=== PATIENT | male | born 1935 | race Two or more races ===

== ENCOUNTER 2016-09-09 22:50 | Inpatient (IN) | payer MEDICARE ==
[~2016-09-09] VITALS: Ht 175.3 cm; Wt 54.4 kg
[2016-09-10 02:00] VITALS: BP 145/60
[2016-09-10] MEDS ORDERED: MAGNESIUM HYDROXIDE 30 ML UDC PO PRN (05:00)
[2016-09-10] MEDS ORDERED: MAG HYDROX/AL HYDROX/SIMETH 30 ML UDC PO PRN (05:00)
[2016-09-10] MEDS ORDERED: ACETAMINOPHEN 325 MG TABLET PO PRN (05:00)
[2016-09-10 07:54] LABS: DIFF TOTAL % 100 %; EOSINOPHILS % (AUTO) 0.1 % (0.0-6.0); HEMATOCRIT 30 % (39-51); HEMOGLOBIN 9.6 g/dL (13.5-17.5); LYMPHOCYTES # (AUTO) 1.1 /CMM (0.8-4.8); MEAN CORPUSCULAR HEMOGLOBIN 27 PG (26.0-33.0); MEAN CORPUSCULAR HGB CONC 33 g/dl (31.0-36.0); MEAN CORPUSCULAR VOLUME 82 fL (80-96); MONOCYTES # (AUTO) 0.7 /CMM (0.1-1.30); MONOCYTES % (AUTO) 5.7 % (2.0-12.0); NEUTROPHILS # (AUTO) 10.5 /CMM (1.8-8.9); NEUTROPHILS % (AUTO) 85.2 % (43.0-81.0); PLATELET COUNT (AUTO) 265 /CMM (150-450); RED BLOOD CELL COUNT(AUTO) 3.61 MIL/uL (4.5-6.0); WHITE BLOOD COUNT (AUTO) 12.3 K/uL (4.3-11.0)
[2016-09-10 08:00] VITALS: BP 106/45
[2016-09-10 08:04] LABS: CALCIUM, SERUM 9.5 mg/dL (8.5-10.1); POTASSIUM 4.2 mmol/L (3.5-5.1)
[2016-09-10 08:10] LABS: CHOLESTEROL 91 mg/dL (<200); HDL CHOLESTEROL 20 mg/dL (40-60); LDL 55 mg/dL (0-99); TRIGLYCERIDES 67 mg/dL (30-150)
[2016-09-10 16:00] VITALS: BP 133/58
[2016-09-10 20:00] VITALS: BP 138/54
[2016-09-10] MEDS: DIVALPROEX SODIUM 250 MG TABLET.DR PO SCH (21:21)
[2016-09-10] MEDS: TEMAZEPAM 7.5 MG CAPSULE PO PRN (21:21)
[2016-09-11 07:43] LABS: BASOPHILS # (AUTO) 0.1 /CMM (0.0-0.2); DIFF TOTAL % 100 %; EOSINOPHILS % (AUTO) 0.2 % (0.0-6.0); HEMATOCRIT 30 % (39-51); HEMOGLOBIN 9.7 g/dL (13.5-17.5); LYMPHOCYTES # (AUTO) 1.2 /CMM (0.8-4.8); LYMPHOCYTES % (AUTO) 9.8 % (20.0-44.0); MEAN CORPUSCULAR HEMOGLOBIN 26 PG (26.0-33.0); MEAN CORPUSCULAR HGB CONC 32 g/dl (31.0-36.0); MEAN CORPUSCULAR VOLUME 81 fL (80-96); MONOCYTES # (AUTO) 0.9 /CMM (0.1-1.30); MONOCYTES % (AUTO) 7.1 % (2.0-12.0); NEUTROPHILS # (AUTO) 10.2 /CMM (1.8-8.9); NEUTROPHILS % (AUTO) 81.9 % (43.0-81.0); PLATELET COUNT (AUTO) 253 /CMM (150-450); RED BLOOD CELL COUNT(AUTO) 3.69 MIL/uL (4.5-6.0); WHITE BLOOD COUNT (AUTO) 12.4 K/uL (4.3-11.0)
[2016-09-11 08:00] VITALS: BP 146/60
[2016-09-11] MEDS: DIVALPROEX SODIUM 250 MG TABLET.DR PO SCH ×2 (08:14→08:17)
[2016-09-11 09:00] LABS: ALBUMIN 2.2 g/dL (3.4-5.0); BILIRUBIN,TOTAL 0.6 mg/dL (0.2-1.0); CALCIUM, SERUM 9.5 mg/dL (8.5-10.1); CREATININE 0.9 mg/dL (0.6-1.3); POTASSIUM 4.3 mmol/L (3.5-5.1); TOTAL PROTEIN, SERUM 6.2 g/dL (6.4-8.2)
[2016-09-11] MEDS: LORAZEPAM 0.5 MG TABLET PO PRN (15:04)
[2016-09-11 16:00] VITALS: BP 129/58
[2016-09-11 19:16] LABS: KETONES,URINE 1+ (NEGATIVE); LEUKOCYTE ESTERASE ,URINE NEGATIVE (NEGATIVE); PH,URINE 5.5 (5.0-8.0)
[2016-09-11 19:30] LABS: ADD UA MICROSCOPIC YES
[2016-09-11 19:53] LABS: ADD URINE CULTURE NO; RBC,URINE 21-50 /HPF (0-2)
[2016-09-11 20:00] VITALS: BP 150/65
[2016-09-11] MEDS: VALPROIC ACID 250 MG/5 ML UDC PO SCH (21:13)
[2016-09-11] MEDS: TEMAZEPAM 7.5 MG CAPSULE PO PRN (22:16)
[2016-09-12 08:29] VITALS: BP 129/60
[2016-09-12] MEDS: VALPROIC ACID 250 MG/5 ML UDC PO SCH ×2 (08:34→21:14)
[2016-09-12 16:39] VITALS: BP 118/60
[2016-09-12 19:31] VITALS: BP 133/55
[2016-09-12] MEDS: TEMAZEPAM 7.5 MG CAPSULE PO PRN (21:14)
[2016-09-13 08:00] VITALS: BP 132/53
[2016-09-13] MEDS: VALPROIC ACID 250 MG/5 ML UDC PO SCH ×4 (08:32→22:33)
[2016-09-13 16:04] VITALS: BP 141/53
[2016-09-13 20:00] VITALS: BP 113/42
[2016-09-13] MEDS: QUETIAPINE FUMARATE 25 MG TABLET PO SCH (22:32)
[2016-09-13] MEDS: TEMAZEPAM 7.5 MG CAPSULE PO PRN (22:33)
[2016-09-14 08:00] VITALS: BP 136/77
[2016-09-14] MEDS: LORAZEPAM 0.5 MG TABLET PO PRN (08:09)
[2016-09-14] MEDS: VALPROIC ACID 250 MG/5 ML UDC PO SCH ×2 (08:09→21:18)
[2016-09-14 16:00] VITALS: BP 136/51
[2016-09-14 19:59] VITALS: BP 137/49
[2016-09-14] MEDS: QUETIAPINE FUMARATE 25 MG TABLET PO SCH (21:18)
[2016-09-14] MEDS: TEMAZEPAM 7.5 MG CAPSULE PO PRN (21:19)
[2016-09-15 08:00] VITALS: BP 143/56
[2016-09-15] MEDS: VALPROIC ACID 250 MG/5 ML UDC PO SCH (08:50)
[2016-09-15 16:00] VITALS: BP 109/39
[2016-09-15] MEDS ORDERED: DIVALPROEX SODIUM 125 MG CAP.SPRINK PO SCH (17:00)
[2016-09-15 19:53] VITALS: BP 145/53
[2016-09-16 07:07] LABS: BASOPHILS % (AUTO) 0.1 % (0.0-2.0); DIFF TOTAL % 100 %; EOSINOPHILS % (AUTO) 0.3 % (0.0-6.0); HEMATOCRIT 30 % (39-51); HEMOGLOBIN 9.7 g/dL (13.5-17.5); LYMPHOCYTES # (AUTO) 1.2 /CMM (0.8-4.8); LYMPHOCYTES % (AUTO) 10.7 % (20.0-44.0); MEAN CORPUSCULAR HEMOGLOBIN 26 PG (26.0-33.0); MEAN CORPUSCULAR HGB CONC 33 g/dl (31.0-36.0); MEAN CORPUSCULAR VOLUME 80 fL (80-96); MONOCYTES # (AUTO) 0.8 /CMM (0.1-1.30); MONOCYTES % (AUTO) 7.4 % (2.0-12.0); NEUTROPHILS % (AUTO) 81.5 % (43.0-81.0); PLATELET COUNT (AUTO) 209 /CMM (150-450); RED BLOOD CELL COUNT(AUTO) 3.72 MIL/uL (4.5-6.0); WHITE BLOOD COUNT (AUTO) 11.1 K/uL (4.3-11.0)
[2016-09-16 07:22] LABS: CALCIUM, SERUM 9.4 mg/dL (8.5-10.1); CREATININE 0.9 mg/dL (0.6-1.3)
[2016-09-16 08:43] VITALS: BP 125/53
[2016-09-16 15:57] VITALS: BP 117/64
[2016-09-16 20:00] VITALS: BP 140/55
[2016-09-16] MEDS ORDERED: VALPROIC ACID 250 MG/5 ML UDC PO SCH (21:00)
[2016-09-16] MEDS ORDERED: QUETIAPINE FUMARATE 25 MG TABLET PO SCH (22:00)
[2016-09-17 08:00] VITALS: BP 125/54
[2016-09-17] MEDS: VALPROIC ACID 250 MG/5 ML UDC PO SCH ×3 (08:53→22:04)
[2016-09-17] MEDS ORDERED: TEMAZEPAM 7.5 MG CAPSULE PO PRN (15:30)
[2016-09-17] MEDS ORDERED: LORAZEPAM 0.5 MG TABLET PO PRN (15:30)
[2016-09-17 16:00] VITALS: BP 120/54
[2016-09-17 20:00] VITALS: BP 135/56
[2016-09-17] MEDS: QUETIAPINE FUMARATE 25 MG TABLET PO SCH (22:04)
[2016-09-18 07:38] VITALS: BP 124/60
[2016-09-18 08:00] VITALS: BP 124/60
[2016-09-18] MEDS: VALPROIC ACID 250 MG/5 ML UDC PO SCH ×2 (09:00→21:05)
[2016-09-18] MEDS ORDERED: Z GUARD REMEDY 2 OZ OINT TP PRN (15:30)
[2016-09-18] MEDS: Z GUARD REMEDY 2 OZ OINT TP SCH ×2 (15:45→21:06)
[2016-09-18 16:00] VITALS: BP 115/53
[2016-09-18 20:00] VITALS: BP 104/64
[2016-09-18] MEDS: QUETIAPINE FUMARATE 25 MG TABLET PO SCH (22:31)
[2016-09-19] MEDS: VALPROIC ACID 250 MG/5 ML UDC PO SCH ×2 (09:00→20:59)
[2016-09-19] MEDS: Z GUARD REMEDY 2 OZ OINT TP SCH ×2 (09:16→21:45)
[2016-09-19 09:59] LABS: BASOPHILS % (AUTO) 0.2 % (0.0-2.0); DIFF TOTAL % 100 %; EOSINOPHILS % (AUTO) 0.2 % (0.0-6.0); HEMATOCRIT 31 % (39-51); HEMOGLOBIN 9.9 g/dL (13.5-17.5); LYMPHOCYTES # (AUTO) 1.1 /CMM (0.8-4.8); LYMPHOCYTES % (AUTO) 10.2 % (20.0-44.0); MEAN CORPUSCULAR HEMOGLOBIN 26 PG (26.0-33.0); MEAN CORPUSCULAR HGB CONC 32 g/dl (31.0-36.0); MEAN CORPUSCULAR VOLUME 80 fL (80-96); MONOCYTES # (AUTO) 0.8 /CMM (0.1-1.30); MONOCYTES % (AUTO) 7.7 % (2.0-12.0); NEUTROPHILS # (AUTO) 8.6 /CMM (1.8-8.9); NEUTROPHILS % (AUTO) 81.7 % (43.0-81.0); PLATELET COUNT (AUTO) 212 /CMM (150-450); RED BLOOD CELL COUNT(AUTO) 3.88 MIL/uL (4.5-6.0); WHITE BLOOD COUNT (AUTO) 10.5 K/uL (4.3-11.0)
[2016-09-19 10:00] VITALS: BP 134/90
[2016-09-19 10:12] LABS: CALCIUM, SERUM 9.7 mg/dL (8.5-10.1); CREATININE 1.1 mg/dL (0.6-1.3); POTASSIUM 4.3 mmol/L (3.5-5.1)
[2016-09-19 15:40] VITALS: BP 124/57
[2016-09-19 20:03] VITALS: BP 139/84
[2016-09-19] MEDS ORDERED: QUETIAPINE FUMARATE 25 MG TABLET PO SCH (22:00)
[2016-09-20 08:00] VITALS: BP 136/78
[2016-09-20] MEDS: VALPROIC ACID 250 MG/5 ML UDC PO SCH (08:22)
[2016-09-20 09:00] VITALS: BP 149/50
[2016-09-20] MEDS ORDERED: ACETAMINOPHEN 650 MG/SUPP.RECT RC PRN (09:00)
[2016-09-20] MEDS ORDERED: QUET25TA PO (10:34)
[2016-09-20] MEDS ORDERED: TEMA7.5C PO (10:34)
[2016-09-20] MEDS ORDERED: LORA-258 PO (10:34)
[2016-09-20] MEDS ORDERED: VALP250C3 PO (10:34)
== END 2016-09-20 09:44 | disposition short-term general hospital (02) | DRG 885 ==
LOC: GPS 09-10 01:28
PROVIDERS: ADMIT Psychiatry & Neurology Psychiatry
DX: F39 Unspecified mood [affective] disorder (principal); F03.91 Unspecified dementia, unspecified severity, with behavioral disturbance; F29 Unspecified psychosis not due to a substance or known physiological condition; D72.829 Elevated white blood cell count, unspecified; I10 Essential (primary) hypertension; J44.9 Chronic obstructive pulmonary disease, unspecified; Z73.6 Limitation of activities due to disability; R79.89 Other specified abnormal findings of blood chemistry
CPT/HCPCS: 36415; 70450-TC; 71010-TC; 71020-TC; 80048-TC; 80053-TC; 80061-TC; 80164-TC; 81000-TC; 84443-TC; 85025-TC; 87081-TC; 92611-TC; 97001-TC; 97116-TC; 97530-TC

== ENCOUNTER 2016-09-20 09:41 | Inpatient (IN) | payer MEDICARE ==
[~2016-09-20] VITALS: Ht 167.6 cm; Wt 54.1 kg
--- NOTE | 2016-09-20 09:41 | NUR ---
[facility] GPS UNIT FOR INCREASED LETHARGY AND FEVER OF 101 TODAY. NAD NOTED. PT IS AO X1, FOLLOWS COMMANDS, NEEDS FREQUENT REDIRECTION. PT PLACED IN GOWN AND MONITOR, CURRENTLY TACHYPNIC AND TACHYCARDIC. CODE SEPSIS CALLED. DR MORIN AT BEDSIDE FOR EVAL.
[2016-09-20] MEDS ORDERED: ACETAMINOPHEN 650 MG/SUPP.RECT RC ONE ×3 (09:45→10:00)
[2016-09-20] MEDS ORDERED: IV NS 0.9% 1,000 ML BAG IV ONE (10:00)
[2016-09-20] MEDS ORDERED: PIPERACILLIN /TAZOBACTAM 3.375 G in IV D5W 50 ML IV ONE (10:00)
[2016-09-20] MEDS ORDERED: IV NS 0.9% 2,000 ML ONE (10:06)
[2016-09-20] MEDS ORDERED: IV SET PRIMARY PUMP SET 1 EA INFUS.SET MC ONE ×2 (10:06→15:22)
[2016-09-20 10:08] LABS: CALCIUM, SERUM 9.7 mg/dL (8.5-10.1); CREATININE 1.2 mg/dL (0.6-1.3); POTASSIUM 4.4 mmol/L (3.5-5.1)
[2016-09-20 10:10] LABS: BASOPHILS % (AUTO) 0.2 % (0.0-2.0); EOSINOPHILS % (AUTO) 0.1 % (0.0-6.0); HEMATOCRIT 33 % (39-51); HEMOGLOBIN 10.7 g/dL (13.5-17.5); LYMPHOCYTES % (AUTO) 7.5 % (20.0-44.0); MEAN CORPUSCULAR HEMOGLOBIN 26 PG (26.0-33.0); MEAN CORPUSCULAR HGB CONC 33 g/dl (31.0-36.0); MEAN CORPUSCULAR VOLUME 79 fL (80-96); MONOCYTES # (AUTO) 0.6 /CMM (0.1-1.30); MONOCYTES % (AUTO) 4.9 % (2.0-12.0); NEUTROPHILS # (AUTO) 11.5 /CMM (1.8-8.9); NEUTROPHILS % (AUTO) 87.3 % (43.0-81.0); PLATELET COUNT (AUTO) 213 /CMM (150-450); RED BLOOD CELL COUNT(AUTO) 4.17 MIL/uL (4.5-6.0); WHITE BLOOD COUNT (AUTO) 13.1 K/uL (4.3-11.0)
[2016-09-20 10:14] LABS: ALBUMIN 2.1 g/dL (3.4-5.0); BILIRUBIN,DIRECT 0.5 mg/dL (0.0-0.2); TOTAL PROTEIN, SERUM 6.4 g/dL (6.4-8.2)
[2016-09-20 10:15] LABS: APPEARANCE,URINE Slightly Cloudy (CLEAR); BILIRUBIN,URINE MODERATE (NEGATIVE); BLOOD, URINE Large Ery/uL (NEGATIVE); COLOR,URINE Dark (YELLOW); KETONES,URINE 15 (NEGATIVE); LEUKOCYTE ESTERASE ,URINE Negative (NEGATIVE); NITRITE, URINE Negative (NEGATIVE); PH,URINE 5.5 (5.0-8.0); PROTEIN,URINE 100 mg/dl (NEGATIVE); UGLUCOSE Negative (NEGATIVE); UROBILINOGEN,URINE >=8.0 EU/dL (0.2)
[2016-09-20 10:17] LABS: TROPONIN I 0.492 ng/mL (0.00-0.056)
[2016-09-20] MEDS ORDERED: ASPIRIN 300 MG/SUPP.RECT RC ONE ×2 (10:20→10:30)
[2016-09-20 10:22] LABS: INR 1.24 (0.87-1.13); PROTHROMBIN TIME 13.4 SECS (9.5-12.7)
--- NOTE | 2016-09-20 10:26 | NUR ---
PT MORE ALERT AT THIS TIME, NON COMBATIVE CURRENTLY, SITTER AT BEDSIDE.
[2016-09-20 10:28] LABS: LACTIC ACID 1.3 mmol/L (0.4-2.0)
--- NOTE | 2016-09-20 10:28 | NUR ---
ELEVATED TROPONIN REPORTED TO MD, PT DENIES CHEST PAIN.
[2016-09-20 10:29] LABS: ADD URINE CULTURE NO; BACTERIA,URINE Few /HPF (None Seen); SQUAMOUS EPITHELIAL CELL,UR Rare /HPF (None Seen); URINE AMORPHOUS URATE Few /HPF (None Seen)
[2016-09-20] MEDS ORDERED: TEMA7.5C PO (10:34)
[2016-09-20] MEDS ORDERED: QUET25TA PO (10:34)
[2016-09-20] MEDS ORDERED: LORA-258 PO (10:34)
[2016-09-20] MEDS ORDERED: VALP250C3 PO (10:34)
--- NOTE | 2016-09-20 10:55 | NUR ---
PAGED NURSING SUPP FOR TELE BED
--- NOTE | 2016-09-20 11:16 | NUR ---
REPORT GIVEN TO WADE GONZALES FOR CONTINUITY OF CARE
--- NOTE | 2016-09-20 11:25 | NUR ---
PAGED ANIMAL [facility] HUNTER PANEL DR ZA ALLISON
--- NOTE | 2016-09-20 12:10 | NUR ---
MEN'S SWIM COACH ADMITTING NOTES PATIENT ADMITTED [facility] ACC[facility] BY 2 STAFF FROM EMERGENCY ROOM. TRANSFERRED TO BED COMFORTABLY. HEAD OF BED ELEVATED. ON 02 VIA N/C @ 2LPM WITH 02 SAT OF 98%. PATIENT PLACED ON TELE-MONITORING WITH READING OF SR AND HR OF 79. V/S CHECKED AND RECORDED. PATIENT HAS TWO IV ACCESS, ONE ON RIGHT FOREARM G#18 AND LEFT FOREARM G#14, BOTH INTACT AND PATENT. BED KEPT LOW AND LOCKED. CALL LIGHT KEPT WITHIN REACH. ALL ROUTINE ADMITTING ASSESSMENT DONE. WILL MONITOR ACCORDINGLY. Addendum: 09/20/16 at 1520 by BECKY POLANCO RN ADDENDUM: PATIENT ADMITTED WITH DIAGNOSIS OF SEPSIS, ALTERED MENTAL STATUS AND FEVER WITH SIGNIFICANT DIAGNOSIS HISTORY OF HTN AND PSYCHOSIS.
[2016-09-20] MEDS ORDERED: TEMAZEPAM 7.5 MG CAPSULE PO PRN (13:00)
[2016-09-20] MEDS ORDERED: LORAZEPAM 0.5 MG TABLET PO PRN (13:00)
--- NOTE | 2016-09-20 13:46 | NUR ---
WOUND CARE CONSULT: PATIENT SEEN AND SKIN ASSESSMENT DONE. PATIENT WITH GENERALIZED WEAKNESS, INCONTINENT, NEEDS ASSIST WITH TURNING AND REPOSITIONING AT THIS TIME, EDUARD Vega, NURSING STAFF ORDERED NIKKI ISOFLEX VANESSA BED AND WILL BE PLACED WHEN AVAILABLE IN THE UNIT. SEE TODAY'S SKIN ASSESSMENT IN PCS ALONG WITH RECOMMENDATIONS. RECOMMEND MOISTURE PROTECTION WITH Z GUARD ORDERED, TURN AND REPOSITION EVERY 2 HRS PATIENT CONDITION PERMITS, OFFLOAD BOTH HEELS. ALL DISCUSSED WITH NURSING STAFF. MD IN AGREEMENT WITH PLAN OF CARE. Addendum: 09/20/16 at 1348 by SAMM TA WNDNU Amended: Links added.
[2016-09-20] MEDS ORDERED: ACETAMINOPHEN 650 MG/SUPP.RECT RC PRN (14:00)
[2016-09-20] MEDS ORDERED: IV D5/ 0.9% NACL 1,000 ML IV PRN (14:00)
[2016-09-20] MEDS ORDERED: ONDANSETRON HCL/PF 4 MG/2 ML VIAL IVP PRN (14:00)
[2016-09-20] MEDS: VALPROIC ACID 250 MG/5 ML UDC PO SCH ×2 (14:04→21:00)
[2016-09-20] MEDS: Z GUARD REMEDY 2 OZ OINT TP SCH ×2 (14:37→16:49)
[2016-09-20] MEDS ORDERED: SECONDARY IV SET 1 EA INFUS.SET MC ONE ×2 (15:22→16:43)
[2016-09-20] MEDS: PANTOPRAZOLE 40 MG VIAL IV SCH (15:27)
[2016-09-20] MEDS: METRONIDAZOLE 500MG/ NS 100ML 500 MG in PREMIX 1 EA IV SCH ×2 (15:46→21:04)
--- NOTE | 2016-09-20 15:50 | NUR ---
RN NOTES MD ORDERED ANTIBIOTIC FLAGYL 500MG IVPB EVERY 8HRS AND STARTED. TO START ON LEVAQUIN 750MG IVPB Q 48 HRS, WILL MONITOR FOR ANY ADVERSE EFFECTS AND EFFECTIVENESS OF THERAPIES.
[2016-09-20 16:00] VITALS: BP 105/54
[2016-09-20] MEDS ORDERED: LEVOFLOXACIN 750 MG /D5W 150ML 750 MG in PREMIX 1 EA IV SCH (16:00)
[2016-09-20] MEDS: LEVOFLOXACIN 750 MG /D5W 150ML 750 MG in PREMIX 1 EA IV SCH (16:43)
[2016-09-20] MEDS: ENOXAPARIN SODIUM 40 MG/0.4 ML DISP.SYRIN SQ SCH (16:51)
--- NOTE | 2016-09-20 17:19 | NUR ---
RN NOTES PATIENT NOTED WITH TROPONIN LEVEL THIS AFTERNOON IS 0.477 FROM 0.492 THIS MORNING. LEFT MESSAGE TO MD, WILL FOLLOW-UP
--- NOTE | 2016-09-20 18:59 | NUR ---
POST PARTUM NURSE CLOSING NOTES PATIENT IN BED ALERT AND ORIENTED X1, FOLLOWS SIMPLE COMMANDS. NO ACUTE SIGNS OF DISTRESS AT THIS TIME. ALL DUE MEDS GIVEN PRESCRIBED AND DUE NEEDS/CARE PROVIDED. ON TELE MONITORING WITH SINUS RHYTHM AND HR OF 70 AT THIS TIME. MAINTAINED ON 02 VIA N/C @ 2LPM, TOLERATING WELL WITH 02 SAT ABOVE 92%. IVF OF D5 NS @ 100ML/HR IN PROGRESS TO LEFT FOREARM, NO SIGNS OF INFILTRATION OR PHLEBITIS NOTED. CALL LIGHT WITHIN REACH. BED KEPT LOW AND LOCKED. SAFETY PRECAUTIONS MAINTAINED. PATIENT ON NPO PER MD ORDERED. RAPID INFLUENZA ANTIGEN A AND B COLLECTED AND SENT TO LAB. WILL ENDORSED TO STRING WINDING MACHINE OPERATOR RN.
--- NOTE | 2016-09-20 19:40 | NUR ---
RN OPENING NOTES RECEIVED REPORT FROM GIA RN. FOUND Pt AWAKE, RESTING IN BED. A/OX1, CONFUSED. Pt IS FROM [place]ER[place]. NO S/S OF ACUTE DISTRESS OR SOB NOTED. IV ACCESS ON LFA #18G & RFA #14G. IVF D5NS @100ML/HR. SAFETY MEASURES IN PLACE. BED LOW, LOCKED, HOB ELEVATED, SIDE RAILS UP, CALL LIGHT WITHIN REACH. WILL CONTINUE TO MONITOR Pt THROUGHOUT THE NIGHT.
[2016-09-20 20:00] VITALS: BP 105/55
[2016-09-20] MEDS: SIMVASTATIN 20 MG TABLET PO SCH (21:22)
[2016-09-20] MEDS: QUETIAPINE FUMARATE 25 MG TABLET PO SCH (21:22)
[2016-09-20 22:00] VITALS: BP 105/55
[2016-09-21] VITALS: BP 121/53
[2016-09-21 04:00] VITALS: BP 130/54
[2016-09-21] MEDS: METRONIDAZOLE 500MG/ NS 100ML 500 MG in PREMIX 1 EA IV SCH ×3 (05:30→21:31)
--- NOTE | 2016-09-21 06:27 | NUR ---
RN CLOSING NOTES NO SIGNIFICANT CHANGES DURING THE SHIFT. NO S/S OF ACUTE DISTRESS OR SOB NOTED. ALL NEEDS MET AND ATTENDED TO. SAFETY MEASURES IN PLACE. TELE READING SR 89. WILL ENDORSE TO DAYSHIFT RN FOR Pt's ALICIA.
[2016-09-21 07:05] VITALS: BP 132/52
--- NOTE | 2016-09-21 07:13 | NUR ---
EMS COORDINATOR OPENING NOTES PATIENT RECEIVED IN BED AWAKE IN NO ACUTE SIGNS OF DISTRESS. ALERT AND ORIENTED X 2, ABLE TO FOLLOW SIMPLE COMMANDS. ON TELE-MONITORING WITH READING OF SR WITH HR OF 86 AT THIS TIME. IV ACCESS ON LFA G #18 AND RFA G#14 INTACT AND PATENT. IVF D5NS @100ML/HR INFUSING WELL. CALL LIGHT WITHIN REACH. BED LOW, LOCKED WITH SIDE RAILS UP. ALL SAFETY MEASURES IN PLACE. WILL CONTINUE TO MONITOR ACCORDINGLY.
[2016-09-21 07:30] LABS: EOSINOPHILS # (AUTO) 0.1 /CMM (0.0-0.7); EOSINOPHILS % (AUTO) 0.6 % (0.0-6.0); HEMATOCRIT 33 % (39-51); HEMOGLOBIN 10.4 g/dL (13.5-17.5); LYMPHOCYTES # (AUTO) 1.6 /CMM (0.8-4.8); LYMPHOCYTES % (AUTO) 15.8 % (20.0-44.0); MEAN CORPUSCULAR HEMOGLOBIN 26 PG (26.0-33.0); MEAN CORPUSCULAR HGB CONC 32 g/dl (31.0-36.0); MEAN CORPUSCULAR VOLUME 80 fL (80-96); MONOCYTES # (AUTO) 0.9 /CMM (0.1-1.30); MONOCYTES % (AUTO) 8.8 % (2.0-12.0); NEUTROPHILS # (AUTO) 7.4 /CMM (1.8-8.9); NEUTROPHILS % (AUTO) 74.8 % (43.0-81.0); PLATELET COUNT (AUTO) 205 /CMM (150-450); RDW COEFFICIENT OF VARIATION 17.4 (11.5-15.0); RED BLOOD CELL COUNT(AUTO) 4.05 MIL/uL (4.5-6.0); WHITE BLOOD COUNT (AUTO) 9.9 K/uL (4.3-11.0)
[2016-09-21 07:51] LABS: CALCIUM, SERUM 9.3 mg/dL (8.5-10.1); CREATININE 1.2 mg/dL (0.6-1.3); MAGNESIUM 2.1 mg/dL (1.8-2.4); PHOSPHORUS 3.2 mg/dL (2.5-4.9); POTASSIUM 4.7 mmol/L (3.5-5.1)
[2016-09-21] MEDS: PANTOPRAZOLE 40 MG VIAL IV SCH (08:10)
[2016-09-21] MEDS: VALPROIC ACID 250 MG/5 ML UDC PO SCH ×2 (08:11→21:32)
[2016-09-21] MEDS: ASPIRIN EC 81 MG TABLET.DR PO SCH (08:11)
[2016-09-21] MEDS: Z GUARD REMEDY 2 OZ OINT TP SCH ×2 (08:11→16:30)
--- NOTE | 2016-09-21 10:12 | NUR ---
RN NOTES PATIENT DISCONTINUED FROM TELEMONITORING, NO COMPLAINTS OF CHEST OR DISCOMFORTS VOICED. WILL CONTINUE TO MONITOR.
[2016-09-21] MEDS ORDERED: IV D5/0.45 NACL 500 ML IV PRN (11:00)
--- NOTE | 2016-09-21 11:05 | NUR ---
RN NOTES PATIENT NOTED WITH NA LEVEL OF 150, ANALYTIC PROGRAMMER ALYSIA PORTER INFORMED WITH ORDER TO CHANGE D5 0.9 NACL 100ML/HR TO D5 1/2 NS @100ML/HR. ALSO NPO DISCONTINUED AND START PATIENT ON PUREED DIET AND FEED WITH ASSISTANCE. WILL WATCH CLOSELY FOR ASPIRATION WHEN FEEDING. WILL MONITOR ACCORDINGLY.
[2016-09-21] MEDS: IV D5/0.45 NACL 1,000 ML IV PRN (11:23)
[2016-09-21 11:45] LABS: THYROID STIMULATING HORMONE 0.734 uIU/mL (0.358-3.74)
[2016-09-21 13:10] LABS: HEPATITIS A AB, IgM Negative (Negative); HEPATITIS B CORE AB, IgM Negative (Negative); HEPATITIS C VIRUS AB <0.1 s/co ratio (0.0-0.9)
[2016-09-21 16:00] VITALS: BP_SYST 121; BP_SYST 126; BP_DIAS 67; BP_DIAS 72
[2016-09-21] MEDS: ENOXAPARIN SODIUM 40 MG/0.4 ML DISP.SYRIN SQ SCH (16:31)
--- NOTE | 2016-09-21 18:37 | NUR ---
MS RN OPENING NOTES PATIENT IN BED AWAKE AND LYING @ MODERATE HIGH BACKREST IN NO ACUTE SIGNS OF DISTRESS. ALERT AND ORIENTED X 2, ABLE TO FOLLOW SIMPLE COMMANDS. VISITED BY SON THIS AFTERNOON. IV ACCESS ON LFA G #18 DISLODGED, NO BLEEDING NOTED. IV ACCESS ON RFA G#14 INTACT AND PATENT WITH IVF D5 1/2 NS @100ML/HR INFUSING WELL, NO SIGNS OF INFILTRATION NOTED. PATIENT NOTED WITH IRON LEVEL OF 24, TIBC 89 AND FERRITIN 1767, RODENT CONTROL WORKER Johnna PORTER MADE AWARE WIYTH ORDER TO DO BMP AND CBC. CALL LIGHT WITHIN REACH. BED LOW, LOCKED WITH SIDE RAILS UP. ALL SAFETY MEASURES IN PLACE. WILL ENDORSED TO SPORTS REPORTER FOR ALICIA..
--- NOTE | 2016-09-21 19:30 | NUR ---
RN NOTE; RECEIVED PT IN BED AWAKE AND RESPONSIVE. BREATHING EVENLY. NO SOB. NO DISTRESS. SKIN WARM AND DRY TO TOUCH, NO C/O PAIN OR DISCOMFORT. STILL CONFUSED. NO COMBATIVE BEHAVIOR. NEEDS ATTENDED. BED LOW LOCKED . SRs UP. CALL LIGHT WITHIN REACH. WILL CONT TO MONITOR
[2016-09-21 20:00] VITALS: BP 127/48
[2016-09-21 20:16] VITALS: BP 127/48
[2016-09-21] MEDS: QUETIAPINE FUMARATE 25 MG TABLET PO SCH (21:31)
[2016-09-21] MEDS: SIMVASTATIN 20 MG TABLET PO SCH (21:31)
--- NOTE | 2016-09-21 22:00 | NUR ---
RN NOTE; RELAYED THE PRELIMINARY RESULT OF BLOOD CULTURES TO DR. SOPHIA NAILS AT THIS TIME. PT ALREADY TO 2 ATBs OF FLAGYL AND LEVAQUIN. REMAINED STABLE AND AFEBRILE. W/ NO S/S OR C/O PAIN OR DISCOMFORT . WILL CONT TO MONITOR AND WILL RELAY TO DAY SHIFT RN FOR F/U.
[2016-09-22] MEDS: IV D5/0.45 NACL 1,000 ML IV PRN ×2 (03:23→17:58)
[2016-09-22] MEDS: METRONIDAZOLE 500MG/ NS 100ML 500 MG in PREMIX 1 EA IV SCH ×3 (05:08→20:02)
--- NOTE | 2016-09-22 06:09 | NUR ---
RN NOTE; PT IN BED AWAKE. CONFUSED, OX1. BREATHING EVENLY. NO SOB. W/ COUGHING EPISODES . NO DISTRESS, NO C/O PAIN OR DISTRESS. REMAINED STABLE W/ NO CHANGE DURING THE NIGHT. NEEDS ATTENDED. CLEANED AND DRIED. GOOD SKIN CARE ON PERINEAL AND SACRAL AREA RENDERED. ON ONGOING IVF HYDRATION AND ATB MARLENE WELL. BED LOW LOCKED. CALL LIGHT WITHIN REACH, WILL CONT TO MONITOR AND WILL ENDORSE TO AM SHIFT FOR ALICIA.
[2016-09-22 07:07] LABS: BASOPHILS % (AUTO) 0.1 % (0.0-2.0); EOSINOPHILS # (AUTO) 0.1 /CMM (0.0-0.7); HEMATOCRIT 30 % (39-51); HEMOGLOBIN 9.7 g/dL (13.5-17.5); LYMPHOCYTES # (AUTO) 1.3 /CMM (0.8-4.8); LYMPHOCYTES % (AUTO) 13.9 % (20.0-44.0); MEAN CORPUSCULAR HEMOGLOBIN 26 PG (26.0-33.0); MEAN CORPUSCULAR HGB CONC 33 g/dl (31.0-36.0); MEAN CORPUSCULAR VOLUME 79 fL (80-96); MONOCYTES # (AUTO) 0.9 /CMM (0.1-1.30); MONOCYTES % (AUTO) 9.8 % (2.0-12.0); NEUTROPHILS # (AUTO) 7.3 /CMM (1.8-8.9); NEUTROPHILS % (AUTO) 75.2 % (43.0-81.0); PLATELET COUNT (AUTO) 208 /CMM (150-450); RDW COEFFICIENT OF VARIATION 16.8 (11.5-15.0); RED BLOOD CELL COUNT(AUTO) 3.77 MIL/uL (4.5-6.0); WHITE BLOOD COUNT (AUTO) 9.6 K/uL (4.3-11.0)
--- NOTE | 2016-09-22 07:15 | NUR ---
RN OPEN NOTES RECEIVED REPORT FROM CAREER TECHNICAL EDUCATION INSTRUCTOR NURSE. PATIENT IS IN BED. ALERT AND ORIENTED X1. NO COMPLAIN OF PAIN. NO SIGN AND SYMPTOMS OF DISTRESS. BED IS IN LOW POSITION, LOCKED AND 2 SIDE RAILS ARE UP. IV SITE IS INTACT AND POTENT, DS1/2NS @100 ML/HR. WILL CONTINUE TO ASSESS AND MONITOR PATIENT DURING MY SHIFT.
[2016-09-22 07:30] LABS: CALCIUM, SERUM 8.9 mg/dL (8.5-10.1); CREATININE 0.9 mg/dL (0.6-1.3); POTASSIUM 3.7 mmol/L (3.5-5.1)
[2016-09-22 08:00] VITALS: BP 133/48
[2016-09-22] MEDS: PANTOPRAZOLE 40 MG VIAL IV SCH (08:09)
[2016-09-22] MEDS: VALPROIC ACID 250 MG/5 ML UDC PO SCH ×2 (08:09→21:08)
[2016-09-22] MEDS: ASPIRIN EC 81 MG TABLET.DR PO SCH ×2 (08:10→08:18)
--- NOTE | 2016-09-22 08:17 | NUR ---
RN NOTES 0900 MEDS ASPIRIN WASTED DUE TO PATIENT UNABLE TO SWALLOW. ASPIRIN IS EC, COULD NOT CRUSH. WILL CONTACT MD TO CHANGE MED
[2016-09-22] MEDS: Z GUARD REMEDY 2 OZ OINT TP SCH ×2 (08:19→17:03)
[2016-09-22 10:20] VITALS: BP 123/82
[2016-09-22] MEDS ORDERED: FEE PK DOSING 1 MIN EA MC ONE (10:35)
[2016-09-22] MEDS ORDERED: SECONDARY IV SET 1 EA INFUS.SET MC ONE ×3 (11:12→15:25)
[2016-09-22] MEDS: VANCOMYCIN 500 MG in IV D5W 100 ML IV SCH ×2 (11:21→22:02)
[2016-09-22] MEDS ORDERED: SET RED CAP 1 EA INFUS.SET MC ONE (12:33)
[2016-09-22] MEDS: LEVOFLOXACIN 750 MG /D5W 150ML 750 MG in PREMIX 1 EA IV SCH (15:29)
[2016-09-22 16:04] VITALS: BP 107/46
[2016-09-22] MEDS: LACTOBACILLUS RHAMNOSUS GG 1 EACH CAP.SPRINK PO SCH (17:02)
[2016-09-22] MEDS: ENOXAPARIN SODIUM 40 MG/0.4 ML DISP.SYRIN SQ SCH (17:10)
--- NOTE | 2016-09-22 18:51 | NUR ---
RN CLOSING NOTES PATIENT IS IN BED. ALERT AND ORIENTED X1. DENIED PAIN. NO SIGN AND SYMPTOMS OF DISTRESS. IV SITE IN INTACT AND POTENT. D51/2NS IS CURRENTLY RUNNING AT 100 ML/HR. BED IS IN LOWER POSITION, LOCKED, 2 SIDE RAILS ARE UP. WILL ENDORSE TO JACK SPINNER NURSE
[2016-09-22 20:00] VITALS: BP 110/48
--- NOTE | 2016-09-22 20:00 | NUR ---
RECEIVED PATIENT IN BED, PATIENT IS CONFUSED, A&O X1. VSS, AFEBRILE, NO DISTRESS NOTED
[2016-09-22] MEDS: SIMVASTATIN 20 MG TABLET PO SCH (21:08)
[2016-09-22] MEDS: QUETIAPINE FUMARATE 25 MG TABLET PO SCH (21:08)
--- NOTE | 2016-09-22 21:50 | NUR ---
PATIENT HAS BEEN CONFUSED, INCREASED IN AGITATION NOTED, SCHEDULED MEDICATIONS INCLUDING SEROQUEL GIVEN. CONTINUE TO MONITOR
[2016-09-23] MEDS: METRONIDAZOLE 500MG/ NS 100ML 500 MG in PREMIX 1 EA IV SCH (04:16)
--- NOTE | 2016-09-23 06:34 | NUR ---
PATIENT WAS CONFUSED AND RESTLESS THROUGH THE NIGHT, ASKING FOR HIS SON AND WANTED TO GO HOME. PATIENT DID NOT HAVE MUCH SLEEP LAST NIGHT
[2016-09-23 06:44] LABS: BASOPHILS % (AUTO) 0.3 % (0.0-2.0); EOSINOPHILS # (AUTO) 0.1 /CMM (0.0-0.7); EOSINOPHILS % (AUTO) 0.9 % (0.0-6.0); HEMATOCRIT 28 % (39-51); HEMOGLOBIN 9.2 g/dL (13.5-17.5); LYMPHOCYTES # (AUTO) 1.5 /CMM (0.8-4.8); LYMPHOCYTES % (AUTO) 16.8 % (20.0-44.0); MEAN CORPUSCULAR HEMOGLOBIN 26 PG (26.0-33.0); MEAN CORPUSCULAR HGB CONC 33 g/dl (31.0-36.0); MEAN CORPUSCULAR VOLUME 79 fL (80-96); MONOCYTES # (AUTO) 0.8 /CMM (0.1-1.30); MONOCYTES % (AUTO) 9.4 % (2.0-12.0); NEUTROPHILS # (AUTO) 6.4 /CMM (1.8-8.9); NEUTROPHILS % (AUTO) 72.6 % (43.0-81.0); PLATELET COUNT (AUTO) 200 /CMM (150-450); RDW COEFFICIENT OF VARIATION 16.7 (11.5-15.0); RED BLOOD CELL COUNT(AUTO) 3.56 MIL/uL (4.5-6.0); WHITE BLOOD COUNT (AUTO) 8.8 K/uL (4.3-11.0)
[2016-09-23 06:54] LABS: CALCIUM, SERUM 8.7 mg/dL (8.5-10.1); POTASSIUM 3.8 mmol/L (3.5-5.1)
--- NOTE | 2016-09-23 07:48 | NUR ---
RN OPENING NOTES RECEIVED REPORT FROM ENDBANDER NURSE. PATIENT IS IN BED, AWAKE, ALERT X1. NO SIGNS AND SYMPTOMS OF SOB OR DISTRESS. BED IS IN LOW POSITION, LOCKED, 2 SIDE RAILS ARE UP. CALL LIGHT WITHIIN REACH. IV SITE IS POTENT AND INTACT, CURRENTLY RUNNING AT 100 ML/HR. WILL CONTINUE TO ASSESS AND MONITOR PATIENT,
[2016-09-23 08:00] VITALS: BP 128/54
--- NOTE | 2016-09-23 08:37 | NUR ---
CHRISTIAN NOTES 0900 MEDS MEDS ARE ON HOLD DUE TO PENDING DIALYSIS Addendum: 09/23/16 at 1535 by BETTINA CRUZ RN WRONG PATIENT DOCUMENTATION - PLEASE DISREGARD
[2016-09-23] MEDS: LACTOBACILLUS RHAMNOSUS GG 1 EACH CAP.SPRINK PO SCH ×2 (08:45→16:27)
[2016-09-23] MEDS: ASPIRIN 81 MG TAB.CHEW PO SCH (08:45)
[2016-09-23] MEDS: Z GUARD REMEDY 2 OZ OINT TP SCH ×2 (08:45→16:28)
[2016-09-23] MEDS: VALPROIC ACID 250 MG/5 ML UDC PO SCH ×2 (08:45→20:59)
[2016-09-23] MEDS: PANTOPRAZOLE 40 MG VIAL IV SCH (08:46)
--- NOTE | 2016-09-23 10:30 | NUR ---
CHRISTIAN NOTES 899 DR HODGES DISCHARGED THE PATIENT. PATIENT IS NOT GOING TO HAVE DIALYSIS TODAY. ADMINISTERING 0900 BLOOD PRESSURE MEDS Addendum: 09/23/16 at 1535 by BETTINA CRUZ RN WRONG PATIENT DOCUMENTATION - PLEASE DISREGARD
[2016-09-23] MEDS: VANCOMYCIN 500 MG in IV D5W 100 ML IV SCH ×2 (11:55→22:57)
--- NOTE | 2016-09-23 13:05 | NUR ---
RN NOTES IV SITE PATIENT PULLED OUT HIS IV SITE. NEW IV STARTED. SITTER REQUESTED
[2016-09-23] MEDS: METRONIDAZOLE 500 MG TABLET PO SCH ×2 (13:56→20:59)
--- NOTE | 2016-09-23 15:00 | NUR ---
RN NOTES SITTER SITTER IS AT PATIENT BED SIDE
[2016-09-23 16:00] VITALS: BP 134/53
[2016-09-23] MEDS: IV D5/0.45 NACL 1,000 ML IV PRN (16:27)
[2016-09-23] MEDS: ENOXAPARIN SODIUM 40 MG/0.4 ML DISP.SYRIN SQ SCH (16:34)
--- NOTE | 2016-09-23 18:59 | NUR ---
RN CLOSING NOTES PATIENT IN IN BED ALERT AND ORIENTED X1. PATIENT IS CONFUSED AND AGITATED. PATIENT IS TRYING TO CLIMB OUT OF BED. 1:1 SITTER SINCE 1529. NO SIGN AND SYMPTOMS OF DISTRESS. DENIED PAIN. IV SITE IS POTENT AND INTACT, D51/2NS IS CURRENTLY RUNNING AT 100 ML/HR. WILL ENDORSE TO THE ATOMIC SPECTROSCOPIST NURSE.
--- NOTE | 2016-09-23 19:26 | NUR ---
MS WILMER INITIAL NOTES RECEIVED REPORT FROM AM NURSE SHERRI, CHECKED PT HE'S AWAKE AND ALERT BUT CONFUSION NOTED. NOT IN ANY ACUTE DISTRESS NOTED. RE-ORIENTED WHERE HE AT BUT HE'S SAYING HIS IN [place]. IVF STILL INFUSING ON HIS LEFT ARM COVERED WITH KERLIX. SKIN WARM AND DRY TO TOUCH. NOTICED SOME DRYNESS. KEPT HIM COMFORTABLE AND SAFE AT ALL TIMES. WILL CONTINUE CLOSELY MONITORING FOR SAFETY.
[2016-09-23 20:05] VITALS: BP 135/55
[2016-09-23] MEDS: SIMVASTATIN 20 MG TABLET PO SCH (21:00)
[2016-09-23] MEDS: QUETIAPINE FUMARATE 25 MG TABLET PO SCH (21:00)
[2016-09-23] MEDS ORDERED: BENZONATATE 100 MG CAPSULE PO ONE (22:03)
[2016-09-23] MEDS ORDERED: BENZONATATE 100 MG CAPSULE PO PRN (22:30)
--- NOTE | 2016-09-23 22:30 | NUR ---
SERVICE SPRINKLER HELPER/NOTES ROGER FLOWER COUGH MEDICINE GIVEN ORDERED FOR PT COMFORT. ASPIRATION PRECAUTION IMPLEMENTED AND OBSERVED. WILL CONTINUE TO MONITOR.
--- NOTE | 2016-09-23 22:59 | NUR ---
HEALTH SERVICE COORDINATOR/NOTES VANCO TROUGH 7 , VANCOMYCIN IVP BAG HUNG BY [facility]/CHARGE NURSE ORDERED. WILL CONTINUE TO MONITOR.
[2016-09-24] MEDS: IV D5/0.45 NACL 1,000 ML IV PRN ×2 (03:15→17:13)
[2016-09-24 06:31] LABS: BASOPHILS % (AUTO) 0.3 % (0.0-2.0); EOSINOPHILS # (AUTO) 0.1 /CMM (0.0-0.7); EOSINOPHILS % (AUTO) 0.8 % (0.0-6.0); HEMATOCRIT 28 % (39-51); HEMOGLOBIN 8.9 g/dL (13.5-17.5); LYMPHOCYTES # (AUTO) 1.8 /CMM (0.8-4.8); LYMPHOCYTES % (AUTO) 19.2 % (20.0-44.0); MEAN CORPUSCULAR HEMOGLOBIN 25 PG (26.0-33.0); MEAN CORPUSCULAR HGB CONC 32 g/dl (31.0-36.0); MEAN CORPUSCULAR VOLUME 80 fL (80-96); MONOCYTES # (AUTO) 0.8 /CMM (0.1-1.30); MONOCYTES % (AUTO) 8.6 % (2.0-12.0); NEUTROPHILS # (AUTO) 6.5 /CMM (1.8-8.9); NEUTROPHILS % (AUTO) 71.1 % (43.0-81.0); PLATELET COUNT (AUTO) 193 /CMM (150-450); RED BLOOD CELL COUNT(AUTO) 3.52 MIL/uL (4.5-6.0); WHITE BLOOD COUNT (AUTO) 9.2 K/uL (4.3-11.0)
[2016-09-24 06:37] LABS: CALCIUM, SERUM 8.6 mg/dL (8.5-10.1); CREATININE 0.9 mg/dL (0.6-1.3); POTASSIUM 3.7 mmol/L (3.5-5.1)
[2016-09-24] MEDS: METRONIDAZOLE 500 MG TABLET PO SCH ×3 (06:39→22:07)
--- NOTE | 2016-09-24 07:09 | NUR ---
PEDIATRIC ANESTHESIOLOGIST CLOSING NOTES PT AWAKE AND STILL CONFUSION NOTED. SPONGES BATH RENDERED WELL SKIN TREATMENT, Z-GUARD APPLIED COVERED WITH MEPILEX ON SACRUM AREA. STILL WITH DVT PUMP. ALL DUE MEDS GIVEN AND ALL NEEDS MET. KEPT HIM WARM AND COMFORTABLE AT ALL TIMES. SITTER AT THE BEDSIDE FOR SAFETY . ENDORSE TO AM NURSE AVILES FOR CONTINUITY OF CARE.
[2016-09-24] MEDS: Z GUARD REMEDY 2 OZ OINT TP PRN (07:12)
--- NOTE | 2016-09-24 07:15 | NUR ---
MS RN INITIAL NOTES RECEIVED PATIENT IN BED, AWAKE. A/O X1 WITH CONFUSION. BREATHING EVEN AND NON LABORED, ON ROOM AIR, NO SOB NOTED. 1:1 SITTER AT THE BED SIDE. PATIENT APPEARS CALM AND RELAX, IV IN LFA G22 IVF D5 1/2 NS INFUSING AT 100ML/HR. SCD IN PLACE. NO C/O PAIN AT THIS TIME. CALL LIGHT WITHIN REACH WILL CONT TO MONITOR.
[2016-09-24 08:00] VITALS: BP 153/56
[2016-09-24] MEDS: VALPROIC ACID 250 MG/5 ML UDC PO SCH ×2 (08:06→21:55)
[2016-09-24] MEDS: ASPIRIN 81 MG TAB.CHEW PO SCH (08:06)
[2016-09-24] MEDS: LACTOBACILLUS RHAMNOSUS GG 1 EACH CAP.SPRINK PO SCH ×2 (08:06→17:00)
[2016-09-24] MEDS: PANTOPRAZOLE 40 MG VIAL IV SCH (08:06)
--- NOTE | 2016-09-24 08:30 | NUR ---
PATIENT IS SEEN BY DR. WHITNEY/REMY TODAY, PER MD SHE WILL ASK LABORATORY TODAY TO GET SPECIATION AND SENSITIVITY OF PATIENTS ALPHA HEMOLYTIC STREP IN BLOOD CULTURE.
[2016-09-24] MEDS: Z GUARD REMEDY 2 OZ OINT TP SCH ×2 (09:44→17:20)
[2016-09-24] MEDS: VANCOMYCIN 500 MG in IV D5W 100 ML IV SCH (10:46)
--- NOTE | 2016-09-24 10:59 | NUR ---
RECEIVED PHONE CALL FROM JAN/RX. PER JAN, HE WILL ADJUST DOSE OF VANCOMYCIN IV. VANCOMYCIN 500MG CURRENTLY INFUSING, PER JAN HE WILL SEND ANOTHER VANCOMYCIN DOSE X1.
[2016-09-24] MEDS ORDERED: VANCOMYCIN 500 MG in IV D5W 100 ML IV ONE (11:00)
--- NOTE | 2016-09-24 12:33 | NUR ---
PATIENT IS SEEN BY CORNELIUS LIM TODAY. PATIENT WITH POOR APPETITE, PARTICIPATED WITH PT TODAY, ABLE TO WALK WITH ASSISTANCE. IC DESIGNER STANDARD CELLS ORDERED TO ADD BOOST FOR SUPP NOTED AND ACKNOWLEDGED.
--- NOTE | 2016-09-24 12:46 | NUR ---
PATIENT IS SEEN BY ST TODAY, PATIENT UNCOOPERATIVE PER ST. DID NOT PARTICIPATE WITH SWALLOW EXERCISES.
[2016-09-24] MEDS: BOOST PLUS FOOD-CHOCLATE 237 ML BOX PO SCH ×2 (13:16→17:00)
--- NOTE | 2016-09-24 13:23 | NUR ---
FLAGYL 500MG PO WAS WAISTED. PATIENT IS UNCOOPERATIVE, SPIT IT OUT MEDICATION. PATIENT APPEARS ANXIOUS AND AGITATED.
--- NOTE | 2016-09-24 14:31 | NUR ---
PATIENT REFUSING TO EAT, MADE COMFORTABLE IN BED, APPEARS CALM AT THIS TIME, WITH INTERMITTENT AGITATION. OFFERED PO FLUIDS AND BOOTS SUPP BUT REFUSED.
[2016-09-24 16:00] VITALS: BP 151/67
[2016-09-24] MEDS: LEVOFLOXACIN 750 MG /D5W 150ML 750 MG in PREMIX 1 EA IV SCH (16:12)
--- NOTE | 2016-09-24 16:54 | NUR ---
PATIENT APPEARS ANXIOUS AND AGITATED, TRYING TO GET OUT OF BED, PATIENT IS CLEAN AND DRY. OFFERED BOOST DRINK/JUICE/WATER BUT PATIENT SPIT IT OUT AND KICKING HIS LEGS TO NURSES. VETERINARY MICROBIOLOGIST RAPHAEL ORDERED ATIVAN 0.5MG IV NOW NOTED AND ACKNOWLEDGED.
--- NOTE | 2016-09-24 17:22 | NUR ---
PATIENT REFUSED DUE MEDICATIONS, STILL AGITATED. GIVEN ATIVAN 0.5MG IV ORDERED, WILL REASSESS.
[2016-09-24] MEDS ORDERED: LORAZEPAM INJ 2 MG/ML VIAL IV ONE (17:30)
[2016-09-24] MEDS: ENOXAPARIN SODIUM 40 MG/0.4 ML DISP.SYRIN SQ SCH (17:31)
--- NOTE | 2016-09-24 18:22 | NUR ---
MS RN CLOSING NOTES PATIENT IN BED, APPEARS CALM AND RELAX. NO C/O PAIN OR ANY DISCOMFORT. TURN AND REPOSITION IN BED. PATIENT IS SEEN BY PT TODAY, PARTICIPATED WELL. STILL REFUSING TO EAT, OFFERS PO FLUIDS MULTIPLE TIMES BUT REFUSED. IVF D5 1/2 NS INFUSING AT 100ML/HR, TOLERATING WELL. VOIDED WITHOUT DIFFICULTY, KEPT CLEAN, DRY AND COMFORTABLE. 1:1 SITTER AT THE BED SIDE. CALL LIGHT WITHIN REACH. LAB IN AM ORDERED. WILL ENDORSE TO FUR CLEANER RN FOR CONTINUITY OF CARE.
--- NOTE | 2016-09-24 19:30 | NUR ---
MS RN INITIAL NOTES: RECEIVED REPORT FROM TRACI GONZALES. PT ON BED, SLEEPING, APPEARS CALM AND COMFORTABLE, NO FACIAL GRIMACE NOTED AT THIS TIME, RESPIRATION EVEN AND UNLABORED. PT JUST RECEIVED ATIVAN IV, PT HAS ON AND OFF AGITATION AND RESTLESSNESS. PER REPORT PT REFUSING MEDICATION, ABLE TO SPIT, KICK AND BITE STAFF. PT HAS SITTER AT BED SIDE. IV ACCESS PATENT AND FLUSHING WELL, INFUSING WITH D5 1/2 NS AT 100ML/HR. SAFETY PRECAUTIONS FOR FALL INITIATED CALL LIGHT IN REACH, WILL CONTINUE TO MONITOR
[2016-09-24 20:00] VITALS: BP 106/52
[2016-09-24] MEDS: QUETIAPINE FUMARATE 25 MG TABLET PO SCH (21:55)
[2016-09-24] MEDS: SIMVASTATIN 20 MG TABLET PO SCH (22:07)
--- NOTE | 2016-09-24 22:07 | NUR ---
MS RN NOTES: PT WOKE UP, STATED HE'S HUNGRY, MEDICATION ADMINISTERED TO THE PT, CRUSHED GIVEN WITH APPLE SAUCE AND THICKENER, PT ABLE TO TAKE MEDICATION COMPLETELY, CHILD HEALTH ASSOCIATE KAMERON WITNESS AT BED SIDE, NO S/S OF ASPIRATION NOTED, SUCTION SET UP SECURED
[2016-09-24] MEDS: VANCOMYCIN 0.75 GM in IV D5W 250 ML IV SCH (22:08)
[2016-09-25] MEDS: METRONIDAZOLE 500 MG TABLET PO SCH (05:41)
[2016-09-25] MEDS: IV D5/0.45 NACL 1,000 ML IV PRN (05:41)
[2016-09-25] MEDS: Z GUARD REMEDY 2 OZ OINT TP PRN (05:55)
[2016-09-25 06:44] LABS: BASOPHILS % (AUTO) 0.4 % (0.0-2.0); EOSINOPHILS # (AUTO) 0.1 /CMM (0.0-0.7); EOSINOPHILS % (AUTO) 1.4 % (0.0-6.0); HEMATOCRIT 26 % (39-51); HEMOGLOBIN 8.4 g/dL (13.5-17.5); LYMPHOCYTES # (AUTO) 1.5 /CMM (0.8-4.8); LYMPHOCYTES % (AUTO) 18.4 % (20.0-44.0); MEAN CORPUSCULAR HEMOGLOBIN 26 PG (26.0-33.0); MEAN CORPUSCULAR HGB CONC 33 g/dl (31.0-36.0); MEAN CORPUSCULAR VOLUME 79 fL (80-96); MONOCYTES # (AUTO) 0.6 /CMM (0.1-1.30); MONOCYTES % (AUTO) 7.5 % (2.0-12.0); NEUTROPHILS # (AUTO) 5.9 /CMM (1.8-8.9); NEUTROPHILS % (AUTO) 72.3 % (43.0-81.0); PLATELET COUNT (AUTO) 205 /CMM (150-450); RDW COEFFICIENT OF VARIATION 16.9 (11.5-15.0); RED BLOOD CELL COUNT(AUTO) 3.28 MIL/uL (4.5-6.0); WHITE BLOOD COUNT (AUTO) 8.1 K/uL (4.3-11.0)
[2016-09-25 06:47] LABS: CALCIUM, SERUM 8.5 mg/dL (8.5-10.1); CREATININE 0.9 mg/dL (0.6-1.3); MAGNESIUM 1.5 mg/dL (1.8-2.4); PHOSPHORUS 2.3 mg/dL (2.5-4.9); POTASSIUM 3.5 mmol/L (3.5-5.1)
--- NOTE | 2016-09-25 07:01 | NUR ---
MS RN CLOSING NOTES: PT ON BED, AWAKE, APPEARS CALM AND COMFORTABLE, REMAINS A/O X1, CONFUSED WITH IMPAIRED JUDGEMENT. ON ROOM AIR. NO SOB NOTED. IV ACCESS REMAINS PATENT AND FLUSHING WELL, INFUSING WITH D5 1/2NS AT 100ML/HR. SITTER AT BED SIDE. VS REMAINS STABLE, NEEDS ATTENDED. SAFETY PRECAUTIONS FOR FALL REMAINS ENGAGED, CALL LIGHT IN REACH, WILL ENDORSE TO DAY RN FOR ALICIA.
--- NOTE | 2016-09-25 07:40 | NUR ---
MS RN OPENING NOTE PATIENT IS ASLEEP IN BED LOCKED IN LOWEST POSITION WITH ALL SIDERAIL UP FOR SEIZURE PRECAUTION. NO PAIN AT THIS TIME. NO SOB OR DISTRESS NOTED. ALL NURSING CARE WILL BE ATTENDED TO. SAFETY MEASURES IMPLEMENTED. CALL LIGHT WITHIN REACH. IV INTACT AND PATENT. SITTER AT BEDSIDE. WILL CONTINUE TO MONITOR
[2016-09-25 08:00] VITALS: BP_SYST 123; BP_DIAS 55; BP_DIAS 65
[2016-09-25] MEDS: PANTOPRAZOLE 40 MG VIAL IV SCH (08:07)
[2016-09-25] MEDS: VALPROIC ACID 250 MG/5 ML UDC PO SCH (08:07)
[2016-09-25] MEDS: LACTOBACILLUS RHAMNOSUS GG 1 EACH CAP.SPRINK PO SCH ×2 (08:07→16:15)
[2016-09-25] MEDS: ASPIRIN 81 MG TAB.CHEW PO SCH (08:07)
[2016-09-25] MEDS: BOOST PLUS FOOD-CHOCLATE 237 ML BOX PO SCH ×2 (08:08→11:37)
[2016-09-25] MEDS: Z GUARD REMEDY 2 OZ OINT TP SCH ×2 (08:08→16:17)
[2016-09-25] MEDS ORDERED: Magnesium 1GM/D5W 100ML PREMIX 100 ML IV SCH ×2 (10:30→12:30)
[2016-09-25] MEDS ORDERED: SECONDARY IV SET 1 EA INFUS.SET MC ONE (10:36)
--- NOTE | 2016-09-25 11:25 | NUR ---
MS RN NOTE PATIENT IS RECEIVING MAGNESIUM. SPOKE WITH PHARMACY SECOND BAG WILL BE HUNG AT 12:30 DUE TO VANCOMYCIN RUNNING AT THIS TIME.
[2016-09-25] MEDS: VANCOMYCIN 0.75 GM in IV D5W 250 ML IV SCH (11:32)
[2016-09-25] MEDS ORDERED: K PHOS NEUTRAL 250 MG TABLET PO ONE (14:30)
[2016-09-25] MEDS ORDERED: LEVO750T21 PO (14:36)
[2016-09-25] MEDS ORDERED: CEFT1PIG2 IV (14:36)
[2016-09-25 15:30] VITALS: BP 134/61
[2016-09-25] MEDS: ENOXAPARIN SODIUM 40 MG/0.4 ML DISP.SYRIN SQ SCH (16:17)
--- NOTE | 2016-09-25 17:16 | NUR ---
MS VENEER CLIPPER HELPER NOTE PATIENT IS AWAKE ALERT AND ORIENTED x1. CONFUSED, NEEDS TO BE RE-DIRECTED. NO PAIN AT THIS TIME. NO SOB OR DISTRESS NOTED. ALL DUE MEDICATIONS GIVEN ORDERED. ALL NURSING CARE NEEDS ATTENDED TO PROMPTLY. SAFETY MEASURES IMPLEMENTED. CALL LIGHT WITHIN REACH. IV TAKEN OUT. SKI N INTACT. PATIENT HAS LEFT UPPER ARM MIDLINE IN PLACE. PATIENT BELONGINGS ACCOUNTED FOR SENT WITH EMT TO FACILITY. DISCHARGE INSTRUCTIONS GIVEN TO RN FINGERNAIL FORMER, [facility] AT [facility] PATIENT LEFT [facility] WITH EMT VIA AMBULANCE. ANA LAURA PRITCHETT, SON WAS NOTIFIED OF DISCHARGE AND WILL FOLLOW UP WITH FAMILY MEMBER AT SNF.
[2016-09-26] MEDS ORDERED: LEVOFLOXACIN 750 MG /D5W 150ML 750 MG in PREMIX 1 EA IV SCH (16:00)
== END 2016-09-25 17:25 | DRG 871 ==
LOC: ER 09:44 → TELE 11:31 → MED 09-21 09:01
PROC: 05HB33Z Insertion of Infusion Device into Right Basilic Vein, Percutaneous Approach (ICD-10-PCS; principal; 2016-09-25)
PROC: B54MZZA Ultrasonography of Right Upper Extremity Veins, Guidance (ICD-10-PCS; 2016-09-25)
DX: A41.9 Sepsis, unspecified organism (principal); J69.0 Pneumonitis due to inhalation of food and vomit; I21.4 Non-ST elevation (NSTEMI) myocardial infarction; G93.40 Encephalopathy, unspecified; N17.0 Acute kidney failure with tubular necrosis; Z73.6 Limitation of activities due to disability; I10 Essential (primary) hypertension; D50.9 Iron deficiency anemia, unspecified; M81.0 Age-related osteoporosis without current pathological fracture; J44.9 Chronic obstructive pulmonary disease, unspecified; F03.90 Unspecified dementia, unspecified severity, without behavioral disturbance, psychotic disturbance, mood disturbance, and anxiety; D63.8 Anemia in other chronic diseases classified elsewhere; F29 Unspecified psychosis not due to a substance or known physiological condition; J20.8 Acute bronchitis due to other specified organisms; B95.4 Other streptococcus as the cause of diseases classified elsewhere; F10.21 Alcohol dependence, in remission; R65.20 Severe sepsis without septic shock
CPT/HCPCS: 36415; 71010-TC; 80048-TC; 80061-TC; 80074; 80076-TC; 80202-TC; 81000-TC; 82728-TC; 83540-TC; 83605-TC; 83735-TC; 84100-TC; 84439-TC; 84443-TC; 84484-TC; 85025-TC; 85730-TC; 87040-TC; 87081-TC; 87086-TC; 87186-TC; 87400; 92611-TC; 93307-TC; 94799-TC; 97001-TC; 97116-TC; 97530-TC; A4216; A4606; C9113; J1650; J1956; J2060; J2543; J3370; J3475; J3490; J7030; J7042; J7060; Z7610

== ENCOUNTER 2016-09-30 14:46 | Inpatient (IN) | payer MEDICARE, MEDICAID ==
[~2016-09-30] VITALS: Ht 165.1 cm; Wt 70.3 kg
[~2016-09-30 14:46] MED LIST: CEFT1PIG2 IV; LEVO750T21 PO; LIDOCAINE 1% INJ 50 ML MDV IJ ONE; LORA-258 PO; QUET25TA PO; TEMA7.5C PO; VALP250C3 PO
--- NOTE | 2016-09-30 14:55 | NUR ---
PT BIB PA C/O WEAKNESS AFTER 3 DAYS OF NO PO INTAKE AND "THEY WANT HIM TO GET A GTUBE" PER EMS. PER REPORT, PT HAS BEEN RECEIVING IVF AT FACILITY. MIDLINE PRESENT LOAN CLERK. RESP EVEN UNLABORED. SKIN WARM NONDIAPHORETIC; TENTING. APPEARS DEHYDRATED. IN ER BED 09 ON MONITOR.
[2016-09-30] MEDS ORDERED: IV SET PRIMARY 1 EA INFUS.SET MC ONE (15:11)
[2016-09-30] MEDS ORDERED: IV NS 0.9% 1,000 ML ONE (15:11)
[2016-09-30] MEDS ORDERED: BENZ-13 PO (15:27)
[2016-09-30] MEDS ORDERED: [UNRECOGNIZED DRUG - CODE] IV (15:27)
[2016-09-30] MEDS ORDERED: CEFT1VIA15 IV (15:27)
[2016-09-30] MEDS ORDERED: SIMV40TA2 PO (15:27)
[2016-09-30] MEDS ORDERED: LACT-215 PO (15:27)
[2016-09-30] MEDS ORDERED: SACC250C6 PO (15:27)
[2016-09-30] MEDS ORDERED: PANT40TA2 PO (15:27)
[2016-09-30] MEDS ORDERED: ASPI81TA2 PO (15:27)
[2016-09-30] MEDS ORDERED: LEVO750T21 PO (15:27)
[2016-09-30] MEDS ORDERED: ENOX40DI SQ (15:27)
[2016-09-30] MEDS ORDERED: ACET-868 PO (15:28)
[2016-09-30 15:29] LABS: BASOPHILS % (AUTO) 0.3 % (0.0-2.0); EOSINOPHILS % (AUTO) 0.4 % (0.0-6.0); HEMATOCRIT 34 % (39-51); HEMOGLOBIN 11.4 g/dL (13.5-17.5); LYMPHOCYTES # (AUTO) 1.7 /CMM (0.8-4.8); LYMPHOCYTES % (AUTO) 14.2 % (20.0-44.0); MEAN CORPUSCULAR HEMOGLOBIN 26 PG (26.0-33.0); MEAN CORPUSCULAR HGB CONC 33 g/dl (31.0-36.0); MEAN CORPUSCULAR VOLUME 80 fL (80-96); MONOCYTES # (AUTO) 0.7 /CMM (0.1-1.30); MONOCYTES % (AUTO) 6.3 % (2.0-12.0); NEUTROPHILS # (AUTO) 9.5 /CMM (1.8-8.9); NEUTROPHILS % (AUTO) 78.8 % (43.0-81.0); PLATELET COUNT (AUTO) 257 /CMM (150-450); RDW COEFFICIENT OF VARIATION 18.3 (11.5-15.0); RED BLOOD CELL COUNT(AUTO) 4.32 MIL/uL (4.5-6.0); WHITE BLOOD COUNT (AUTO) 11.9 K/uL (4.3-11.0)
[2016-09-30] MEDS ORDERED: IV NS 0.9% 1,000 ML BAG IV ONE (15:30)
[2016-09-30 15:42] LABS: CALCIUM, SERUM 9.3 mg/dL (8.5-10.1); CREATININE 0.9 mg/dL (0.6-1.3); POTASSIUM 4.2 mmol/L (3.5-5.1)
[2016-09-30 15:49] LABS: ALBUMIN 1.7 g/dL (3.4-5.0); BILIRUBIN,DIRECT 0.3 mg/dL (0.0-0.2); BILIRUBIN,TOTAL 0.5 mg/dL (0.2-1.0); TOTAL PROTEIN, SERUM 5.9 g/dL (6.4-8.2)
[2016-09-30 15:50] LABS: TROPONIN I 0.143 ng/mL (0.00-0.056)
[2016-09-30] MEDS ORDERED: ASPIRIN 300 MG/SUPP.RECT RC ONE ×2 (16:30→16:43)
--- NOTE | 2016-09-30 17:07 | NUR ---
TELE [id number], JERRELL
[2016-09-30 17:25] LABS: APPEARANCE,URINE Clear (CLEAR); BILIRUBIN,URINE Negative (NEGATIVE); BLOOD, URINE Large Ery/uL (NEGATIVE); COLOR,URINE Yellow (YELLOW); KETONES,URINE Trace (NEGATIVE); LEUKOCYTE ESTERASE ,URINE Negative (NEGATIVE); NITRITE, URINE Negative (NEGATIVE); PH,URINE 6.5 (5.0-8.0); PROTEIN,URINE 30 mg/dl (NEGATIVE); UGLUCOSE Negative (NEGATIVE)
[2016-09-30] MEDS ORDERED: BENZONATATE 100 MG CAPSULE PO PRN (17:30)
[2016-09-30] MEDS ORDERED: ZOLPIDEM TARTRATE 5 MG TABLET PO PRN (17:30)
[2016-09-30] MEDS ORDERED: HYDROCODONE/APAP 5/325MG 1 EACH TABLET PO PRN (17:30)
[2016-09-30] MEDS ORDERED: MAGNESIUM HYDROXIDE 30 ML UDC PO PRN (17:30)
[2016-09-30] MEDS ORDERED: ONDANSETRON HCL/PF 4 MG/2 ML VIAL IVP PRN (17:30)
[2016-09-30] MEDS ORDERED: ACETAMINOPHEN 325 MG TABLET PO PRN (17:30)
[2016-09-30] MEDS ORDERED: MAG HYDROX/AL HYDROX/SIMETH 30 ML UDC PO PRN (17:30)
--- NOTE | 2016-09-30 17:31 | NUR ---
REPORT GIVEN TO DENNIS GONZALES FOR ADMISSION
[2016-09-30 17:52] LABS: ADD URINE CULTURE NO; BACTERIA,URINE Few /HPF (None Seen); SQUAMOUS EPITHELIAL CELL,UR Rare /HPF (None Seen); WBC,URINE 0-2 /HPF (0-3)
[2016-09-30 18:00] VITALS: BP 147/66
[2016-09-30] MEDS ORDERED: IV NS 0.9% 1,000 ML IV SCH (18:00)
[2016-09-30] MEDS ORDERED: ACIDOPHILUS/BULGARICUS 1 EACH TAB.CHEW PO SCH (18:00)
[2016-09-30] MEDS ORDERED: ACIDOPHILUS/BULGARICUS 1 EACH GRAN.PACK PO SCH (18:00)
--- NOTE | 2016-09-30 18:00 | NUR ---
PT TRANSPORTED TO [facility] IN STABLE CONDITION VIA ACLS PROTOCOL
--- NOTE | 2016-09-30 18:00 | NUR ---
BRICK GRADERCURRICULUM ASSISTANT PRINCIPAL NOTE PATIENT IS ALERT AND ORIENTED x1. CONFUSED. RIGHT UPPER ARM MIDLINE INTACT AND PATENT NO REDNESS OR SWELLING PRESENT. VITAL SIGNS STABLE. BED ALARM. PATIENT IS FULL CODE. CALL LIGHT WITHIN REACH. SAFETY MEASURES IMPLEMENTED. ADMITTED FOR POOR PO INTAKE FOR MORE THAN 3 DAYS. DEHYDRATION. ON WAREHOUSE ENGINEER TELE-NORMAL SINUS RHYTHM AT 96. ON ROOM AIR AT 96%. NO PAIN AT THIS TIME. NO SOB OR DISTRESS NOTED. PATIENT UNABLE TO COMMUNICATE NEEDS. HAS RIGHT HEEL REDNESS. INCONTINENT. LABS IN AM. WILL ENDORSE TO JEWELRY DRILLING MACHINE OPERATOR NURSE FOR ALICIA.
--- NOTE | 2016-09-30 18:52 | NUR ---
MAIL ORDER SORTER CLOSING NOTE PATIENT IS ALERT AND ORIENTED x1. CONFUSED. PATIENT IS IN BED LOCKED IN LOWEST POSITION WITH SIDERAILS UP x2. SAFETY MEASURES IMPLEMENTED. CALL LIGHT WITHIN REACH. BED ALARM IN PLACE. BRANDON MIDLINE INTACT AND PATENT. NO REDNESS OR SWELLING NOTED. ON ROOM AIR. NO PAIN AT THIS TIME. NO SOB OR DISTRESS NOTED. ORDER FOR NGT PLACEMENT. WILL ENDORSE TO TRACK RIDER NURSE FOR ALICIA AND ADMISSION
--- NOTE | 2016-09-30 19:21 | NUR ---
INSURANCE CLAIMS SPECIALIST NOTES RECEIVED PT IN BED. ASLEEP AT THIS TIME. EASILY AROUSED, VERBALLY RESPONSIVE. NO ACUTE DISTRESS, NO SOB NOTED. RESPIRATION IS EVEN AND UNLABORED. BRANDON MIDLINE INTACT AND PATENT, IVF INFUSING WELL. NO S/S OF INFECTION NOTED. ON ASPIRATION PRECAUTION. ALL NEEDS ATTENDED AND MET. KEPT COMFORTABLE. NO S/S OF PAIN OR DISCOMFORT AT THIS TIME. CALL LIGHT WITHIN REACH. WILL CONTINUE TO MONITOR.
[2016-09-30] MEDS ORDERED: IV SET PRIMARY PUMP SET 1 EA INFUS.SET MC ONE (19:37)
[2016-09-30] MEDS: IV D5/0.45 NACL 1,000 ML IV SCH (19:43)
--- NOTE | 2016-09-30 19:58 | NUR ---
CLARIFIED DIET ORDER WITH DR. MERAZ D/T NGT INSERTION ORDER, PER MD TO KEEP PT ON CARDIAC DIET.
[2016-09-30 20:00] VITALS: BP 145/54
[2016-09-30] MEDS: ALBUTEROL FS 2.5 MG/3 ML VIAL.NEB NEB SCH (20:28)
[2016-09-30] MEDS: IPRATROPIUM NEB FS 0.5 MG/2.5 ML AMPUL.NEB NEB SCH (20:28)
[2016-09-30] MEDS ORDERED: VALPROIC ACID 250 MG/5 ML UDC PO SCH (21:00)
[2016-09-30] MEDS ORDERED: QUETIAPINE FUMARATE 25 MG TABLET PO SCH (22:00)
[2016-09-30] MEDS ORDERED: TEMAZEPAM 7.5 MG CAPSULE PO SCH (22:00)
[2016-09-30] MEDS ORDERED: SIMVASTATIN 40 MG TABLET PO SCH (22:00)
--- NOTE | 2016-09-30 22:00 | NUR ---
PT ABLE TO SWALLOW MEDICATIONS WITH APPLE SAUCE SLOWLY. PT HOB ELEVATED @ 90 DEGREES. ASPIRATION AND SAFETY PRECAUTION OBSERVED. WILL CONT TO MONITOR
--- NOTE | 2016-09-30 22:30 | NUR ---
ATTEMPTED TO INSERT NGT X 2 , WITH CHARGE NURSE AT BEDSIDE, UNSUCCESSFUL.
[2016-10-01] VITALS (7 sets, daily range): BP systolic 130–154; BP diastolic 56–76
--- NOTE | 2016-10-01 00:50 | NUR ---
PT IS STABLE AT THIS TIME. NO ACUTE DISTRESS, NO SOB. ENDORSED PT TO CHRISTIAN JARRETT REPORT GIVEN.
[2016-10-01] MEDS: ALBUTEROL FS 2.5 MG/3 ML VIAL.NEB NEB SCH ×4 (00:55→20:05)
[2016-10-01] MEDS: IPRATROPIUM NEB FS 0.5 MG/2.5 ML AMPUL.NEB NEB SCH ×4 (00:55→20:05)
--- NOTE | 2016-10-01 01:30 | NUR ---
INSERTED NG TUBE TO LEFT NARE, PROCEDURE TOLERATED WELL, ON AUSCULTATION, POSITIVE PLACEMENT, WILL ORDER XRAY FOR PLACEMENT. WILL CONTINUE TO MONITOR.
--- NOTE | 2016-10-01 02:04 | NUR ---
CHEST XRAY PERFORMED AT THE BEDSIDE, AWAITING RESULT
--- NOTE | 2016-10-01 02:15 | NUR ---
PATIENT IS RESTLESS, TRYING TO PULL OUT NG TUBE. PATIENT IS DISTRACTED AND HID TUBES. WILL CONTINUE TO MONITOR.
--- NOTE | 2016-10-01 05:50 | NUR ---
NEW ORDER OF BILATERAL MITTEN RESTRAINTS SECONDARY TO PATIENT TRYING TO PULL OUT IV LINE AND NG TUBE, KEPT SAFE, WILL CONTINUE TO MONITOR.
--- NOTE | 2016-10-01 06:41 | NUR ---
PATIENT IN BED, ALERT AND AWAKE, CONFUSED, RESTLESS, SLEPT FOR [address] TUBE IN PL[address], BILATERAL MITTENS IN PLACE. NEEDS ATTENDED, CALL LIGHT WITHIN REACH.
[2016-10-01 06:47] LABS: CALCIUM, SERUM 9.3 mg/dL (8.5-10.1); CREATININE 0.9 mg/dL (0.6-1.3); MAGNESIUM 1.9 mg/dL (1.8-2.4); PHOSPHORUS 3.4 mg/dL (2.5-4.9); POTASSIUM 4.3 mmol/L (3.5-5.1)
--- NOTE | 2016-10-01 06:49 | NUR ---
NOTIFIED SON, ANA LAURA PRITCHETT OF NG TUBE INSERTION AND BILATERAL MITTENS. SON IN AGREEMENT WITH TX PLAN
[2016-10-01 06:53] LABS: THYROID STIMULATING HORMONE 2.103 uIU/mL (0.358-3.74)
[2016-10-01] MEDS ORDERED: ZOLPIDEM TARTRATE 5 MG TABLET GT PRN (07:38)
[2016-10-01] MEDS ORDERED: SIMVASTATIN 40 MG TABLET GT SCH (07:40)
[2016-10-01] MEDS ORDERED: QUETIAPINE FUMARATE 25 MG TABLET GT SCH (07:40)
[2016-10-01] MEDS ORDERED: MAG HYDROX/AL HYDROX/SIMETH 30 ML UDC GT PRN (07:41)
[2016-10-01] MEDS ORDERED: MAGNESIUM HYDROXIDE 30 ML UDC GT PRN (07:41)
[2016-10-01] MEDS: BOOST PLUS FOOD-VANILLA 237 ML BOX GT SCH ×2 (08:00→17:00)
[2016-10-01] MEDS ORDERED: BOOST PLUS FOOD-VANILLA 237 ML BOX PO SCH (08:00)
--- NOTE | 2016-10-01 08:00 | NUR ---
MS RN RECEIVED ON BED, AWAKE,CONFUSE, NOT IN ANY FORM OF DISTRESS, NGT INTACT AND IN PLACE,NO RESIDUAL NOTED, MITTENS ON FOR SAFETY, WILL MONITOR PATIENT'S CONDITION.ALL NEEDS ATTENDED.
[2016-10-01 08:54] LABS: BASOPHILS # (AUTO) 0.1 /CMM (0.0-0.2); BASOPHILS % (AUTO) 0.3 % (0.0-2.0); EOSINOPHILS % (AUTO) 0.2 % (0.0-6.0); HEMATOCRIT 31 % (39-51); HEMOGLOBIN 10.1 g/dL (13.5-17.5); LYMPHOCYTES # (AUTO) 1.7 /CMM (0.8-4.8); LYMPHOCYTES % (AUTO) 11.5 % (20.0-44.0); MEAN CORPUSCULAR HEMOGLOBIN 26 PG (26.0-33.0); MEAN CORPUSCULAR HGB CONC 32 g/dl (31.0-36.0); MEAN CORPUSCULAR VOLUME 80 fL (80-96); MONOCYTES # (AUTO) 1.1 /CMM (0.1-1.30); MONOCYTES % (AUTO) 7.4 % (2.0-12.0); NEUTROPHILS # (AUTO) 11.8 /CMM (1.8-8.9); NEUTROPHILS % (AUTO) 80.6 % (43.0-81.0); PLATELET COUNT (AUTO) 234 /CMM (150-450); RDW COEFFICIENT OF VARIATION 20.2 (11.5-15.0); RED BLOOD CELL COUNT(AUTO) 3.91 MIL/uL (4.5-6.0); WHITE BLOOD COUNT (AUTO) 14.6 K/uL (4.3-11.0)
--- NOTE | 2016-10-01 09:00 | NUR ---
MS RN DUE MEDS GIVEN VIA GTUBE, PATIENT CAN NOT EAT AT THIS TIME,LETHARGIC.
[2016-10-01] MEDS: ASPIRIN 81 MG TAB.CHEW GT SCH (10:09)
[2016-10-01] MEDS: VALPROIC ACID 250 MG/5 ML UDC GT SCH ×2 (10:09→20:32)
[2016-10-01] MEDS: ACIDOPHILUS/BULGARICUS 1 EACH TAB.CHEW GT SCH ×2 (10:09→17:00)
[2016-10-01] MEDS: PANTOPRAZOLE 40 MG TABLET.DR PO SCH (10:09)
[2016-10-01] MEDS: IV D5/0.45 NACL 1,000 ML IV SCH ×2 (10:15→21:36)
[2016-10-01] MEDS: ENOXAPARIN SODIUM 40 MG/0.4 ML DISP.SYRIN SQ SCH (10:16)
--- NOTE | 2016-10-01 11:00 | NUR ---
MS RN WAS SEEN BY DR. ESTHER Valencia/ ORDERS MADE AND CARRIED OUT.
--- NOTE | 2016-10-01 11:37 | NUR ---
WOUND CARE CONSULT: PATIENT SEEN AND SKIN ASSESSMENT DONE. PATIENT WITH NG TUBE, IMMOBILE, INCONTINENT, EDUARD 10, NURSING STAFF ORDERED NIKKI ISOFLEX VANESSA BED AND WILL BE PLACED WHEN AVAILABLE IN THE UNIT. SEE TODAY'S SKIN ASSESSMENT IN PCS ALONG WITH RECOMMENDATIONS. RECOMMEND MOISTURE AND SKIN PROTECTION, PRESSURE PREVENTION MEASURES,TURN AND REPOSITION EVERY 2 HRS PATIENT CONDITION PERMITS,OFFLOAD BOTH HEELS, ORDERED. ALL DISCUSSED WITH NURSING STAFF. MD IN AGREEMENT WITH PLAN OF CARE. Addendum: 10/01/16 at 1140 by SAMM TA WNDNU Amended: Links added.
[2016-10-01] MEDS ORDERED: SECONDARY IV SET 1 EA INFUS.SET MC ONE ×2 (13:18→18:47)
[2016-10-01] MEDS: PIPERACILLIN /TAZOBACTAM 3.375 G in IV D5W 50 ML IV SCH ×2 (14:42→18:48)
--- NOTE | 2016-10-01 18:00 | NUR ---
MS RN PATIENT REMOVED NGT 3 TIMES, REINSERTED, LAST ONE CANNOT GET IN,PATIENT HAS NO SWALLOW REFLEX, TEXT DR. SMITH,AWAITING FOR ANSWER.
[2016-10-01] MEDS: ALBUMIN 25% 25 GM in PREMIX 1 EA IV SCH ×2 (18:48→21:36)
--- NOTE | 2016-10-01 19:00 | NUR ---
MS RN OPENING NOTES RECEIVED PATIENT IN BED IN STABLE CONDITION, NO S/S OF DISTRESS, IV SITE INTACT WITH S/S OF INFILTRATION. NO S/S OF DISTRESS NO SOB, NO CHEST PAIN. NO COMPLAINS OF PAIN, SAFE FREE ENVIRONMENT PROVIDED FREE OF CLUTTERS, WILL CONTINUE TO MONITOR, ON LOW BED TO ENSURE SAFETY, CALL LIGHT WITHIN REACH. NO NGT IN PLACE. ONGOING IV HYDRATION NOTED.
--- NOTE | 2016-10-01 19:25 | NUR ---
DAY SHIFT RN SPOKE TO DR. SMITH REGARDING NGT TUBE REMOVED 3 TIMES AND THAT SHE CANT INSERT IT BECAUSE NO SWALLOWING REFLEX AND KEPT ON GOING TO THE LUNGS, WILL HAVE PEG ON TUESDAY ORDERED D5NS ON GOING AT 75 CC/HR. Addendum: 10/02/16 at 0239 by ANTHONY THOMPSON RN MD ORDER NO NGT INSERTION FOR NOW.
[2016-10-01] MEDS: TEMAZEPAM 7.5 MG CAPSULE GT SCH (21:34)
[2016-10-02] MEDS: PIPERACILLIN /TAZOBACTAM 3.375 G in IV D5W 50 ML IV SCH ×4 (00:30→16:52)
[2016-10-02] MEDS: ALBUTEROL FS 2.5 MG/3 ML VIAL.NEB NEB SCH ×3 (02:14→13:49)
[2016-10-02] MEDS: IPRATROPIUM NEB FS 0.5 MG/2.5 ML AMPUL.NEB NEB SCH ×3 (02:15→20:45)
[2016-10-02] MEDS: ALBUMIN 25% 25 GM in PREMIX 1 EA IV SCH ×2 (04:33→11:26)
--- NOTE | 2016-10-02 06:45 | NUR ---
MS RN CLOSING NOTES PATIENT COMFORTABLY IN BED ASLEEP AND EASILY AWAKEN, ON ATB WITH NO A/R NOTED. DUE MEDS WAS GIVEN. HEAD OF BED ELEVATED FOR BETTER LUNG EXPANSION AND BETTER LUNG CIRCULATION, ON 2LPM VIA NC 02 SAT SP02 98%. ALERT AND VERBALLY RESPONSIVE DENIES PAIN OR DISTRESS, RESPONDS APPROPRIATELY TO VERBAL STIMULI, RESPIRATIONS EVEN UNLABORED BREATH SOUNDS. VS STABLE, APICAL PULSE REGULAR; GOOD SKIN CARE PROVIDED. IV SITE INTACT WITH NO S/S OF INFILTRATION NOTED. PATIENT IN STABLE CONDITION WITH NO SOB NO S/S OF DISTRESS NO NAUSEA AND VOMITING NO HEADACHE NO PAIN, NO COMPLAIN OF CHEST PAIN SAFETY ENVIRONMENT PROVIDED. FREE OF CLUTTERS, NEEDS ATTENDED AND ANTICIPATED, NURSING CARE RENDERED, KEPT CLEAN AND DRY AND COMFORTABLE. ALL DUE MEDS WAS GIVEN. REPOSITIONED Q2H FOR COMFORT AND SKIN MGT. CALL LIGHT IN REACH, BED LOWERED AND LOCKED, SR X2 FOR SAFETY AND WILL ENDORSE CONTINUE PLAN OF CARE
[2016-10-02 07:02] LABS: BASOPHILS % (AUTO) 0.1 % (0.0-2.0); EOSINOPHILS % (AUTO) 0.1 % (0.0-6.0); HEMATOCRIT 26 % (39-51); HEMOGLOBIN 8.3 g/dL (13.5-17.5); LYMPHOCYTES # (AUTO) 1.4 /CMM (0.8-4.8); LYMPHOCYTES % (AUTO) 7.4 % (20.0-44.0); MEAN CORPUSCULAR HEMOGLOBIN 26 PG (26.0-33.0); MEAN CORPUSCULAR HGB CONC 32 g/dl (31.0-36.0); MEAN CORPUSCULAR VOLUME 80 fL (80-96); MONOCYTES # (AUTO) 1.1 /CMM (0.1-1.30); MONOCYTES % (AUTO) 5.7 % (2.0-12.0); NEUTROPHILS # (AUTO) 16.8 /CMM (1.8-8.9); NEUTROPHILS % (AUTO) 86.7 % (43.0-81.0); PLATELET COUNT (AUTO) 253 /CMM (150-450); RDW COEFFICIENT OF VARIATION 19.6 (11.5-15.0); RED BLOOD CELL COUNT(AUTO) 3.21 MIL/uL (4.5-6.0); WHITE BLOOD COUNT (AUTO) 19.4 K/uL (4.3-11.0)
[2016-10-02 07:16] LABS: INR 1.21 (0.87-1.13); PROTHROMBIN TIME 13.1 SECS (9.5-12.7)
[2016-10-02] MEDS: PANTOPRAZOLE 40 MG TABLET.DR PO SCH (07:30)
[2016-10-02 07:40] LABS: ALBUMIN 2.7 g/dL (3.4-5.0); BILIRUBIN,TOTAL 1.1 mg/dL (0.2-1.0); CALCIUM, SERUM 9.4 mg/dL (8.5-10.1); CREATININE 1.1 mg/dL (0.6-1.3); POTASSIUM 4.1 mmol/L (3.5-5.1); TOTAL PROTEIN, SERUM 6.1 g/dL (6.4-8.2)
--- NOTE | 2016-10-02 07:48 | NUR ---
RN AM NOTES RECEIVED PATIENT IN BED AWAKE, WITH CONFUSION. BILATERAL HAND MITTENS IN PLACE. RIGHT UPPER ARM MIDLINE IN PLACE, INFUSING WELL. PATIENT TOLERATING INFUSION WELL. ALL NEEDS MET. WILL CONTINUE TO MONITOR
[2016-10-02 08:00] VITALS: BP 165/65
[2016-10-02] MEDS: BOOST PLUS FOOD-VANILLA 237 ML BOX GT SCH ×2 (08:00→16:51)
[2016-10-02] MEDS: ASPIRIN 81 MG TAB.CHEW GT SCH (08:05)
[2016-10-02] MEDS: VALPROIC ACID 250 MG/5 ML UDC GT SCH ×2 (08:06→21:00)
[2016-10-02] MEDS: ACIDOPHILUS/BULGARICUS 1 EACH TAB.CHEW GT SCH ×2 (08:06→16:50)
[2016-10-02] MEDS: ENOXAPARIN SODIUM 40 MG/0.4 ML DISP.SYRIN SQ SCH (08:38)
[2016-10-02] MEDS ORDERED: SECONDARY IV SET 1 EA INFUS.SET MC ONE (14:14)
[2016-10-02 16:00] VITALS: BP 139/70
[2016-10-02] MEDS: GUAIFENESIN 300 MG/15 ML UDC PO SCH ×2 (16:56→21:33)
--- NOTE | 2016-10-02 18:33 | NUR ---
RN PM NOTES PATIENT IN BED RESTING, ABLE TO TOLERATED THIN LIQUIDS, PUDDING, APPLESAUCE AND MEDS PO WITHOUT ASPIRATION. NO SOB, DISTRESS, 4/10 PAIN RESOLVED WITH TYLENOL AND REPOSITIONING. WILL ENDORSE TO NEXT SHIFT.
--- NOTE | 2016-10-02 18:35 | NUR ---
TOLERATING IV FLUIDS WELL. MIDLINE STILL INTACT, IN PLACE AND PATENT. BILATERAL MITTENS STILL IN PLACE. PATIENT WITH INTERMITTENT CONFUSION. CONSENTS FOR POSSIBLE PEG TUBE INSERTION SIGNED. WILL ENDORSE TO NEXT SHIFT.
--- NOTE | 2016-10-02 19:00 | NUR ---
MS RN OPENING NOTES RECEIVED PATIENT IN BED IN STABLE CONDITION, SEMI FOWLERS POSITION, NO S/S OF DISTRESS NO SOB, NO CHEST PAIN. NO COMPLAINS OF PAIN. WITH NO S/S OF DISTRESS NOTED, IV SITE INTACT WITH S/S OF INFILTRATION. HAZARD FREE ENVIRONMENT.ON LOW BED TO ENSURE SAFETY, CALL LIGHT WITHIN REACH. WILL CONTINUE TO MONITOR
[2016-10-02 20:00] VITALS: BP 149/64
[2016-10-02 20:20] VITALS: BP 136/75
[2016-10-02] MEDS: TEMAZEPAM 7.5 MG CAPSULE GT SCH (21:33)
[2016-10-02] MEDS ORDERED: IV D5/ 0.9% NACL 1,000 ML IV PRN (22:30)
[2016-10-03] MEDS ORDERED: IV D5W 0 ML IV ONE (00:12)
[2016-10-03] MEDS ORDERED: IV D5/ 0.9% NACL 1,000 ML IV ONE (00:23)
[2016-10-03] MEDS: PIPERACILLIN /TAZOBACTAM 3.375 G in IV D5W 50 ML IV SCH ×4 (00:28→18:29)
[2016-10-03] MEDS: IPRATROPIUM NEB FS 0.5 MG/2.5 ML AMPUL.NEB NEB SCH ×5 (00:58→20:12)
[2016-10-03] MEDS: ALBUTEROL FS 2.5 MG/3 ML VIAL.NEB NEB SCH ×6 (00:58→20:12)
[2016-10-03] MEDS: GUAIFENESIN 300 MG/15 ML UDC PO SCH ×4 (04:30→22:30)
--- NOTE | 2016-10-03 06:51 | NUR ---
MS RN CLOSING NOTES PATIENT COMFORTABLY ASLEEP AND EASILY AWAKEN, HEAD OF BED FOR BETTER LUNG EXPANSION ON 2L NC 02 SAT 95%, BREATHING TREATMENT TOLERATED WELL. ON ATB NO A/R NOTED, IV HYDRATION ONGOING TOLERATED WELL 40 CC/HR. OFFLOAD AT ALL TIMES. IV SITE NO S/S OF INFILTRATED, PATIENT DENIES PAIN AT THIS TIME. RESPIRATIONS EVEN AND UNLABORED. NO S/S OF ACUTE DISTRESS, NO SOB, NO COUGH, SKIN WARM AND DRY TO TOUCH, AFEBRILE, ALL NURSING CARE NEEDS PROVIDED AND RENDERED, NEEDS ATTENDED AND ANTICIPATED, KEPT CLEAN AND DRY AND COMFORTABLE, BLADDER NOT DISTENDED,TREATMENT ORDERED. GOOD SKIN ARE PROVIDED. ABDOMEN SOFT AND NON TENDER. NO C/O OF CONSTIPATION. ALL DUE MEDS WAS GIVEN TOLERATED. FREQUENT VISUAL CHECK DONE FOR SAFETY EVERY 2 HOURS. SAFE HAZARD FREE ENVIRONMENT PROVIDED. CALL LIGHT WITHIN EASY TO REACH, ON LOW BED AT ALL TIMES TO ENSURE SAFETY, WILL ENDORSE TO THE NEXT SHIFT CONTINUE PLAN OF CARE.
[2016-10-03 07:27] LABS: EOSINOPHILS # (AUTO) 0.1 /CMM (0.0-0.7); EOSINOPHILS % (AUTO) 0.6 % (0.0-6.0); HEMATOCRIT 27 % (39-51); HEMOGLOBIN 8.8 g/dL (13.5-17.5); LYMPHOCYTES # (AUTO) 1.2 /CMM (0.8-4.8); LYMPHOCYTES % (AUTO) 5.2 % (20.0-44.0); MEAN CORPUSCULAR HEMOGLOBIN 26 PG (26.0-33.0); MEAN CORPUSCULAR HGB CONC 32 g/dl (31.0-36.0); MEAN CORPUSCULAR VOLUME 81 fL (80-96); MONOCYTES # (AUTO) 1.4 /CMM (0.1-1.30); MONOCYTES % (AUTO) 6.2 % (2.0-12.0); NEUTROPHILS # (AUTO) 20.4 /CMM (1.8-8.9); PLATELET COUNT (AUTO) 220 /CMM (150-450); RDW COEFFICIENT OF VARIATION 20.4 (11.5-15.0); RED BLOOD CELL COUNT(AUTO) 3.36 MIL/uL (4.5-6.0); WHITE BLOOD COUNT (AUTO) 23.2 K/uL (4.3-11.0)
--- NOTE | 2016-10-03 07:35 | NUR ---
RN AM NOTES PATIENT RECEIVED IN BED, AWAKE, ALERT BUT CONFUSED. BILATERAL MITTENS IN PLACE. SUPPLIES AT BEDSIDE FOR SPUTUM CULTURE. NO SOB, DISTRESS, COMPLAINTS OF PAIN. NO CONGESTION NOTED, SLIGHT WHEEZES UPON INSPIRATION, RESOLVED BY REPOSITIONING. PATIENT STILL ON ISOLATION. WILL CONTINUE TO MONITOR.
[2016-10-03 07:47] LABS: CALCIUM, SERUM 9.6 mg/dL (8.5-10.1); CREATININE 1.4 mg/dL (0.6-1.3); POTASSIUM 4.3 mmol/L (3.5-5.1)
[2016-10-03 08:00] VITALS: BP 126/67
[2016-10-03] MEDS: ASPIRIN 81 MG TAB.CHEW GT SCH (09:58)
[2016-10-03] MEDS: VALPROIC ACID 250 MG/5 ML UDC GT SCH ×2 (09:58→20:57)
[2016-10-03] MEDS: PANTOPRAZOLE 40 MG TABLET.DR PO SCH (09:58)
[2016-10-03] MEDS: ACIDOPHILUS/BULGARICUS 1 EACH TAB.CHEW GT SCH ×2 (09:58→16:47)
[2016-10-03] MEDS: ENOXAPARIN SODIUM 40 MG/0.4 ML DISP.SYRIN SQ SCH (09:59)
[2016-10-03] MEDS: BOOST PLUS FOOD-VANILLA 237 ML BOX GT SCH ×2 (09:59→16:47)
[2016-10-03] MEDS ORDERED: FUROSEMIDE 20 MG/2 ML VIAL IV ONE (10:30)
[2016-10-03 10:39] LABS: APPEARANCE,URINE SL CLOUDY (CLEAR); BILIRUBIN,URINE NEGATIVE (NEGATIVE); BLOOD, URINE 3+ Ery/uL (NEGATIVE); COLOR,URINE YELLOW (YELLOW); KETONES,URINE NEGATIVE (NEGATIVE); LEUKOCYTE ESTERASE ,URINE NEGATIVE (NEGATIVE); NITRITE, URINE NEGATIVE (NEGATIVE); PH,URINE 5.5 (5.0-8.0); PROTEIN,URINE 2+ mg/dl (NEGATIVE); UGLUCOSE NEGATIVE (NEGATIVE)
[2016-10-03 10:59] LABS: ADD URINE CULTURE NO; BACTERIA,URINE Rare /HPF (None Seen); SQUAMOUS EPITHELIAL CELL,UR Few /HPF (None Seen); WBC,URINE 0-2 /HPF (0-3)
[2016-10-03 11:00] LABS: HYALINE CASTS, URINE Rare /LPF (None Seen); URIC ACID CRYSTALS,URINE Moderate /HPF (None Seen)
--- NOTE | 2016-10-03 15:53 | NUR ---
PATIENT REFUSING NG TUBE, GETS INCREASINGLY MORE AGITATED. IVF STILL RUNNING, PATIENT TOLERATING WELL. REFUSING TO TAKE ANYTHING BY MOUTH. WILL CONTINUE TO MONITOR
[2016-10-03 16:00] VITALS: BP 125/60
--- NOTE | 2016-10-03 18:42 | NUR ---
RN PM NOTES PATIENT RESTING IN BED, ASLEEP BUT AROUSABLE, CONFUSED BASELINE. NO FACIAL GRIMACING, SOB OR DISTESS NOTED. NO BLEEDING NOTED. FOR PEG TUBE PLACEMENT TOMORROW. CONSENTS SIGNED AND IN CHART. WILL ENDORSE TO NEXT SHIFT.
--- NOTE | 2016-10-03 19:30 | NUR ---
RN NOTES RECEIVED AWAKE, ORIENTED TO NAME, REORIENTED TO PLACE AND TIME; RESP EVEN AND UNLABORED, NOT IN DISTRESS; DENIED PAIN, SOB, N/V; ON JOSE MITTENS, PX SEEN REACHING FOR PIV DESPITE INSTRUCTION/EDUCATION.
--- NOTE | 2016-10-03 19:30 | NUR ---
RN NOTES RECEIVED PX AWAKE, ORIENTED TO NAME ONLY, REORIENTED TO THE UNIT AND TIME; ON ROOM AIR, PIV ON RT ARM PATENT AND INTACT BUT PX KEPT BENDING RIGHT ARM, INSTRUCTED TO STRAIGTEN IT, WITH SITTER AT BEDSIDE, REPOSITIONED PX, HOB AT 30 ANGLE, DENIED PAIN, SOB, N/V. Addendum: 10/03/16 at 5259 by SANGITA CATES RN WRONG ENTRY, WRONG PATIENT
[2016-10-03 20:00] VITALS: BP 136/71
--- NOTE | 2016-10-03 20:00 | NUR ---
RN NOTES REPORT GIVEN TO ALISSON REDD RN FOR CONTINUITY OF CARE. Addendum: 10/03/16 at 2329 by SANGITA CATES RN WRONG ENTRY, WRONG PATIENT
--- NOTE | 2016-10-03 20:20 | NUR ---
RN NOTES REPORT TO DALTON GONZALES FOR CONTINUITY OF CARE.
[2016-10-03] MEDS: HYDROCODONE/APAP 5/325MG 1 EACH TABLET GT PRN (20:57)
--- NOTE | 2016-10-03 21:00 | NUR ---
MS RN NOTE PATIENT'S OXYGEN SATURATION IS 82% ON 3L NASAL CANNULA. PATIENT IS RESPONSIVE. PLACED PATIENT ON 6L VIA MASK. OXYGEN WENT UP TO 93%. NOTIFIED SANJANA LIM NP. NEW ORDERS RECEIVED AND CARRIED OUT. PATIENT STABLE AT THIS TIME. WILL CONTINUE TO MONITOR.
[2016-10-03 22:00] VITALS: BP 136/71
[2016-10-03] MEDS: TEMAZEPAM 7.5 MG CAPSULE GT SCH (22:00)
[2016-10-03] MEDS ORDERED: CEFEPIME 1 GM in IV D5W 50 ML IV SCH (22:00)
--- NOTE | 2016-10-03 22:45 | NUR ---
MS RN NOTE STAT ABG COMPLETE. SANJANA LIM NP NOTIFIED WITH RESULTS. NO NEW ORDERS AT THIS TIME. WILL CONTINUE TO MONITOR.
[2016-10-03 23:23] LABS: ABG BASE EXCESS -1.7 mmol/L; ABG OXYGEN SATURATION 95.6 % (92.0-98.5); ABG PCO2 29.5 mmHg (35.0-45.0); ABG PH 7.476 (7.350-7.450); ABG PO2 85.5 mmHg (75.0-100.0); ABG TOTAL HEMOGLOBIN 9.2 G/dL (13.5-18.0); AaDO2 194.6 mmHg; COHb 0.6 % (0.5-1.5); MetHb 0.5 % (0.0-1.5); O2Hb 94.5 % (94.0-97.0); SITE, ABG Left Brachial; VENT MODE, BG SIMPLE MASK
[2016-10-04] VITALS (45 sets, daily range): BP systolic 81–150; BP diastolic 35–67
[2016-10-04] MEDS ORDERED: CEFEPIME 1 GM VIAL ONE (00:05)
[2016-10-04] MEDS ORDERED: METRONIDAZOLE 500MG/ NS 100ML 200 ML IV ONE (00:05)
[2016-10-04] MEDS ORDERED: IV D5W 100 ML IV ONE ×2 (00:22→05:39)
[2016-10-04] MEDS ORDERED: SECONDARY IV SET 1 EA INFUS.SET MC ONE ×5 (00:22→11:34)
[2016-10-04] MEDS: METRONIDAZOLE 500MG/ NS 100ML 250 MG in PREMIX 1 EA IV SCH ×5 (00:59→23:03)
[2016-10-04] MEDS: ALBUTEROL FS 2.5 MG/3 ML VIAL.NEB NEB SCH ×4 (01:18→20:28)
[2016-10-04] MEDS: IPRATROPIUM NEB FS 0.5 MG/2.5 ML AMPUL.NEB NEB SCH ×4 (01:19→20:28)
[2016-10-04] MEDS: GUAIFENESIN 300 MG/15 ML UDC PO SCH ×4 (04:30→22:30)
--- NOTE | 2016-10-04 04:30 | NUR ---
MS RN NOTE PATIENT IN RESPIRATORY DISTRESS. OXYGEN 72% ON 6L OXYGEN VIA MASK. HR 177. RAPID RESPONSE INITIATED. PATIENT TRANSFERRED SAFELY TO ICU. REPORT GIVEN TO ED, RN.
[2016-10-04 04:51] LABS: ABG BASE EXCESS -9.8 mmol/L; ABG OXYGEN SATURATION 88.1 % (92.0-98.5); ABG PCO2 28.5 mmHg (35.0-45.0); ABG PH 7.335 (7.350-7.450); ABG TOTAL HEMOGLOBIN 10.3 G/dL (13.5-18.0); AaDO2 620.5 mmHg; COHb 0.7 % (0.5-1.5); MetHb 0.9 % (0.0-1.5); O2Hb 86.7 % (94.0-97.0); SITE, ABG Right Radial; VENT MODE, BG NRB
[2016-10-04] MEDS ORDERED: IV NS 0.9% 1,000 ML ONE (04:51)
[2016-10-04] MEDS ORDERED: IV SET PRIMARY PUMP SET 1 EA INFUS.SET MC ONE ×2 (04:51→05:39)
[2016-10-04] MEDS ORDERED: DILTIAZEM HCL 50 MG IV IV ONE (05:00)
[2016-10-04] MEDS ORDERED: DILTIAZEM HCL IV 125 MG in IV D5W 100 ML IV PRN (05:30)
[2016-10-04] MEDS ORDERED: DILTIAZEM HCL 25 MG IV ONE (05:38)
[2016-10-04] MEDS ORDERED: DILTIAZEM HCL 50 MG IV ONE (05:38)
--- NOTE | 2016-10-04 06:35 | NUR ---
MEDICAL RECEPTIONIST PT WAS TRANSFERRED FROM [facility] AFTER CONSTRUCTION JOB COST ESTIMATOR WITH DIAGNOSIS A.FIB WITH RVR, RESPIRATORY FAILURE. PT WAS GIVEN CARDIZEM IVP, THEN STARTED CARDIZEM DRIP AT RATE 10 MG/H. PT WAS HYPOTENSIVE, STARTED BOLUS NS 1000 ML. PT WAS PLACED ON BIPAP. PT IS CONFUSED, DISORIENTED, AGITATED AT TIMES, TRYING TO PULL OUT TUBINGS & LINES. RIGHT UPPER ARM MIDLINE. SOFT WRIST RESTRAINTS ON. PT IS NPO FOR PEG INSERTION IN A.M. BY Felecia ESCOBAR. INCONTINENT IN DIAPERS. WILL FOLLOW CLOSE MONITORING.
[2016-10-04] MEDS: PANTOPRAZOLE 40 MG TABLET.DR PO SCH (07:30)
--- NOTE | 2016-10-04 07:30 | NUR ---
ICU/RN: PT RECEIVED FROM ED, RN. PT EYES CLOSED, EASY TO AROUSE BY NAME AND TOUCH, TOLERATING CURRENT BIPAP SETTINGS. HR REMAINS ELEVATED 140-150'S ON CARDIZEM DRIP. WILL CONT TO MONITOR
[2016-10-04 07:35] LABS: ABG BASE EXCESS -7.3 mmol/L; ABG OXYGEN SATURATION 98.1 % (92.0-98.5); ABG PCO2 26.1 mmHg (35.0-45.0); ABG PO2 150.3 mmHg (75.0-100.0); ABG TOTAL HEMOGLOBIN 9.4 G/dL (13.5-18.0); AaDO2 536.6 mmHg; COHb 0.4 % (0.5-1.5); MetHb 1.1 % (0.0-1.5); O2Hb 96.6 % (94.0-97.0); SITE, ABG Right Radial; VENT MODE, BG 15/5 R14 100%
[2016-10-04] MEDS: IV D5/ 0.9% NACL 1,000 ML IV PRN (07:44)
[2016-10-04 07:54] LABS: INR 1.63 (0.87-1.13)
[2016-10-04 07:55] LABS: CALCIUM, SERUM 9.4 mg/dL (8.5-10.1); CREATININE 1.8 mg/dL (0.6-1.3); MAGNESIUM 2.1 mg/dL (1.8-2.4); PHOSPHORUS 4.6 mg/dL (2.5-4.9)
[2016-10-04] MEDS: BOOST PLUS FOOD-VANILLA 237 ML BOX GT SCH ×2 (08:00→17:00)
--- NOTE | 2016-10-04 08:15 | NUR ---
ICU/RN: DR CINTRON AND DR ESCOBAR IN TO SEE PT. DISCUSSED PT S/P COOPERER FOR A-FIB WITH RVR AND RESP. FAILURE. HR CONTINUES TO BE IN 140-150 BPM, CARDIZEM AT FULL DOSE. ATTEMPTED TO WEAN OFF BIPAP WITH POST ABG'S; DESATURATES TO MID TO LOW 80'S ON FACE MASK. PER DR ESCOBAR "NO PROCEDURE TODAY." DR CINTRON TO ENTER ORDERS SHORTLY.
[2016-10-04 08:25] LABS: HEMATOCRIT 31 % (39-51); HEMOGLOBIN 9.8 g/dL (13.5-17.5); LYMPHOCYTES # (AUTO) 1.4 /CMM (0.8-4.8); LYMPHOCYTES % (AUTO) 6.2 % (20.0-44.0); MEAN CORPUSCULAR HEMOGLOBIN 26 PG (26.0-33.0); MEAN CORPUSCULAR HGB CONC 31 g/dl (31.0-36.0); MEAN CORPUSCULAR VOLUME 82 fL (80-96); MONOCYTES # (AUTO) 1.4 /CMM (0.1-1.30); MONOCYTES % (AUTO) 6.5 % (2.0-12.0); NEUTROPHILS # (AUTO) 19.1 /CMM (1.8-8.9); NEUTROPHILS % (AUTO) 87.3 % (43.0-81.0); PLATELET COUNT (AUTO) 213 /CMM (150-450); RDW COEFFICIENT OF VARIATION 21.2 (11.5-15.0); RED BLOOD CELL COUNT(AUTO) 3.81 MIL/uL (4.5-6.0); WHITE BLOOD COUNT (AUTO) 21.9 K/uL (4.3-11.0)
[2016-10-04] MEDS ORDERED: AMIODARONE 900 MG in IV D5W 500 ML IV PRN (08:30)
[2016-10-04] MEDS ORDERED: AMIODARONE 150 MG in IV D5W 100 ML IV ONE (08:30)
[2016-10-04] MEDS: ASPIRIN 81 MG TAB.CHEW GT SCH (08:41)
[2016-10-04] MEDS: ACIDOPHILUS/BULGARICUS 1 EACH TAB.CHEW GT SCH ×2 (08:41→17:00)
[2016-10-04] MEDS: VALPROIC ACID 250 MG/5 ML UDC GT SCH ×3 (08:41→22:42)
--- NOTE | 2016-10-04 08:45 | NUR ---
ICU/RN: PT CONVERTED BACK TO NSR 80-90'S PRIOR TO ADMINISTRATION OF IV AMIODARONE DOSE; PER " D/C AMIO DRIP."
--- NOTE | 2016-10-04 08:45 | NUR ---
RT PATIENT REC'D ON BIPAP WITH SETTINGS ORDERED BY MD. Galvan/Apryl RAMSEY, PATIENT SUCTIONED WITH LARGE AMT OF BLOOD TINGED SECRETIONS. AND PLACED BACK ON BIPAP FIO2 TITRATED. Addendum: 10/04/16 at 0846 by GISELA PADILLA RT Amended: Links added.
[2016-10-04] MEDS ORDERED: VANCOMYCIN 1 GM in IV D5W 250 ML IV SCH (09:00)
[2016-10-04] MEDS: ENOXAPARIN SODIUM 40 MG/0.4 ML DISP.SYRIN SQ SCH (09:24)
[2016-10-04] MEDS ORDERED: CEFEPIME 1 GM in IV D5W 50 ML IV SCH (09:30)
--- NOTE | 2016-10-04 10:00 | NUR ---
ICU/RN: SPOKE WITH ANA LAURA PRITCHETT, VIOLET . DISCUSSED POC WITH SON EXTENSIVELY AND CLARIFIED POLST. PER SON, "I WANT EVERYTHING DONE FOR MY DAD AT THIS MOMENT. MEDS, CPR, AND INTUBATION. HOWEVER, IF HE EVER NEEDS A TRACHEOSTOMY IN THE FUTURE, MY DAD DOESN'T WANT THAT." DOUGH BRAKE MACHINE OPERATOR UPDATED.
[2016-10-04] MEDS: CEFEPIME 1 GM in IV D5W 50 ML IV SCH ×2 (11:23→23:48)
--- NOTE | 2016-10-04 12:05 | NUR ---
ICU/RN: DR MERAZ AT THE BEDSIDE; WITH ORDERS FOR CT CHEST; PT REMAINS ON CONTINUOUS BIPAP, ACCORDING TO DR MORALES, KEEP ON FOR NEXT 24 HRS. OK TO HOLD TEST UNTIL TOMORROW. ABN LABS, POC, MINIMAL UO SARAH TAYLOR. NO NEW ORDERS. Addendum: 10/04/16 at 1708 by GABRIEL LAKHANI RN KEEP NPO TODAY
[2016-10-04] MEDS: ACETYLCYSTEINE 10% SOLN 400 MG/4 ML VIAL NEB SCH (13:58)
[2016-10-04] MEDS ORDERED: FEE PK DOSING 1 MIN EA MC ONE (15:14)
--- NOTE | 2016-10-04 15:30 | NUR ---
ICU/RN: WOUND CARE AND HYGIENIC CARE RENDERED; PT UNABLE TO TURN AND REPOSITION, [employer] MATTRESS APPLIED. BLANCHING REDNESS NOTED ON SACRUM. PHOTOGRAPH IN CHART.
--- NOTE | 2016-10-04 19:24 | NUR ---
ICU/RN: PT NOW AWAKE, RESTLESS, ATTEMPTING TO REMOVE BIPAP AND PULL LINES. REORIENTED PT, NEEDS REINFORCEMENT. MATTRESS DEFLATED FOR SAFETY.
--- NOTE | 2016-10-04 19:30 | NUR ---
RN INITIAL NOTES RECEIVED PT AWAKE ON BED, A/O X1 ONLY WITH BILATERAL SOFT WRIST RESTRAINTS. ON BIPAP 15/5, R 14, 40% FIO2, SATURATING WELL. CURRENTLY SINUS TACH ON THE MONITOR, HR 100'S. SILEVIRA CATH INTACT. RIGHT UPPER ARM MIDLINE WITH D5NS 50MLS/HR, FLUSHED AND PATENT, NO S/S OF INFILTRATION/INFECTION, DRESSING CDI. BED LOW AND LOCKED, SIDERAILS UP, BED ALARM ON. WILL MONITOR
[2016-10-04 21:40] LABS: ABG BASE EXCESS -7.5 mmol/L; ABG PCO2 47.3 mmHg (35.0-45.0); ABG PH 7.238 (7.350-7.450); ABG TOTAL HEMOGLOBIN 10.7 G/dL (13.5-18.0); AaDO2 608.7 mmHg; COHb 0.3 % (0.5-1.5); MetHb 0.5 % (0.0-1.5); O2Hb 79.4 % (94.0-97.0); SITE, ABG Right Radial; VENT MODE, BG S/T 14 15/5 100%
[2016-10-04] MEDS: TEMAZEPAM 7.5 MG CAPSULE GT SCH (22:00)
[2016-10-04] MEDS ORDERED: PROPOFOL 100 ML IV PRN (22:00)
--- NOTE | 2016-10-04 22:27 | NUR ---
RN NOTES 2111 - PATIENT IS SATURATING 69% ON BIPAP, PATIENT IS STILL ALERT BUT NOTED TO BE TACHYPNEIC AND TACHYCARDIC 2124 - STAT ABG DONE; PATIENT NOW ON 100% FIO2 BIPAP WITH SATURATION OF 82% 2144 - ABG RESULTS RECEIVED, CALLED DR DELGADO TO NOTIFY. ORDERED FOR PATIENT TO BE INTUBATED AND LOUISRIDIPIKA VELA 2219 - PATIENT INTUBATED BY ER DR OSORIO. ETT 7.5@LIP, VENT AC 18, TV 500, 100% FIO2, PEEP 5, TOLERATED INTUBATION WELL. WILL ORDER STAT CHEST XR FOR CONFIRMATION OF PLACEMENT.
--- NOTE | 2016-10-04 22:57 | NUR ---
PT INTUBATED BY AT ABOUT 2220 WITH ETT, SETTINGS CHARTED AMBU BAG AT BEDSIDE ALARMS SET AND AUDIBLE SUCTIONED A MODERATE AMOUNT OF THICK RED SECRETIONS BREATH SOUNDS DECREASED ON LEFT COARSE PT RECEIVING ALBUTEROL, ATROVENT Q6 AND MUCOMYST Q8 Addendum: 10/04/16 at 2259 by MEÑO AYERS Amended: Links added.
[2016-10-04] MEDS: PROPOFOL 100 ML IV PRN (23:21)
[2016-10-04 23:52] LABS: ABG BASE EXCESS -4.9 mmol/L; ABG OXYGEN SATURATION 99.1 % (92.0-98.5); ABG PCO2 49.9 mmHg (35.0-45.0); ABG PH 7.264 (7.350-7.450); ABG PO2 334.4 mmHg (75.0-100.0); ABG TOTAL HEMOGLOBIN 9.6 G/dL (13.5-18.0); AaDO2 328.7 mmHg; COHb 0.9 % (0.5-1.5); MetHb 1.3 % (0.0-1.5); O2Hb 96.9 % (94.0-97.0); PEEP,BG 5 cm H2O; SITE, ABG Right Radial; VENT MODE, BG AC 18 500 100% +5; VT, ABG 500 mL
[2016-10-05] VITALS (99 sets, daily range): BP systolic 64–152; BP diastolic 32–91
[2016-10-05] MEDS: ACETYLCYSTEINE 10% SOLN 400 MG/4 ML VIAL NEB SCH ×4 (00:06→22:55)
[2016-10-05] MEDS: ALBUTEROL FS 2.5 MG/3 ML VIAL.NEB NEB SCH ×4 (02:14→20:02)
[2016-10-05] MEDS: IPRATROPIUM NEB FS 0.5 MG/2.5 ML AMPUL.NEB NEB SCH ×4 (02:14→20:02)
[2016-10-05] MEDS: VANCOMYCIN 0.75 GM in IV D5W 250 ML IV SCH ×2 (02:52→20:59)
[2016-10-05 04:32] LABS: HEMATOCRIT 26 % (39-51); HEMOGLOBIN 8.1 g/dL (13.5-17.5); LYMPHOCYTES # (AUTO) 1.7 /CMM (0.8-4.8); LYMPHOCYTES % (AUTO) 9.9 % (20.0-44.0); MEAN CORPUSCULAR HEMOGLOBIN 26 PG (26.0-33.0); MEAN CORPUSCULAR HGB CONC 32 g/dl (31.0-36.0); MEAN CORPUSCULAR VOLUME 82 fL (80-96); MONOCYTES % (AUTO) 5.9 % (2.0-12.0); NEUTROPHILS # (AUTO) 14.5 /CMM (1.8-8.9); NEUTROPHILS % (AUTO) 84.2 % (43.0-81.0); PLATELET COUNT (AUTO) 242 /CMM (150-450); RED BLOOD CELL COUNT(AUTO) 3.12 MIL/uL (4.5-6.0); WHITE BLOOD COUNT (AUTO) 17.2 K/uL (4.3-11.0)
[2016-10-05] MEDS: METRONIDAZOLE 500MG/ NS 100ML 250 MG in PREMIX 1 EA IV SCH ×4 (05:06→23:51)
[2016-10-05] MEDS: IV D5/ 0.9% NACL 1,000 ML IV PRN ×2 (05:06→21:08)
[2016-10-05] MEDS: GUAIFENESIN 300 MG/15 ML UDC PO SCH ×4 (05:06→22:09)
[2016-10-05 05:09] LABS: ALBUMIN 1.8 g/dL (3.4-5.0); BILIRUBIN,TOTAL 0.7 mg/dL (0.2-1.0); CALCIUM, SERUM 9.2 mg/dL (8.5-10.1); PHOSPHORUS 3.9 mg/dL (2.5-4.9); POTASSIUM 3.5 mmol/L (3.5-5.1); TOTAL PROTEIN, SERUM 5.1 g/dL (6.4-8.2)
--- NOTE | 2016-10-05 06:30 | NUR ---
RN CLOSING NOTES PT IS STABLE ON VENT, SATURATING WELL. ALL DUE MEDS GIVEN, AM CARE PROVIDED. WILL ENDORSE TO AM RN
[2016-10-05 07:56] LABS: TROPONIN I 2.338 ng/mL (0.00-0.056)
[2016-10-05] MEDS: BOOST PLUS FOOD-VANILLA 237 ML BOX GT SCH (08:00)
[2016-10-05] MEDS ORDERED: IV SET PRIMARY PUMP SET 1 EA INFUS.SET MC ONE ×4 (08:25→14:32)
[2016-10-05 08:28] LABS: ABG BASE EXCESS -5.2 mmol/L; ABG OXYGEN SATURATION 98.6 % (92.0-98.5); ABG PCO2 34.1 mmHg (35.0-45.0); ABG PH 7.372 (7.350-7.450); ABG PO2 202.6 mmHg (75.0-100.0); ABG TOTAL HEMOGLOBIN 9.4 G/dL (13.5-18.0); AaDO2 187.7 mmHg; COHb 0.7 % (0.5-1.5); MetHb 1.3 % (0.0-1.5); O2Hb 96.6 % (94.0-97.0); PEEP,BG 5 cm H2O; SITE, ABG Right Radial; VENT MODE, BG AC 18 500 60%
[2016-10-05] MEDS: ASPIRIN 81 MG TAB.CHEW GT SCH (08:31)
[2016-10-05] MEDS: PANTOPRAZOLE 40 MG TABLET.DR PO SCH (08:31)
[2016-10-05] MEDS: POTASSIUM CL. PREMIX PERIPHER. 50 ML IV SCH ×5 (08:31→13:21)
[2016-10-05] MEDS: VALPROIC ACID 250 MG/5 ML UDC GT SCH ×2 (08:31→21:00)
[2016-10-05] MEDS: ACIDOPHILUS/BULGARICUS 1 EACH TAB.CHEW GT SCH ×2 (08:31→18:23)
[2016-10-05] MEDS: ENOXAPARIN SODIUM 40 MG/0.4 ML DISP.SYRIN SQ SCH (08:32)
[2016-10-05] MEDS ORDERED: ETOMIDATE 2 MG/ML VIAL IV ONE (10:56)
[2016-10-05] MEDS ORDERED: SUCCINYLCHOLINE CHLORIDE 20 MG/ML VIAL IV ONE (10:56)
[2016-10-05] MEDS ORDERED: FEE EMEERGENCY 1 MIN EA MC ONE (10:57)
[2016-10-05] MEDS: CEFEPIME 1 GM in IV D5W 50 ML IV SCH (11:53)
--- NOTE | 2016-10-05 12:15 | NUR ---
ORDER FOR CT SCAN CLARIFIED WITH MICKIE WOOD TO CANCEL. RADIOLOGY NOTIFIED.
--- NOTE | 2016-10-05 13:40 | NUR ---
PT DEVELOPED AFIB 160-[address] CINTRON NOTIFIED AMIO BOLUS AND GTT ORDERED.
[2016-10-05] MEDS ORDERED: AMIODARONE 150 MG in IV D5W 100 ML IV ONE (14:00)
[2016-10-05] MEDS ORDERED: AMIODARONE 900 MG in IV D5W 482 ML IV PRN (14:00)
[2016-10-05] MEDS ORDERED: SECONDARY IV SET 1 EA INFUS.SET MC ONE (14:03)
[2016-10-05] MEDS: PROPOFOL 100 ML IV PRN (14:04)
--- NOTE | 2016-10-05 14:11 | NUR ---
PT NOW HYPOTENSIVE DR CINTRON IS ON THE WAY FOR CARDIOVERSION.
--- NOTE | 2016-10-05 14:18 | NUR ---
DR CINTRON AT BEDSIDE. PT FULLY SEDATED WITH PROPOFOL 25 MICS. HR AFIB 132 CARDIOVERTED AT 200J. CONVERTED TO SR 75. CBP IN 80TH XAVIER. ORDERED.
--- NOTE | 2016-10-05 15:00 | NUR ---
PT INITATED ON XAVIER GTT AT 100 MICS. WITH GOOD RESPONSE BP 97/49
[2016-10-05] MEDS: PHENYLEPHRINE 40 MG in IV D5W 250 ML IV PRN ×2 (15:03→21:00)
[2016-10-05] MEDS ORDERED: IV NS 0.9% 1,000 ML BAG IV ONE (18:00)
[2016-10-05] MEDS ORDERED: IV NS 0.9% 1,000 ML IV PRN (18:00)
[2016-10-05] MEDS ORDERED: IV NS 0.9% 1,000 ML IV ONE (18:00)
--- NOTE | 2016-10-05 18:00 | NUR ---
UPON REPOSITIONING PT STARTED TO BITE ETT, AND PRESENTED WITH AFIB 140-150 DR CINTRON NOTIFIED, NO NEW ORDERS.
--- NOTE | 2016-10-05 19:30 | NUR ---
RN INITIAL NOTES RECEIVED THE PATIENT SEDATED ON BED WITH DIPRIVAN DRIP @ 20MCG/KG/MIN. CURRENTLY SINUS RHYTHM ON THE MONITOR, HR 70'S. ON NEOSYNEPHRINE DRIP @ 120MCG/MIN TO KEEP SBP >90. CURRENTLY ON VENT, ETT 7.5/24@LIP, AC 14, TV 500, 45% FIO2, PEEP 5, SATURATING WELL. OGT CLAMPED AND IN PLACE. SILVEIRA CATH NOTED. RIGHT UPPER ARM MIDLINE, RIGHT FOREARM 18G, AND LEFT UPPER ARM PICC WITH 0.9% NS BOLUS RUNNING, FLUSHED AND PATENT, NO S/S OF INFILTRATION/INFECTION, DRESSINGS CDI. BILATERAL SOFT WRIST RESTRAINTS IN PLACE. BED LOCKED AND LOW, SIDERAILS UP, BED ALARM ON. WILL MONITOR
[2016-10-05] MEDS: TEMAZEPAM 7.5 MG CAPSULE GT SCH (22:00)
--- NOTE | 2016-10-05 22:06 | NUR ---
RN NOTES DID NOT ADMINISTER SCHEDULED RESTORIL THE PATIENT IS ALREADY ON DIPRIVAN DRIP AND SEDATED
[2016-10-06] VITALS (89 sets, daily range): BP systolic 84–133; BP diastolic 35–66
[2016-10-06] MEDS: CEFEPIME 1 GM in IV D5W 50 ML IV SCH ×2 (00:17→12:01)
[2016-10-06] MEDS ORDERED: IV SET PRIMARY PUMP SET 1 EA INFUS.SET MC ONE ×3 (00:46→21:01)
[2016-10-06] MEDS: PROPOFOL 100 ML IV PRN ×3 (00:52→21:06)
[2016-10-06] MEDS: IPRATROPIUM NEB FS 0.5 MG/2.5 ML AMPUL.NEB NEB SCH ×4 (01:20→20:22)
[2016-10-06] MEDS: ALBUTEROL FS 2.5 MG/3 ML VIAL.NEB NEB SCH ×4 (01:20→20:22)
[2016-10-06] MEDS: GUAIFENESIN 300 MG/15 ML UDC PO SCH (04:01)
[2016-10-06 05:07] LABS: BASOPHILS # (AUTO) 0.1 /CMM (0.0-0.2); BASOPHILS % (AUTO) 0.2 % (0.0-2.0); EOSINOPHILS # (AUTO) 0.1 /CMM (0.0-0.7); EOSINOPHILS % (AUTO) 0.6 % (0.0-6.0); HEMATOCRIT 28 % (39-51); HEMOGLOBIN 8.9 g/dL (13.5-17.5); LYMPHOCYTES % (AUTO) 13.1 % (20.0-44.0); MEAN CORPUSCULAR HEMOGLOBIN 27 PG (26.0-33.0); MEAN CORPUSCULAR HGB CONC 32 g/dl (31.0-36.0); MEAN CORPUSCULAR VOLUME 83 fL (80-96); MONOCYTES # (AUTO) 1.4 /CMM (0.1-1.30); MONOCYTES % (AUTO) 6.4 % (2.0-12.0); NEUTROPHILS % (AUTO) 79.7 % (43.0-81.0); PLATELET COUNT (AUTO) 299 /CMM (150-450); RDW COEFFICIENT OF VARIATION 22.4 (11.5-15.0); RED BLOOD CELL COUNT(AUTO) 3.37 MIL/uL (4.5-6.0); WHITE BLOOD COUNT (AUTO) 22.5 K/uL (4.3-11.0)
[2016-10-06] MEDS: IV D5/ 0.9% NACL 1,000 ML IV PRN ×2 (05:08→13:13)
[2016-10-06] MEDS: METRONIDAZOLE 500MG/ NS 100ML 250 MG in PREMIX 1 EA IV SCH ×3 (05:09→17:36)
[2016-10-06] MEDS: PHENYLEPHRINE 40 MG in IV D5W 250 ML IV PRN ×4 (05:10→17:37)
[2016-10-06 05:30] LABS: ALBUMIN 1.7 g/dL (3.4-5.0); BILIRUBIN,TOTAL 0.5 mg/dL (0.2-1.0); CALCIUM, SERUM 8.9 mg/dL (8.5-10.1); CREATININE 1.9 mg/dL (0.6-1.3); MAGNESIUM 1.8 mg/dL (1.8-2.4); PHOSPHORUS 3.5 mg/dL (2.5-4.9); TOTAL PROTEIN, SERUM 5.1 g/dL (6.4-8.2)
[2016-10-06 05:44] LABS: TROPONIN I 1.155 ng/mL (0.00-0.056)
[2016-10-06 06:10] LABS: LYMPHOCYTES % (MANUAL) 10 % (16-48); MONOCYTES % (MANUAL) 7 % (0-11.0); NEUTROPHILS % (MANUAL) 83 (42-76); PLATELET ESTIMATE ADEQUATE
[2016-10-06 06:11] LABS: ANISOCYTOSIS 3+; HYPOCHROMASIA 2+
--- NOTE | 2016-10-06 06:30 | NUR ---
RN CLOSING NOTES PT REMAINS STABLE OF THE MOMENT. ALL DUE MEDS GIVEN, AM CARE PROVIDED. WILL ENDORSE TO AM RN
[2016-10-06] MEDS: ACETYLCYSTEINE 10% SOLN 400 MG/4 ML VIAL NEB SCH (07:25)
[2016-10-06] MEDS: PANTOPRAZOLE 40 MG TABLET.DR PO SCH (07:30)
[2016-10-06] MEDS: AMIODARONE HCL 200 MG TABLET PO SCH ×4 (08:40→17:36)
[2016-10-06] MEDS: VALPROIC ACID 250 MG/5 ML UDC GT SCH ×2 (08:41→21:46)
[2016-10-06] MEDS: ACIDOPHILUS/BULGARICUS 1 EACH TAB.CHEW GT SCH ×2 (09:00→17:35)
[2016-10-06] MEDS: ASPIRIN 81 MG TAB.CHEW GT SCH (09:00)
[2016-10-06] MEDS: ENOXAPARIN SODIUM 40 MG/0.4 ML DISP.SYRIN SQ SCH (10:00)
[2016-10-06] MEDS: HYDROCODONE/APAP 5/325MG 1 EACH TABLET GT PRN (12:02)
[2016-10-06] MEDS: ALBUMIN 25% 25 GM in PREMIX 1 EA IV SCH ×3 (13:12→23:40)
[2016-10-06] MEDS: VANCOMYCIN 0.75 GM in IV D5W 250 ML IV SCH (16:11)
[2016-10-06] MEDS ORDERED: FIBERSOURCE HN 1,000 ML BOTTLE GT PRN (16:30)
[2016-10-06 16:43] LABS: ABG BASE EXCESS -9.1 mmol/L; ABG OXYGEN SATURATION 94.6 % (92.0-98.5); ABG PCO2 47.2 mmHg (35.0-45.0); ABG PO2 84.5 mmHg (75.0-100.0); ABG TOTAL HEMOGLOBIN 10.3 G/dL (13.5-18.0); AaDO2 182.7 mmHg; COHb 0.7 % (0.5-1.5); PEEP,BG 5 cm H2O; SITE, ABG Right Radial; VT, ABG 500 mL
[2016-10-06] MEDS ORDERED: SECONDARY IV SET 1 EA INFUS.SET MC ONE (18:58)
[2016-10-06] MEDS: MEROPENEM 1 G in IV NS 0.9% 100 ML IV SCH (19:02)
[2016-10-06] MEDS: MICAFUNGIN SODIUM 100 MG in IV NS 0.9% 100 ML IV SCH (20:01)
--- NOTE | 2016-10-06 20:37 | NUR ---
received pt from day shift, sedated on diprivan at 20mcg, SR, receiving dean at 300mcg, on the vent, lungs congested, BL hand pitting edema, GT to feeding tolerates well, f/c low output MD aware, v/s stable, no pain, pt turned and repositioned.
[2016-10-06] MEDS ORDERED: MEROPENEM 500 MG in IV NS 0.9% 50 ML IV SCH (21:00)
[2016-10-06] MEDS: PHENYLEPHRINE 80 MG in IV D5W 250 ML IV PRN (21:07)
[2016-10-06] MEDS: TEMAZEPAM 7.5 MG CAPSULE GT SCH (21:46)
--- NOTE | 2016-10-06 21:47 | NUR ---
Restoril not given pt sedated on Diprivan
[2016-10-07] VITALS (72 sets, daily range): BP systolic 103–132; BP diastolic 31–51
--- NOTE | 2016-10-07 00:18 | NUR ---
pt is resting in the bed, v/s stable, no pain, sedated on diprivan at 20mcg, receiving dean at 130mcg, pt turned and repositioned q2hrs.
[2016-10-07] MEDS: ALBUTEROL FS 2.5 MG/3 ML VIAL.NEB NEB SCH ×4 (01:09→19:23)
[2016-10-07] MEDS: IPRATROPIUM NEB FS 0.5 MG/2.5 ML AMPUL.NEB NEB SCH ×4 (01:09→19:23)
--- NOTE | 2016-10-07 04:25 | NUR ---
pt is resting in the bed, no acute distress overnight, SR, sedated on Diprivan at 20mcg, receiving dean at 100mcg, v/s stable, no pain, pt cleaned, changed and repositioned q2hrs.
[2016-10-07 04:53] LABS: BASOPHILS # (AUTO) 0.1 /CMM (0.0-0.2); BASOPHILS % (AUTO) 0.8 % (0.0-2.0); EOSINOPHILS # (AUTO) 0.2 /CMM (0.0-0.7); EOSINOPHILS % (AUTO) 1.6 % (0.0-6.0); HEMATOCRIT 26 % (39-51); HEMOGLOBIN 8.3 g/dL (13.5-17.5); LYMPHOCYTES # (AUTO) 1.7 /CMM (0.8-4.8); LYMPHOCYTES % (AUTO) 11.3 % (20.0-44.0); MEAN CORPUSCULAR HEMOGLOBIN 26 PG (26.0-33.0); MEAN CORPUSCULAR HGB CONC 32 g/dl (31.0-36.0); MEAN CORPUSCULAR VOLUME 83 fL (80-96); MONOCYTES # (AUTO) 1.2 /CMM (0.1-1.30); MONOCYTES % (AUTO) 7.9 % (2.0-12.0); NEUTROPHILS # (AUTO) 12.1 /CMM (1.8-8.9); NEUTROPHILS % (AUTO) 78.4 % (43.0-81.0); PLATELET COUNT (AUTO) 241 /CMM (150-450); RDW COEFFICIENT OF VARIATION 21.1 (11.5-15.0); RED BLOOD CELL COUNT(AUTO) 3.16 MIL/uL (4.5-6.0); WHITE BLOOD COUNT (AUTO) 15.4 K/uL (4.3-11.0)
[2016-10-07 05:05] LABS: CREATININE 2.2 mg/dL (0.6-1.3); POTASSIUM 3.8 mmol/L (3.5-5.1)
[2016-10-07] MEDS ORDERED: IV NS 0.9% 250 ML IV ONE (05:11)
[2016-10-07] MEDS: ALBUMIN 25% 25 GM in PREMIX 1 EA IV SCH (05:28)
--- NOTE | 2016-10-07 07:50 | NUR ---
DEPUTY SHERIFF BAILIFF: pt.is getting GTF, IVF was stopped per order/by overnight cashier report
--- NOTE | 2016-10-07 08:00 | NUR ---
READING AIDE: pt.is sedated well with 20mcg Diprivan, no grimacing, reactive to touch/pain, SR, O2sat. WNL, Lalito gtt 70mcg, continue titrate off, SBP over 100 now, FiO2 50%, GTF residual 450ml, hold&HOB over 40
[2016-10-07 08:38] LABS: ABG BASE EXCESS -7.4 mmol/L; ABG OXYGEN SATURATION 96.8 % (92.0-98.5); ABG PCO2 27.6 mmHg (35.0-45.0); ABG PH 7.393 (7.350-7.450); ABG PO2 94.9 mmHg (75.0-100.0); ABG TOTAL HEMOGLOBIN 8.8 G/dL (13.5-18.0); AaDO2 230.6 mmHg; COHb 1.4 % (0.5-1.5); MetHb 1.2 % (0.0-1.5); O2Hb 94.3 % (94.0-97.0); PEEP,BG 5 cm H2O; SITE, ABG Right Radial; VT, ABG 550 mL
[2016-10-07] MEDS: PANTOPRAZOLE 40 MG TABLET.DR PO SCH (08:52)
[2016-10-07] MEDS: VANCOMYCIN 0.75 GM in IV D5W 250 ML IV SCH (08:56)
--- NOTE | 2016-10-07 09:00 | NUR ---
ROLLER TURNER is in room, updated with pt.current status, pressor rate, VS, I/O, sedation level, ABG, high GTF residual, said: d/c 10/04 CT chest w/o contrast order, see new orders
[2016-10-07] MEDS ORDERED: IV SET PRIMARY PUMP SET 1 EA INFUS.SET MC ONE (09:03)
[2016-10-07] MEDS: ENOXAPARIN SODIUM 40 MG/0.4 ML DISP.SYRIN SQ SCH (09:07)
--- NOTE | 2016-10-07 09:30 | NUR ---
[facility]: called, updated with pt.condition, GT site, 450ml GTF residual at 0800, said: continue same orders.
--- NOTE | 2016-10-07 09:35 | NUR ---
SPOILAGE WORKER: rechecked orders, removed Willian valve, waiting from pharmacy H2O2, Bacitracin for GT care
[2016-10-07] MEDS: VALPROIC ACID 250 MG/5 ML UDC GT SCH ×2 (09:47→20:12)
[2016-10-07] MEDS: AMIODARONE HCL 200 MG TABLET PO SCH ×3 (09:48→16:50)
[2016-10-07] MEDS: ACIDOPHILUS/BULGARICUS 1 EACH TAB.CHEW GT SCH ×2 (09:48→16:49)
[2016-10-07] MEDS: ASPIRIN 81 MG TAB.CHEW GT SCH (09:57)
[2016-10-07] MEDS: MEROPENEM 1 G in IV NS 0.9% 100 ML IV SCH ×2 (09:57→20:12)
[2016-10-07] MEDS: PROPOFOL 100 ML IV PRN ×2 (10:28→20:12)
--- NOTE | 2016-10-07 12:07 | NUR ---
WHITE GOODS APPLIANCE TECH: pt.son called/notified re pt.condition, VS, GTF, orders, POC
[2016-10-07] MEDS: PHENYLEPHRINE 80 MG in IV D5W 250 ML IV PRN (13:20)
--- NOTE | 2016-10-07 14:36 | NUR ---
BRANCH OPERATIONS MANAGER: O2sat. WNL, SR, SBP over 100, continue titrate pressor, pt.is sedated well, confirmed: continue Amiodarone PO. Pt.wt is 143 lbs during last days, bed scale shows 170lbs now, tech.problem? GTF residual WNL now
[2016-10-07] MEDS ORDERED: BACITRACIN ZINC OINT PACKET 1 EA PACKET TP PRN (17:00)
[2016-10-07] MEDS ORDERED: HYDROGEN PEROXIDE 480 ML BOTTLE EXT PRN (17:00)
--- NOTE | 2016-10-07 17:32 | NUR ---
TIE BUYER: pt.is sedated well, reactive by pain, able to bite ETT, no grimacing now, O2sat WNL, SR, continue titrate pressor, pm/skin care done, sacral area skin: redness, skin is intact, turned q2h, GTF residual 300ml, hold&recheck in 2hrs, keep HOB over 35
--- NOTE | 2016-10-07 18:11 | NUR ---
RT END OF THE SHIFT REPORT: PT. 81 Y OLD MALE REMAIN ORALLY INTUBATED ETT#7.5@24CM ON VENT WITH NOTED SETTINGS, ALARMS ARE SET AND FUNCTIONAL, B/S RALES/RHONCHI SUX' FOR LARGE/MINIMAL SWEET SECRETIONS, NO DISTRESS NOTED T/O SHIFT NO CHANGES EQUAL CHEST RISE NOTED PT. REMAIN STABLE TX'S GIVEN INLINE NO ADVERSE REACTION NOTED VENT PLUGGED INTO RED OUTLET AND AMBU BAG AT THE BEDSIDE. REPORT WILL BE PASS TO PM SHIFT. Addendum: 10/07/16 at 1812 by SFOY THOMPSON RT Amended: Links added.
--- NOTE | 2016-10-07 18:17 | NUR ---
PODIATRIST ASSISTANT: VIVIAN Post is in room, notified re pt.vs, sedation, pressor, I/O, GTF high residual episodes, see new orders
--- NOTE | 2016-10-07 20:00 | NUR ---
BUDGET MANAGER NOTES RECEIVED PT IN BED, SEDATED. ON VENT VIA 7.5 ETT, 24 CM AT LIPS. AC 20, TV 550, FIO2 50%, PEEP 5. TELE READS SR AT 77 BPM. BRANDON MIDLINE, CONNIE PICC LINE, LEFT FA 18G PIV. RUNNING DIPRIVAN AT 20 MCG/KG/MIN AND PHENYLEPHRINE AT 20 MCG/MIN. SILVEIRA CATH IN PLACE, DRAINING TO CLEAR MEGHA URINE. FIBERSOURCE ON HOLD DUE TO GASTRIC RESIDUAL OF 300 ML. HOB ELEVATED, SIDE RAILS X3, KCI MATTRESS. TURNED AND REPOSITIONED.
[2016-10-07] MEDS: MICAFUNGIN SODIUM 100 MG in IV NS 0.9% 100 ML IV SCH (20:12)
--- NOTE | 2016-10-07 21:30 | NUR ---
EROSION CONTROL SPECIALIST NOTES CONTACTED DR MORRISON AND MADE AWARE OF GASTRIC RESIDUAL AMOUNT. NEW ORDER TO DECREASE GTF RATE TO 30 ML/HR AND REGLAN OBTAINED.
[2016-10-07] MEDS ORDERED: METOCLOPRAMIDE HCL 10 MG/2 ML VIAL ONE (21:45)
[2016-10-07] MEDS: METOCLOPRAMIDE HCL 10 MG/2 ML VIAL IV PRN (21:50)
[2016-10-07] MEDS ORDERED: SECONDARY IV SET 1 EA INFUS.SET MC ONE (21:54)
[2016-10-07] MEDS: TEMAZEPAM 7.5 MG CAPSULE GT SCH (21:54)
[2016-10-08] VITALS (48 sets, daily range): BP systolic 103–132; BP diastolic 28–46
[2016-10-08] MEDS: ALBUTEROL FS 2.5 MG/3 ML VIAL.NEB NEB SCH ×4 (01:20→20:05)
[2016-10-08] MEDS: IPRATROPIUM NEB FS 0.5 MG/2.5 ML AMPUL.NEB NEB SCH ×4 (01:20→20:05)
[2016-10-08] MEDS ORDERED: IV NS 0.9% 250 ML IV ONE (04:39)
[2016-10-08 04:48] LABS: BASOPHILS % (AUTO) 0.3 % (0.0-2.0); EOSINOPHILS # (AUTO) 0.1 /CMM (0.0-0.7); EOSINOPHILS % (AUTO) 1.1 % (0.0-6.0); HEMATOCRIT 25 % (39-51); HEMOGLOBIN 8.2 g/dL (13.5-17.5); LYMPHOCYTES # (AUTO) 1.3 /CMM (0.8-4.8); LYMPHOCYTES % (AUTO) 9.9 % (20.0-44.0); MEAN CORPUSCULAR HEMOGLOBIN 27 PG (26.0-33.0); MEAN CORPUSCULAR HGB CONC 32 g/dl (31.0-36.0); MEAN CORPUSCULAR VOLUME 83 fL (80-96); MONOCYTES # (AUTO) 0.8 /CMM (0.1-1.30); MONOCYTES % (AUTO) 6.4 % (2.0-12.0); NEUTROPHILS # (AUTO) 10.8 /CMM (1.8-8.9); NEUTROPHILS % (AUTO) 82.3 % (43.0-81.0); PLATELET COUNT (AUTO) 188 /CMM (150-450); RDW COEFFICIENT OF VARIATION 21.6 (11.5-15.0); RED BLOOD CELL COUNT(AUTO) 3.08 MIL/uL (4.5-6.0); WHITE BLOOD COUNT (AUTO) 13.2 K/uL (4.3-11.0)
[2016-10-08 05:10] LABS: CALCIUM, SERUM 8.9 mg/dL (8.5-10.1); CREATININE 2.2 mg/dL (0.6-1.3); POTASSIUM 4.1 mmol/L (3.5-5.1)
--- NOTE | 2016-10-08 05:47 | NUR ---
Received pt on vent support, AC 20,550, +5 AND 50% FIO2, vent orders were checked and current to MDs orders, pt remained stable no sob or distress noted, titrated fio2 to 40% and current saturation is at 100%. Addendum: 10/08/16 at 0550 by FLORA SOTELO RT Amended: Links added.
--- NOTE | 2016-10-08 07:30 | NUR ---
RN INITIAL NOTES PT IN BED, SEDATED, HOB ELEVATED 35 DEGREES, ON [facility] VENT VIA ETT 7.5/24, AC 20, TV 550, FIO2 50%, PEEP 5, TOLERATING WELL, WILL HAVE ABG DONE LATER. PT HAS SILVEIRA CATH DRAINING CLEAR MEGHA URINE, CDI, NO SIGNS OF LEAKAGE. IV ON LFA 18G, BRANDON MIDLINE, AND CONNIE PICC RUNNING DIPRIVAN @ 20 MCG, AND NS TKO, TOLERATING WELL, NO SIGNS OF INFECTION/INFILTRATION. GT CDI, RUNNING FIBERSOURCE @ 30 CC/HR, PT HAS 125 CC OF RESIDUAL, WILL CONTINUE FEEDING @ RATE OF 30 CC/HR. PT HAS BEEN OFF XAVIER. SINCE 0430. PT HAS DVT STOCKINGS, EDEMA IN ALL FOUR EXTREMITIES; RIGHT LEG PTTING 4+, OTHER THREE 3+. PT HAS BILATERAL SOFT WRIST RESTRAINTS, TWO FINGER SPACE, WRISTS CDI. CALL LIGHT WITHIN EASY REACH, SAFETY MEASURES MAINTAINED, WILL CONTINUE TO MONITOR AND FOLLOW MD ORDERS.
[2016-10-08] MEDS: PANTOPRAZOLE 40 MG TABLET.DR PO SCH (07:58)
[2016-10-08] MEDS: ASPIRIN 81 MG TAB.CHEW GT SCH (08:00)
[2016-10-08] MEDS: VALPROIC ACID 250 MG/5 ML UDC GT SCH ×2 (08:00→21:01)
[2016-10-08] MEDS ORDERED: BUMETANIDE INJ 8 MG in IV NS 0.9% 48 ML IV ONE (08:00)
[2016-10-08] MEDS: ACIDOPHILUS/BULGARICUS 1 EACH TAB.CHEW GT SCH ×2 (08:00→17:25)
[2016-10-08] MEDS: AMIODARONE HCL 200 MG TABLET PO SCH ×3 (08:01→17:25)
[2016-10-08] MEDS: MEROPENEM 1 G in IV NS 0.9% 100 ML IV SCH ×2 (08:01→21:01)
[2016-10-08] MEDS: ENOXAPARIN SODIUM 30 MG/0.3 ML DISP.SYRIN SQ SCH (08:04)
[2016-10-08] MEDS: METOCLOPRAMIDE HCL 10 MG/2 ML VIAL IV PRN (08:14)
[2016-10-08] MEDS: VANCOMYCIN 0.75 GM in IV D5W 250 ML IV SCH ×2 (08:36→08:53)
[2016-10-08] MEDS: FIBERSOURCE HN 1,000 ML BOTTLE GT PRN ×2 (08:44→16:14)
[2016-10-08] MEDS ORDERED: SECONDARY IV SET 1 EA INFUS.SET MC ONE (08:53)
[2016-10-08 09:00] LABS: ABG BASE EXCESS -6.5 mmol/L; ABG OXYGEN SATURATION 98.2 % (92.0-98.5); ABG PCO2 29.3 mmHg (35.0-45.0); ABG PH 7.393 (7.350-7.450); ABG PO2 137.6 mmHg (75.0-100.0); ABG TOTAL HEMOGLOBIN 9.1 G/dL (13.5-18.0); AaDO2 113.9 mmHg; COHb 0.9 % (0.5-1.5); MetHb 1.2 % (0.0-1.5); O2Hb 96.1 % (94.0-97.0); SITE, ABG Right Radial; VENT MODE, BG AC 20 550 40% +5
--- NOTE | 2016-10-08 09:15 | NUR ---
decreased fio2 from 40 to 35%; pao2 137, spo2 99% Addendum: 10/08/16 at 0915 by VALENCIA GUTIÉRREZ RT Amended: Links added.
--- NOTE | 2016-10-08 10:00 | NUR ---
RN NOTES PT BACK ON DIP 20 MCG, PT LOOKS UNCOMFORTABLE WITH FACIAL GRIMACING.
[2016-10-08] MEDS: PROPOFOL 100 ML IV PRN ×2 (11:50→22:02)
--- NOTE | 2016-10-08 16:45 | NUR ---
CHARGING MACHINE OPERATOR NOTE Son visited, given updates, all questions and concerns were answered.
[2016-10-08] MEDS ORDERED: IV SET PRIMARY PUMP SET 1 EA INFUS.SET MC ONE ×2 (17:47→17:55)
--- NOTE | 2016-10-08 18:41 | NUR ---
RN NOTES PT TOLERATING GTF @ 30 CC/HR BETTER, NO RESIDUAL.
--- NOTE | 2016-10-08 19:18 | NUR ---
RN CLOSING NOTES PT IN STABLE CONDITION, ALL MD ORDERS CARRIED OUT, IV'S CDI, SILVEIRA CATH CDI, TOLERATING ALL MEDS WELL, VSS, AFEBRILE, TOLERATING MECH VENT WELL. CALL LIGHT WITHIN EASY REACH, SAFETY MEASURES MAINTAINED, REPORT GIVEN TO NIGHT NURSE FOR ALICIA.
[2016-10-08] MEDS: MICAFUNGIN SODIUM 100 MG in IV NS 0.9% 100 ML IV SCH (20:00)
--- NOTE | 2016-10-08 20:00 | NUR ---
Received patient non verbal sedated on Diprivan drip @ 20 mcg/kg/min intubated to vent on AC 20,TV 550,FIO2 35%,PEEP 5.Well tolerated with SPO2 99%.Suction small amount white thick secretions.SR no ectopies noted.Hemodynamically stable.VS stable.GT feeding in progress with 5 ml residual.HOB elevated at 30 degrees.Abdomen soft BS active.FC draining clear dae urine.Generalized edema and both upper and lower extremities offloaded.Perineal redness.Kept clean and dry.Repositioned per protocol.No acute distress noted.Continue to monitor.
[2016-10-08] MEDS: TEMAZEPAM 7.5 MG CAPSULE GT SCH (22:00)
--- NOTE | 2016-10-08 22:00 | NUR ---
Restoril not administered patient already on Diprivan drip.
[2016-10-09] VITALS (40 sets, daily range): BP systolic 102–152; BP diastolic 32–52
[2016-10-09] MEDS: IPRATROPIUM NEB FS 0.5 MG/2.5 ML AMPUL.NEB NEB SCH ×4 (01:38→19:47)
[2016-10-09] MEDS: ALBUTEROL FS 2.5 MG/3 ML VIAL.NEB NEB SCH ×4 (01:38→19:47)
--- NOTE | 2016-10-09 04:00 | NUR ---
Patient resting.VS stable.AM bed bath rendered.Complete linens changed.Repositioned to comfort.
[2016-10-09 05:23] LABS: BASOPHILS % (AUTO) 0.2 % (0.0-2.0); EOSINOPHILS # (AUTO) 0.2 /CMM (0.0-0.7); EOSINOPHILS % (AUTO) 1.4 % (0.0-6.0); HEMATOCRIT 27 % (39-51); HEMOGLOBIN 8.6 g/dL (13.5-17.5); LYMPHOCYTES # (AUTO) 1.2 /CMM (0.8-4.8); LYMPHOCYTES % (AUTO) 8.4 % (20.0-44.0); MEAN CORPUSCULAR HEMOGLOBIN 27 PG (26.0-33.0); MEAN CORPUSCULAR HGB CONC 32 g/dl (31.0-36.0); MEAN CORPUSCULAR VOLUME 83 fL (80-96); MONOCYTES % (AUTO) 7.1 % (2.0-12.0); NEUTROPHILS # (AUTO) 12.2 /CMM (1.8-8.9); NEUTROPHILS % (AUTO) 82.9 % (43.0-81.0); PLATELET COUNT (AUTO) 207 /CMM (150-450); RDW COEFFICIENT OF VARIATION 22.5 (11.5-15.0); RED BLOOD CELL COUNT(AUTO) 3.19 MIL/uL (4.5-6.0); WHITE BLOOD COUNT (AUTO) 14.7 K/uL (4.3-11.0)
[2016-10-09 05:37] LABS: CALCIUM, SERUM 9.2 mg/dL (8.5-10.1); CREATININE 2.5 mg/dL (0.6-1.3); POTASSIUM 3.8 mmol/L (3.5-5.1)
--- NOTE | 2016-10-09 06:59 | NUR ---
Patient VS remains stable.Tolerating GT feeding.SR 60'S-70'S.No significant change noted during the shift.All needs anticipated and met.
--- NOTE | 2016-10-09 07:17 | NUR ---
RN INITIAL NOTES PT IN BED, SEDATED, HOB ELEVATED 35 DEGREES, ON TELE MONITOR WITH SR 60-70'S, ON [facility] VENT VIA ETT 7.5/24, AC 20, TV 550, FIO2 35%, PEEP 5, TOLERATING WELL, WILL HAVE ABG DONE LATER. PT HAS SILVEIRA CATH DRAINING CLEAR MEGHA URINE, CDI, NO SIGNS OF LEAKAGE. IV ON LFA 18G, BRANDON MIDLINE, AND CONNIE PICC RUNNING DIPRIVAN @ 20 MCG, AND NS TKO, TOLERATING WELL, NO SIGNS OF INFECTION/INFILTRATION. GT CDI, RUNNING FIBERSOURCE @ 30 CC/HR, PT HAS 125 CC OF RESIDUAL, WILL CONTINUE FEEDING @ RATE OF 30 CC/HR. PT HAS BEEN OFF XAVIER. SINCE 04310/08/16. PT HAS DVT STOCKINGS, EDEMA IN ALL FOUR EXTREMITIES; RIGHT LEG PTTING 4+, OTHER THREE 3+. SKIN CDI, NO OPEN WOUNDS. PT HAS BILATERAL SOFT WRIST RESTRAINTS, TWO FINGER SPACE, WRISTS CDI. CALL LIGHT WITHIN EASY REACH, SAFETY MEASURES MAINTAINED, WILL CONTINUE TO MONITOR AND FOLLOW MD ORDERS.
[2016-10-09] MEDS ORDERED: IV SET PRIMARY PUMP SET 1 EA INFUS.SET MC ONE ×3 (07:33→19:26)
[2016-10-09] MEDS ORDERED: PANTOPRAZOLE 40 MG/PACK PACK ONE (07:44)
--- NOTE | 2016-10-09 08:02 | NUR ---
RN NOTES PT OFF DIPRIVAN, NOT REALLY RESPONDING OR OPENING EYES. WILL KEEP PT OFF DIP UNTIL HE BECOMES MORE RESPONSIVE. OVERALL PT IN STABLE CONDITION, NO SIGNS OF DISCOMFORT NOTED.
[2016-10-09] MEDS: PANTOPRAZOLE 40 MG/PACK PACK GT SCH (08:04)
[2016-10-09] MEDS: AMIODARONE HCL 200 MG TABLET PO SCH ×3 (08:04→16:58)
[2016-10-09] MEDS: ACIDOPHILUS/BULGARICUS 1 EACH TAB.CHEW GT SCH ×2 (08:04→16:58)
[2016-10-09] MEDS: VALPROIC ACID 250 MG/5 ML UDC GT SCH ×2 (08:04→20:36)
[2016-10-09] MEDS: ASPIRIN 81 MG TAB.CHEW GT SCH (08:04)
[2016-10-09] MEDS: ENOXAPARIN SODIUM 30 MG/0.3 ML DISP.SYRIN SQ SCH (08:05)
[2016-10-09] MEDS: MEROPENEM 1 G in IV NS 0.9% 100 ML IV SCH ×2 (08:06→20:39)
--- NOTE | 2016-10-09 08:22 | NUR ---
RN NOTES PUT PT BACK ON DIP 20 MCG, WHILE BEING SUCTIONED PT HAD FACIAL GRIMACING AND LOOKED UNCOMFORTABLE, PT IS ALSO MOVING HIS RIGHT LEG.
[2016-10-09] MEDS ORDERED: VANCOMYCIN 0.75 GM in IV D5W 250 ML IV SCH (09:00)
[2016-10-09] MEDS: PROPOFOL 100 ML IV PRN ×2 (09:35→19:39)
[2016-10-09 10:15] LABS: ABG BASE EXCESS -3.4 mmol/L; ABG OXYGEN SATURATION 97.5 % (92.0-98.5); ABG PCO2 31.3 mmHg (35.0-45.0); ABG PO2 106.2 mmHg (75.0-100.0); COHb 1.3 % (0.5-1.5); MetHb 1.2 % (0.0-1.5); O2Hb 95.1 % (94.0-97.0); PEEP,BG 5 cm H2O; SITE, ABG Right Radial; VT, ABG 550 mL
--- NOTE | 2016-10-09 11:21 | NUR ---
CARDIOLOGIST NOTE Followed up with labs re: Jaswant vegas level, 21, made pharmacy aware, held dose per level.
[2016-10-09] MEDS ORDERED: PHENYLEPHRINE 80 MG in IV D5W 250 ML IV PRN (11:30)
[2016-10-09] MEDS ORDERED: IV NS 0.9% 250 ML IV ONE (18:35)
[2016-10-09] MEDS ORDERED: IV D5W 250 ML IV ONE (19:26)
[2016-10-09] MEDS: MICAFUNGIN SODIUM 100 MG in IV NS 0.9% 100 ML IV SCH (20:13)
[2016-10-09] MEDS: VANCOMYCIN 0.75 GM in IV D5W 250 ML IV SCH (21:52)
[2016-10-10] VITALS (36 sets, daily range): BP systolic 100–151; BP diastolic 32–60
[2016-10-10] MEDS: IPRATROPIUM NEB FS 0.5 MG/2.5 ML AMPUL.NEB NEB SCH ×4 (01:43→19:50)
[2016-10-10] MEDS: ALBUTEROL FS 2.5 MG/3 ML VIAL.NEB NEB SCH ×4 (01:43→19:50)
[2016-10-10] MEDS: PROPOFOL 100 ML IV PRN (02:01)
--- NOTE | 2016-10-10 03:12 | NUR ---
PENSION MANAGER. AM CARE. ORAL CARE, BED BATH GIVEN. LINEN CHANGED. REMAINING SAME VENT SETTINGS TOLERATED WELL. SAT 98 %. NO ACUTE DISTRESS NOTED. FELTING MACHINE OPERATOR HELPER SHOWING NSR. IV LT UPPER ARM PICC LINE. DIPRIVAN 25 MCG/KG/MIN. FC PATENT. HOB [id number] GT FEEDING FIF ER SOURCE 45 ML/H. TURN AND REPOSITION Q2H. WILL CONTINUE TO MONITOR VITALS.
[2016-10-10 04:39] LABS: BASOPHILS # (AUTO) 0.1 /CMM (0.0-0.2); BASOPHILS % (AUTO) 0.5 % (0.0-2.0); EOSINOPHILS # (AUTO) 0.3 /CMM (0.0-0.7); EOSINOPHILS % (AUTO) 1.9 % (0.0-6.0); HEMATOCRIT 26 % (39-51); HEMOGLOBIN 8.4 g/dL (13.5-17.5); LYMPHOCYTES # (AUTO) 1.1 /CMM (0.8-4.8); LYMPHOCYTES % (AUTO) 8.4 % (20.0-44.0); MEAN CORPUSCULAR HEMOGLOBIN 27 PG (26.0-33.0); MEAN CORPUSCULAR HGB CONC 32 g/dl (31.0-36.0); MEAN CORPUSCULAR VOLUME 84 fL (80-96); MONOCYTES # (AUTO) 0.9 /CMM (0.1-1.30); MONOCYTES % (AUTO) 6.7 % (2.0-12.0); NEUTROPHILS # (AUTO) 10.8 /CMM (1.8-8.9); NEUTROPHILS % (AUTO) 82.5 % (43.0-81.0); PLATELET COUNT (AUTO) 180 /CMM (150-450); RDW COEFFICIENT OF VARIATION 24.4 (11.5-15.0); RED BLOOD CELL COUNT(AUTO) 3.12 MIL/uL (4.5-6.0); WHITE BLOOD COUNT (AUTO) 13.1 K/uL (4.3-11.0)
[2016-10-10 04:44] LABS: CALCIUM, SERUM 9.1 mg/dL (8.5-10.1); CREATININE 2.5 mg/dL (0.6-1.3); POTASSIUM 3.9 mmol/L (3.5-5.1)
--- NOTE | 2016-10-10 07:51 | NUR ---
INITIAL CONE TRUCKER NOTE RCVD PT SEDATED ON DIPRIVAN, PUPILS REACTIVE AND EQUAL. SR ON TELE HR 62. TOLERATING ORDERED VENT SETTINGS ETT 7.5 [address]VE[address] PL[address] DRAINING YELLOW URINE. GTUBE PLACEMENT VERIFIED. TUBE FEEDING STOPPED. RESIDUAL OF 375 ML OBTAINED. IV SITES C/D/I/PATENT. NO S/O INFILTRATION OR PHLEBITIS OBSERVED UPON FLUSHING. WILL CONTINUE TO MONITOR PT FOR SAFETY AND COMFORT. CALL LIGHT WITHIN REACH. BED IN LOW AND LOCKED POSITION.
[2016-10-10] MEDS: ENOXAPARIN SODIUM 30 MG/0.3 ML DISP.SYRIN SQ SCH (08:04)
[2016-10-10] MEDS: PANTOPRAZOLE 40 MG/PACK PACK GT SCH (08:05)
[2016-10-10] MEDS: ACIDOPHILUS/BULGARICUS 1 EACH TAB.CHEW GT SCH ×2 (08:05→17:17)
[2016-10-10] MEDS: ASPIRIN 81 MG TAB.CHEW GT SCH (08:05)
[2016-10-10] MEDS: AMIODARONE HCL 200 MG TABLET PO SCH ×3 (08:05→17:17)
[2016-10-10] MEDS: VALPROIC ACID 250 MG/5 ML UDC GT SCH ×2 (08:05→21:16)
[2016-10-10] MEDS: MEROPENEM 1 G in IV NS 0.9% 100 ML IV SCH ×2 (08:07→21:16)
--- NOTE | 2016-10-10 08:30 | NUR ---
TRAIN DIRECTOR NOTE SEDATION VACATION IMPLEMENTED PER PROTOCOL. OFF DIPRIVAN AT THIS TIME. PT VERY SEDATED, UNABLE TO OPEN EYES OR FOLLOW COMMANDS. WILL CONTINUE TO MONITOR.
--- NOTE | 2016-10-10 10:09 | NUR ---
SALES COMPENSATION ANALYST NOTE PT CONTINUES TO BE VERY SEDATED, RESPONDS TO PAINFUL STIMULI BUT UNABLE TO OPEN EYES/FOLLOW COMMANDS AT THIS TIME. WILL CONTINUE TO MONITOR.
--- NOTE | 2016-10-10 11:00 | NUR ---
SLEDGER NOTE BILATERAL SOFT WRISTS RESTRAINTS IN PLACE, PT OFF DIPRIVAN, DOES NOT FOLLOW COMMANDS OR OPEN EYES AT THIS TIME. WILL CONTINUE TO MONITOR.
--- NOTE | 2016-10-10 11:06 | NUR ---
LABOR ARBITRATOR HEARING OFFICE NOTE DR. CONTRERAS AT BEDSIDE INFORMED HIM THAT PT'S HAS BEEN OFF DIPRIVAN AND STILL VERY SEDATED. NO WEANING RECOMMENDED AT THIS TIME. DR ZA NOYOLA EARLIER IN THE DAY INFORMED HIM OF PT'S HIGH RESIDUAL. ACKNOWLEDGED NO NEW ORDERS RCVD.
--- NOTE | 2016-10-10 12:44 | NUR ---
HHAS NOTE DR. ESCOBAR IN UNIT INFORMED HIM OF PT'S INCREASED RESIDUAL THIS AM, RCVD ORDER FOR REGLAN 10MG BID. ENTERED AND ACKNOWLEDGED. PT'S RESIDUAL WAS RE-ASSESSED 75ML. PER DR. ESCOBAR CONTINUE SAME RATE OF 45ML/HR. WILL CONTINUE TO MONITOR.
[2016-10-10] MEDS ORDERED: METOCLOPRAMIDE HCL 10 MG/2 ML VIAL IV PRN (17:00)
[2016-10-10] MEDS: FIBERSOURCE HN 1,000 ML BOTTLE GT PRN (17:16)
[2016-10-10] MEDS: METOCLOPRAMIDE HCL 10 MG/2 ML VIAL IV SCH (17:17)
[2016-10-10] MEDS ORDERED: IV NS 0.9% 250 ML IV ONE (18:30)
--- NOTE | 2016-10-10 18:43 | NUR ---
ENDING TELEVISION INSPECTOR NOTE PT UNDER THE EFFECTS OF SEDATION, OPENS EYES WHEN REPOSITIONED, DOESN'T FOLLOW COMMANDS. SR ON TELE. TOLERATING ORDERED VENT SETTINGS. ETT 7.5 24 AT LIP. SILVEIRA DRAINING YELLOW URINE. FAIRLY TOLERATING TUBE FEEDING LAST RESIDUAL 60 ML. REGLAN ON BOARD. IV SITES C/D/I/PATENT. NO S/O INFILTRATION OR PHLEBITIS OBSERVED UPON FLUSHING. CALL LIGHT WITHIN REACH. BED IN LOW AND LOCKED POSITION. PT'S CARE WILL BE ENDORSED TO ARTILLERY MAINTENANCE SUPERVISOR RN FOR CONTINUITY OF CARE.
--- NOTE | 2016-10-10 20:47 | NUR ---
PT RECEIVED INTUBATED WITH 7.5 ETT SECURED AT 24CM AT THE LIP. NO DISTRESS. PT TOLERATING VENT SETTINGS. SX'D FOR MOD AMT OF THICK PALE SECRETIONS. VENT ALARMS SET AND AUDIBLE. MATIAS RANGEL AT [facility]. WILL CONTINUE TO MONITOR. Addendum: 10/10/16 at 2047 by SHA ROSE RT Amended: Links added.
[2016-10-10] MEDS: TEMAZEPAM 7.5 MG CAPSULE GT SCH ×2 (20:58→22:00)
[2016-10-10] MEDS: MICAFUNGIN SODIUM 100 MG in IV NS 0.9% 100 ML IV SCH (21:16)
[2016-10-10] MEDS ORDERED: SECONDARY IV SET 1 EA INFUS.SET MC ONE (22:30)
[2016-10-11] VITALS (36 sets, daily range): BP systolic 124–161; BP diastolic 37–55
[2016-10-11] MEDS: ALBUTEROL FS 2.5 MG/3 ML VIAL.NEB NEB SCH ×4 (01:41→20:14)
[2016-10-11] MEDS: IPRATROPIUM NEB FS 0.5 MG/2.5 ML AMPUL.NEB NEB SCH ×4 (01:41→20:14)
[2016-10-11 04:56] LABS: BASOPHILS % (AUTO) 0.3 % (0.0-2.0); EOSINOPHILS # (AUTO) 0.2 /CMM (0.0-0.7); EOSINOPHILS % (AUTO) 1.1 % (0.0-6.0); HEMATOCRIT 26 % (39-51); HEMOGLOBIN 8.4 g/dL (13.5-17.5); LYMPHOCYTES % (AUTO) 6.8 % (20.0-44.0); MEAN CORPUSCULAR HEMOGLOBIN 27 PG (26.0-33.0); MEAN CORPUSCULAR HGB CONC 32 g/dl (31.0-36.0); MEAN CORPUSCULAR VOLUME 84 fL (80-96); MONOCYTES % (AUTO) 7.1 % (2.0-12.0); NEUTROPHILS % (AUTO) 84.7 % (43.0-81.0); PLATELET COUNT (AUTO) 183 /CMM (150-450); RDW COEFFICIENT OF VARIATION 26.8 (11.5-15.0); RED BLOOD CELL COUNT(AUTO) 3.14 MIL/uL (4.5-6.0); WHITE BLOOD COUNT (AUTO) 14.1 K/uL (4.3-11.0)
--- NOTE | 2016-10-11 05:00 | NUR ---
FELT PAD CUTTER - REC'D PT. LETHARGIC & PT. REMAINED LETHARGIC THROUGH OUT THE NIGHT. PT. RESPONDS TO TACTILE STIMULUS. DIPRIVAN GTT. HAS BEEN OFF SINCE 8:30 AM. YESTERDAY MORNING. PT. REC'D A COMPLETE BEDBATH AT 5AM W/ORAL,VENT,PEG/JESUS & WOUND/SKIN CARE ADMINISTERED. SKIN PICTURES WERE TAKEN OF PT'S SACRUM & LEFT EAR DTI. NOTED. HR REMAINS IN SR (PT. CARDIOVERTED 10/05/16). FIBERSOURCE TF INFUSING AT 45 CC/HR. NO RESIDUALS NOTED. PT. HAS BILAT. SOFT WRIST RESTRAINTS PER SAFETY PROTOCOL. INTUBATED & PEGGED. ALL PORTS TO MIDLINE,PICC LINE & PIV ARE PATENT TO FLUSH. SILVEIRA CATH TO GRAVITY. 350CC EXPELLED FOR THIS 12 HR. SHIFT. CONT. POC.
[2016-10-11 05:26] LABS: ALBUMIN 1.7 g/dL (3.4-5.0); BILIRUBIN,TOTAL 0.9 mg/dL (0.2-1.0); CREATININE 2.4 mg/dL (0.6-1.3); PHOSPHORUS 3.5 mg/dL (2.5-4.9); POTASSIUM 4.2 mmol/L (3.5-5.1)
--- NOTE | 2016-10-11 07:15 | NUR ---
ICU/RN: PT RECEIVED IN BED, INTUBATED ETT 7.5 @ 24 LIP LINE; VENT SET TO AC 20 TV 550, FIO2 35% PEEP 5, TOLERATING WELL, AIRWAY SUCTIONED FOR CLEARANCE, HOB ELEVATED, ORAL CARE RENDERED. PT LETHARGIC OFF SEDATION FOR >24 HOURS, RESPONDS TO NOXIOUS STIMULI WITH PURPOSEFUL MOVEMENTS. DOES NOT FOLLOW COMMANDS. TOLERATING GTF WITH 40CC RESIDUAL, NO N/V NOTED OR REPORTED FROM PREVIOUS SHIFT. PT NOTED WITH POSSIBLE DTI ON L EAR, WOUND CARE CONSULT REQUESTED, PT TURNED AND OFFLOADED PER SKIN PROTECTION PROTOCOL. ALARM SOUNDS CHECKED AND AUDIBLE. WILL CONT TO MONITOR STATUS.
[2016-10-11] MEDS ORDERED: FUROSEMIDE 100 MG/10 ML VIAL IV SCH (07:41)
[2016-10-11] MEDS: VANCOMYCIN 0.75 GM in IV D5W 250 ML IV SCH (08:17)
[2016-10-11] MEDS: ENOXAPARIN SODIUM 30 MG/0.3 ML DISP.SYRIN SQ SCH (08:18)
[2016-10-11] MEDS: VALPROIC ACID 250 MG/5 ML UDC GT SCH ×2 (08:18→20:19)
[2016-10-11] MEDS: PANTOPRAZOLE 40 MG/PACK PACK GT SCH (08:18)
[2016-10-11] MEDS: ASPIRIN 81 MG TAB.CHEW GT SCH (08:18)
[2016-10-11] MEDS: ACIDOPHILUS/BULGARICUS 1 EACH TAB.CHEW GT SCH ×2 (08:18→16:08)
[2016-10-11] MEDS: METOCLOPRAMIDE HCL 10 MG/2 ML VIAL IV SCH ×2 (08:18→16:08)
[2016-10-11] MEDS: AMIODARONE HCL 200 MG TABLET PO SCH ×3 (08:19→16:08)
[2016-10-11 08:30] LABS: ABG BASE EXCESS -2.7 mmol/L; ABG OXYGEN SATURATION 98.1 % (92.0-98.5); ABG PCO2 29.1 mmHg (35.0-45.0); ABG PH 7.462 (7.350-7.450); ABG PO2 145.8 mmHg (75.0-100.0); ABG TOTAL HEMOGLOBIN 9.5 G/dL (13.5-18.0); AaDO2 69.9 mmHg; COHb 0.4 % (0.5-1.5); MetHb 1.1 % (0.0-1.5); O2Hb 96.6 % (94.0-97.0); PEEP,BG 5 cm H2O; SITE, ABG Right Radial; VT, ABG 550 mL
--- NOTE | 2016-10-11 09:00 | NUR ---
ICU/RN: DR KAYLA DONALDSON; UPDATED ON PT STATUS, ABN LABS SARAH TAYLOR. NO NEW ORDERS RECEIVED.
[2016-10-11] MEDS: FIBERSOURCE HN 1,000 ML BOTTLE GT PRN (09:45)
[2016-10-11] MEDS: MEROPENEM 1 G in IV NS 0.9% 100 ML IV SCH ×2 (09:45→21:52)
--- NOTE | 2016-10-11 10:35 | NUR ---
ICU/RN: DR ESCOBAR AT THE BEDSIDE; PT TOLERATING CURRENT TF; WITH 40 CC RESIDUAL NOTED. NO NEW ORDERS.
--- NOTE | 2016-10-11 15:00 | NUR ---
ICU/RN: BED BATH, HYGIENIC CARE RENDERED. POSSIBLE DTI NOTED ON SACRUM, APPLIED MEPILEX AND TURNED AND REPOSITIONED PER PROTOCOL. AWAITING WOUND CARE CONSULT.
[2016-10-11] MEDS: Z GUARD REMEDY 2 OZ OINT TP PRN (16:09)
--- NOTE | 2016-10-11 18:19 | NUR ---
RT END OF THE SHIFT REPORT: PT. 81 Y OLD MALE REMAIN ORALLY INTUBATED ETT#7.5@24CM ON VENT WITH NOTED SETTINGS, ALARMS ARE SET AND FUNCTIONAL, B/S RALES/RHONCHI BILATERALLY SUX' FOR MINIMAL SWEET SECRETIONS, NO DISTRESS NOTED T/O SHIFT NO CHANGES T/O SHIFT. CONTINUED FOR MONITOR. VENT PLUGGED INTO RED OUTLET. EQUAL CHEST RISE NOTED PT. HME CHANGED, AMBU BAG REMAIN AT THE BEDSIDE. REPORT WILL PASS TO PM SHIFT. Addendum: 10/11/16 at 1821 by SOFY THOMPSON RT Amended: Links added.
[2016-10-11] MEDS ORDERED: IV NS 0.9% 250 ML IV ONE (20:08)
[2016-10-11] MEDS: MICAFUNGIN SODIUM 100 MG in IV NS 0.9% 100 ML IV SCH (20:19)
--- NOTE | 2016-10-11 20:30 | NUR ---
FREEZER PERSON NON-ADMINISTERED BAG OF NS 250 ML . NS USED TKO.
--- NOTE | 2016-10-11 21:42 | NUR ---
PT REC'D INTUBATED WITH 7.5 ETT @ 24CM AT THE LIP. PT IS AWAKE. PT ON VENT SETTINGS CHARTED. SX'D MOD BLOOD TINGED SECRETIONS. VENT ALARMS SET AND AUDIBLE. AMBU BAG BEDSIDE. VENT IS PLUGGED IN RED OUTLET. WILL CONTINUE TO MONITOR. Addendum: 10/11/16 at 2142 by ANA LAURA URBINA RT Amended: Links added.
[2016-10-11] MEDS: TEMAZEPAM 7.5 MG CAPSULE GT SCH (21:54)
--- NOTE | 2016-10-11 22:17 | NUR ---
GEOTECHNICAL INTERN PT OPENS EYES AND IS COUGHING . PT DOES NOT COMMUNICATE NOR FOLLOW COMMANDS. PRESCRIBED RESTORIL GIVEN FOR SLEEP .
--- NOTE | 2016-10-11 23:30 | NUR ---
BLOCK CAPTAIN PT IS SHOWING FACIAL GRIMACES AFTER REPOSITIONING. PRN NORCO GIVEN .
[2016-10-11] MEDS: HYDROCODONE/APAP 5/325MG 1 EACH TABLET GT PRN (23:32)
[2016-10-12] VITALS (35 sets, daily range): BP systolic 119–159; BP diastolic 42–60
[2016-10-12] MEDS: IPRATROPIUM NEB FS 0.5 MG/2.5 ML AMPUL.NEB NEB SCH ×4 (01:50→20:27)
[2016-10-12] MEDS: ALBUTEROL FS 2.5 MG/3 ML VIAL.NEB NEB SCH ×4 (01:50→20:27)
[2016-10-12 05:27] LABS: POTASSIUM 4.7 mmol/L (3.5-5.1)
[2016-10-12 05:28] LABS: ALBUMIN 1.7 g/dL (3.4-5.0); BILIRUBIN,TOTAL 0.9 mg/dL (0.2-1.0); CALCIUM, SERUM 9.1 mg/dL (8.5-10.1); CREATININE 2.3 mg/dL (0.6-1.3); MAGNESIUM 2.1 mg/dL (1.8-2.4); PHOSPHORUS 3.6 mg/dL (2.5-4.9); TOTAL PROTEIN, SERUM 5.3 g/dL (6.4-8.2)
--- NOTE | 2016-10-12 07:10 | NUR ---
RN INITIAL NOTES RECEIVED PT ET IN PLACE. ON [facility] VENT WITH FF SETTINGS: AC20, TV550, FI02 35%, PEEP +5. NO RESPIRATORY DISTRESS NOTED. NO SOB NOTED. NO SIGNS OF PAIN NOTED. IV LINES IN PLACE. GT IN PLACE. ON GTF, WILL MONITOR FOR RESIDUAL. FC IN PLACE. NO SEDIMENTS NOR HEMATURIA NOTED. BLE ELEVATED. PT COMFORTABLE. WILL CONTINUE TO MONITOR.
--- NOTE | 2016-10-12 07:59 | NUR ---
WOUND CARE CONSULT: PT PRESENTS WITH GENERALIZED EDEMA WHICH IS PITTING (4+) ON HANDS AND FEET. PT IMMOBILE, INTUBATED. PT NOTED TO HAVE SUSPECTED DEEP TISSUE INJURY TO LEFT EAR AND DEEP TISSUE INJURY IN EVOLUTION TO SACRUM. ALL SKIN PROTECTION AND WOUND RECOMMENDATIONS DISCUSSED WITH NURSING STAFF. PT ON FIRST STEP MATTRESS. PT TO BE TURNED AND REPOSITIONED EVERY 2 HRS PT CONDITION PERMITS, HEELS FLOATED. MD IN AGREEMENT WITH PLAN OF CARE. Addendum: 10/12/16 at 0803 by JULIANNE RODRIGUES WNDNU Amended: Links added.
--- NOTE | 2016-10-12 08:00 | NUR ---
RN NOTES SEEN AND EXAMINED BY JULIANNE WOUND NURSE. REASSESSED SACRAL AREA AND LEFT EAR. TX ORDERS NOTED AND CARRIED OUT. KEPT BLE ELEVATED. WILL REPOSITION Q2. WILL KEEP CLEAN AND DRY. WILL MONITOR FOR CHANGES
[2016-10-12] MEDS: ASPIRIN 81 MG TAB.CHEW GT SCH (08:18)
[2016-10-12] MEDS: PANTOPRAZOLE 40 MG/PACK PACK GT SCH (08:18)
[2016-10-12] MEDS: METOCLOPRAMIDE HCL 10 MG/2 ML VIAL IV SCH ×2 (08:18→16:21)
[2016-10-12] MEDS: ACIDOPHILUS/BULGARICUS 1 EACH TAB.CHEW GT SCH ×2 (08:18→16:21)
[2016-10-12] MEDS: VALPROIC ACID 250 MG/5 ML UDC GT SCH ×2 (08:18→20:27)
[2016-10-12 08:19] LABS: ABG PCO2 30.7 mmHg (35.0-45.0); ABG PH 7.475 (7.350-7.450); ABG PO2 199.5 mmHg (75.0-100.0); ABG TOTAL HEMOGLOBIN 8.9 G/dL (13.5-18.0); AaDO2 14.4 mmHg; COHb 1.4 % (0.5-1.5); O2Hb 96.6 % (94.0-97.0); PEEP,BG 5 cm H2O; SITE, ABG Right Radial; VT, ABG 550 mL
[2016-10-12] MEDS: MEROPENEM 1 G in IV NS 0.9% 100 ML IV SCH ×2 (08:19→21:20)
[2016-10-12] MEDS: AMIODARONE HCL 200 MG TABLET PO SCH ×3 (08:19→16:21)
[2016-10-12] MEDS: ENOXAPARIN SODIUM 30 MG/0.3 ML DISP.SYRIN SQ SCH (08:21)
--- NOTE | 2016-10-12 11:00 | NUR ---
RN NOTES SEEN AND EXAMINED BY DR. CORTES. AWARE OF LAB AND CXR RESULT. MD UPDATED ON SKIN ISSUES, TX ORDERED. MD ALSO AWARE OF GTF RESIDUALS, USUALLY 100-200ML. ON REGLAN. NO NEW ORDER MADE.
[2016-10-12] MEDS: FIBERSOURCE HN 1,000 ML BOTTLE GT PRN (11:42)
--- NOTE | 2016-10-12 11:55 | NUR ---
RN NOTES SEEN AND EXAMINED BY DR. ESCOBAR . AWARE PT ON GTF AT 45ML/HR. RESIDUAL BET 100-200ML. ON REGLAN. NO NEW ORDER.
--- NOTE | 2016-10-12 15:50 | NUR ---
RN NOTES SEEN AND EXAMINED BY DR. MORALES. PT TOLERATING VENT WELL. REMAINS INTUBATED. NO RESPIRATORY DISTRESS NOTED. NO SOB NOTED. NO SIGNS OF PAIN NOTED. KEPT HOB ELEVATED. PT OPENS EYES, NO TRACKING NOTED. PER MD, PT NOT READY FOR WEANING. WILL CONTINUE TO MONITOR.
[2016-10-12] MEDS ORDERED: HYDROGEL DRESSING 90 GM TUBE TP PRN (16:00)
--- NOTE | 2016-10-12 17:31 | NUR ---
RT END OF THE SHIFT REPORT: PT. 81 Y OLD FEMALE REMAIN ORALLY INTUBATED ETT#7.5 @ 24 CM ON VENT WITH NOTED SETTINGS, ALARMS ARE SET AND FUNCTIONAL, B/S RALES/RHONCHI BILATERALLY SUX' FOR MINIMAL TANNISH SECRETIONS, NO DISTRESS NOTED T/O SHIFT CONTINUED FOR MONITOR. VENT PLUGGED INTO RED OUTLET. TX'S GIVEN INLINE AND NO ADVERSE REACTION NOTED. EQUAL CHEST RISE NOTED. HME CHANGED, AMBU BAG REMAIN AT THE BEDSIDE. PT. REMAIN STABLE. REPORT WILL BE PASS TO PM SHIFT. Addendum: 10/12/16 at 1732 by SOFY THOMPSON RT Amended: Links added.
--- NOTE | 2016-10-12 18:39 | NUR ---
RN CLOSING NOTES PT REMAINS INTUBATED. TOLERATING VENT WELL. NO RESPIRATORY DISTRESS NOTED. NO SOB NOTED. NO SIGNS OF PAIN NOTED. KEPT HOB ELEVATED. IV LINES IN PLACE. GT IN PLACE. ON GTF, RESIDUAL CLOSELY MONITORED. FC IN PLACE. TX PROVIDED ORDERED. KEPT CLEAN AND DRY. REPOSITIONED Q2. KEPT BLE ELEVATED. KEPT COMFORTABLE. WILL ENDORSE FOR CONTINUITY OF CARE.
--- NOTE | 2016-10-12 20:00 | NUR ---
MOTOR VEHICLE OR CARAVAN SALESPERSON TEMP OF 99.9 NOTED. COOLING MEASURES DONE TO TRY TO REDUCE TEMP. FAN PLACED IN ROOM . WILL CON TO MONITOR
[2016-10-12] MEDS: HYDROCODONE/APAP 5/325MG 1 EACH TABLET GT PRN (20:27)
[2016-10-12] MEDS: MICAFUNGIN SODIUM 100 MG in IV NS 0.9% 100 ML IV SCH (20:29)
--- NOTE | 2016-10-12 20:30 | NUR ---
DAIRY HUSBANDRY TEACHER PT NOTED TO BE IN PAIN. FREQUENT FACIAL GRIMACING NOTED. REPOSITIONED PT FOR COMFORT. PT IS STILL SHOWING SIGNS OF PAIN . PRN NORCO GIVEN.
--- NOTE | 2016-10-12 20:43 | NUR ---
PT RECEIVED ON VENT VIA ETT, SETTINGS CHARTED AMBU BAG AT BEDSIDE ALARMS SET AND AUDIBLE SUCTIONED A SMALL AMOUNT OF THICK WHITE SECRETIONS BREATH SOUNDS EQUAL BILATERAL COARSE PT RECEIVING ALBUTEROL AND ATROVENT Q6 Addendum: 10/12/16 at 2043 by MEÑO LOPEZ RT Amended: Links added.
[2016-10-12] MEDS: TEMAZEPAM 7.5 MG CAPSULE GT SCH (22:00)
[2016-10-12] MEDS: VANCOMYCIN 0.75 GM in IV D5W 250 ML IV SCH (22:18)
[2016-10-12] MEDS ORDERED: IV NS 0.9% 250 ML IV ONE (23:05)
--- NOTE | 2016-10-12 23:11 | NUR ---
CONSUMER EDUCATOR NON-ADMINISTERED NS 250 ML , USED FOR TKO.
[2016-10-13] VITALS (37 sets, daily range): BP systolic 100–164; BP diastolic 35–61
[2016-10-13] MEDS: HYDROCODONE/APAP 5/325MG 1 EACH TABLET GT PRN ×2 (00:19→17:02)
--- NOTE | 2016-10-13 00:30 | NUR ---
HIGH ENERGY FORMING EQUIPMENT OPERATOR PT NOTED TO BE IN PAIN. FREQUENT FACIAL GRIMACING NOTED. REPOSITIONED PT FOR COMFORT. PT IS STILL SHOWING SIGNS OF PAIN . PRN NORCO GIVEN.
--- NOTE | 2016-10-13 00:40 | NUR ---
CUSTODIAN BLOOD BANK PTS GT RISIDUAL NOTED TO BE 360 ML DARK GREEN IN COLOR. HOB ELEVATED. WILL STOP TUBE FEEDING FOR TWO HOURS PER MD ORDER AND GIVE PRN REGLAN ORDERED FOR HIGH RESIDUALS. WILL CONT TO MONITOR RESIDUALS
[2016-10-13] MEDS: TEMAZEPAM 7.5 MG CAPSULE GT SCH ×2 (01:16→21:11)
--- NOTE | 2016-10-13 01:19 | NUR ---
ADVANCE AGENT PT IS RESTLESS AND MOVING HEAD BACK AND FORTH. PT IS ALSO OPENING EYES BUT IS NOT RESPONDING TO ANY QUESTIONS W EITHER VERBAL OR NON VERBAL RESPONSES . PT DOES NOT FOLLOW COMMANDS. SCHEDULED RESTORIL GIVEN FOR SLEEP.
[2016-10-13] MEDS: ALBUTEROL FS 2.5 MG/3 ML VIAL.NEB NEB SCH ×4 (02:16→19:34)
[2016-10-13] MEDS: IPRATROPIUM NEB FS 0.5 MG/2.5 ML AMPUL.NEB NEB SCH ×4 (02:16→19:34)
--- NOTE | 2016-10-13 02:40 | NUR ---
ORTHOPEDIC BRACE MAKER PT IS MORE CALM NOW AND RESTING NOW. GT RESIDUAL RECHECKED AND IS NOW 140 ML DARK GREEN . WILL RESTART FEEDING AND CONTINUE TO MONITOR RESIDUALS.
[2016-10-13 04:49] LABS: CREATININE 2.3 mg/dL (0.6-1.3); POTASSIUM 5.2 mmol/L (3.5-5.1)
[2016-10-13] MEDS ORDERED: BUMETANIDE INJ 8 MG in IV NS 0.9% 48 ML IV ONE (06:30)
--- NOTE | 2016-10-13 07:10 | NUR ---
RN INITIAL NOTES RECEIVED PT INTUBATED, ON MECH VENT. NO RESPIRATORY DISTRESS NOTED. NO SIGNS OF PAIN NOTED. HOB ELEVATED. OPEN EYES IV LINES IN PLACE. GT IN PLACE. ON GTF, WILL CLOSELY MONITOR RESIDUALS. FC IN PLACE. NO HEMATURIA NOTED. BLE ELEVATED. WILL CLOSELY MONITOR.
[2016-10-13] MEDS ORDERED: IV SET PRIMARY PUMP SET 1 EA INFUS.SET MC ONE (07:23)
[2016-10-13] MEDS: VALPROIC ACID 250 MG/5 ML UDC GT SCH ×2 (08:16→21:10)
[2016-10-13] MEDS: METOCLOPRAMIDE HCL 10 MG/2 ML VIAL IV SCH ×2 (08:16→16:17)
[2016-10-13] MEDS: ASPIRIN 81 MG TAB.CHEW GT SCH (08:16)
[2016-10-13] MEDS: PANTOPRAZOLE 40 MG/PACK PACK GT SCH (08:16)
[2016-10-13] MEDS: ACIDOPHILUS/BULGARICUS 1 EACH TAB.CHEW GT SCH ×2 (08:16→16:17)
[2016-10-13] MEDS: MEROPENEM 1 G in IV NS 0.9% 100 ML IV SCH (08:16)
[2016-10-13] MEDS: AMIODARONE HCL 200 MG TABLET PO SCH ×3 (08:16→16:16)
[2016-10-13] MEDS: ENOXAPARIN SODIUM 30 MG/0.3 ML DISP.SYRIN SQ SCH (08:17)
--- NOTE | 2016-10-13 08:30 | NUR ---
RN NOTES GT RESIDUAL CHECKED, 240ML PRIOR MED ADMINISTRATION. GT IN PLACE. HELD GTF. WILL RECHECK AFTER 1HR. Addendum: 10/13/16 at 1021 by MOLLY RANDLE RN 0930 RESIDUAL RECHECKED, 50ML. GTF RESTARTED. WILL CONTINUE TO MONITOR.
[2016-10-13 09:21] LABS: ABG BASE EXCESS -3.6 mmol/L; ABG PCO2 29.7 mmHg (35.0-45.0); ABG PH 7.445 (7.350-7.450); ABG PO2 132.9 mmHg (75.0-100.0); ABG TOTAL HEMOGLOBIN 7.6 G/dL (13.5-18.0); AaDO2 82.1 mmHg; COHb 1.3 % (0.5-1.5); MetHb 1.3 % (0.0-1.5); O2Hb 95.5 % (94.0-97.0); PEEP,BG 5 cm H2O; SITE, ABG Right Radial; VT, ABG 550 mL
--- NOTE | 2016-10-13 09:30 | NUR ---
RN NOTES ABG DONE. RESULT RELAYED TO DR MORALES. FI02 TITRATED TO 30%. NO RESPIRATORY DISTRESS NOTED. WILL MONITOR.
--- NOTE | 2016-10-13 09:30 | NUR ---
RN NOTES SEEN AND EXAMINED BY DR. CHASITY LAL. AWARE OF CURRENT LAB AND CXR RESULT. NNO
--- NOTE | 2016-10-13 10:20 | NUR ---
RN NOTES SEEN AND EXAMINED BY DR. MORALES. PT STILL INTUBATED. ON MECH VENT. NO RESPIRATORY DISTRESS NOTED. NO CHANGE IN LOC NOTED. OPEN EYES FROM PAINFUL STIMULI. NO NEW ORDER MADE
--- NOTE | 2016-10-13 11:15 | NUR ---
RN NOTES SEEN AND EXAMINED BY DR. CORTES. AWARE OF CURRENT LAB AND CXR RESULT. SODIUM 144, POTASSIUM 5.2, BUN 70, CREA 2.3. ON BUMEX PER DR. CINTRON. MD AWARE OF HIGH RESIDUALS, HELD GTF FOR 1HR THIS AM FOR 240ML RESIDUAL AND RECHECKED AFTER 1HR, 50ML, GTF RESTARTED. MD ORDERED DIETARY CONSULT. NOTED AND CARRIED OUT. MD CALLED ANA LAURA ([facility]) #[phone] AND DISCUSSED PLAN OF CARE OVER THE PHONE.
[2016-10-13] MEDS: FIBERSOURCE HN 1,000 ML BOTTLE GT PRN (11:50)
[2016-10-13] MEDS: ALBUMIN 25% 25 GM in PREMIX 1 EA IV SCH ×2 (11:56→23:30)
--- NOTE | 2016-10-13 12:26 | NUR ---
PATIENT RECEIVED ORALLY INTUBATED WITH 7.5 ETT SECURED AT 25 CM MID LIP LINE [facility]. ALARMS VERIFIED AND AUDIBLE. SUCTIONED AND LAVAGED MODERATE AMOUNT OF THICK CLEAR/WHITE SECRETIONS. BILAT B/S NOTED. VENT PLUGGED INTO RED OUT. AMBU BAG AT [facility].
--- NOTE | 2016-10-13 17:45 | NUR ---
RN NOTES PT NOTED ON A.FIB, HR 110S. GIVEN AMIO 400MG TAB ORDERED. NO CARDIAC DISTRESS NOTED. NOTIFIED DR. CINTRON, NO NEW ORDER MADE. WILL MONITOR.
--- NOTE | 2016-10-13 18:38 | NUR ---
RN CLOSING NOTES PT REMAINS INTUBATED, TOLERATES VENT. NO RESPIRATORY DISTRESS NOTED. NO SIGNS OF PAIN NOTED. REMAINS ON A.FIB, DR. CINTRON AWARE, NNO. IV LINES IN PLACE. GT INTACT.ON GTF, STILL WITH RESIDUAL. FC IN PLACE. TX PROVIDED ORDERED. KEPT CLEAN AND DRY. REPOSITIONED Q2. KEPT BLE ELEVATED. WILL ENDORSE FOR CONTINUITY OF CARE.
--- NOTE | 2016-10-13 19:30 | NUR ---
PROFESSOR OF ARCHAEOLOGY INITIAL NOTE RCD PT W/DX PNA, RESP FAIL; PT IS NON RESPONSIVE ONLY RESPONDS TO PAINFUL STIMULI. INTUBATED 7.5 @ 21 W.VENT SETTINGS AC 20 550 30% +5; THIN WHITE SECRETIONS NOTED. AFIB ON MONITOR. SILVEIRA CATHETER DRAINING LARGE AMOUNT OF YELLOW URINE. BL SOFT WRIST RESTRAINTS IN PLACE FOR PT SAFETY. GTUBE WITH FIBERSOURCE AT 40 ML/HR HIGH RESIDUALS AT THIS TIME; HOLD TUBE FEEDING PER ORDER. FNS AND NEUROLOGY CONSULT PENDING. HOB ELEVATED AND BED LOCKED IN LOW POSITION. CONTINUE TO MONITOR NEEDED.
[2016-10-13] MEDS: MICAFUNGIN SODIUM 100 MG in IV NS 0.9% 100 ML IV SCH (20:16)
[2016-10-13] MEDS: MEROPENEM 500 MG in IV NS 0.9% 50 ML IV SCH ×2 (21:10→21:20)
[2016-10-13] MEDS ORDERED: IV NS 0.9% 250 ML IV ONE (23:24)
[2016-10-13] MEDS: IV NS 0.9% 250 ML IV PRN (23:30)
[2016-10-14] VITALS (41 sets, daily range): BP systolic 105–167; BP diastolic 48–65
[2016-10-14] MEDS: ALBUTEROL FS 2.5 MG/3 ML VIAL.NEB NEB SCH ×4 (01:57→19:57)
[2016-10-14] MEDS: IPRATROPIUM NEB FS 0.5 MG/2.5 ML AMPUL.NEB NEB SCH ×4 (01:57→19:57)
[2016-10-14 05:29] LABS: ALBUMIN 2.3 g/dL (3.4-5.0); BILIRUBIN,TOTAL 0.8 mg/dL (0.2-1.0); CALCIUM, SERUM 9.2 mg/dL (8.5-10.1); CREATININE 2.3 mg/dL (0.6-1.3); MAGNESIUM 2.5 mg/dL (1.8-2.4); PHOSPHORUS 4.6 mg/dL (2.5-4.9); POTASSIUM 4.8 mmol/L (3.5-5.1); TOTAL PROTEIN, SERUM 5.5 g/dL (6.4-8.2)
[2016-10-14 06:28] LABS: BASOPHILS # (AUTO) 0.1 /CMM (0.0-0.2); BASOPHILS % (AUTO) 0.7 % (0.0-2.0); EOSINOPHILS # (AUTO) 0.1 /CMM (0.0-0.7); EOSINOPHILS % (AUTO) 0.6 % (0.0-6.0); LYMPHOCYTES # (AUTO) 1.3 /CMM (0.8-4.8); LYMPHOCYTES % (AUTO) 8.1 % (20.0-44.0); MEAN CORPUSCULAR HEMOGLOBIN 27 PG (26.0-33.0); MEAN CORPUSCULAR HGB CONC 32 g/dl (31.0-36.0); MEAN CORPUSCULAR VOLUME 86 fL (80-96); MONOCYTES # (AUTO) 1.2 /CMM (0.1-1.30); MONOCYTES % (AUTO) 7.6 % (2.0-12.0); NEUTROPHILS # (AUTO) 12.7 /CMM (1.8-8.9); PLATELET COUNT (AUTO) 211 /CMM (150-450); RDW COEFFICIENT OF VARIATION 28.5 (11.5-15.0); RED BLOOD CELL COUNT(AUTO) 2.36 MIL/uL (4.5-6.0); WHITE BLOOD COUNT (AUTO) 15.4 K/uL (4.3-11.0)
[2016-10-14 06:35] LABS: HEMATOCRIT 20 % (39-51); HEMOGLOBIN 6.4 g/dL (13.5-17.5)
--- NOTE | 2016-10-14 06:50 | NUR ---
MASTER SHEET CLERK CALL PLACE TO VIOLET PRITCHETT TO OBTAIN CONSENT FOR BLOOD TRANSFUSION. NO ANSWER AT THIS TIME. WILL ENDORSE TO NEXT SHIFT.
--- NOTE | 2016-10-14 07:10 | NUR ---
RN INITIAL NOTES PT INTUBATED, ON MECH VENT. NO RESPIRATORY DISTRESS NOTED. NO SOB NOTED. NO SIGNS OF PAIN NOTED. IV LINES IN PLACE. BILATERAL WRIST RESTRAINTS ON. NO CIRCULATORY IMPAIRMENT NOTED. GOOD CAPILLARY REFILL NOTED. GT INTACT. ON GTF, WILL MONITOR RESIDUALS. FC IN PLACE. NO HEMATURIA NOTED. BLE ELEVATED. PT COMFORTABLE. WILL CONTINUE TO MONITOR.
[2016-10-14 07:27] LABS: ANISOCYTOSIS 1+; BAND % (MANUAL) 1 % (0.0-5.0); LYMPHOCYTES % (MANUAL) 9 % (16-48); MONOCYTES % (MANUAL) 4 % (0-11.0); NEUTROPHILS % (MANUAL) 86 (42-76); PLATELET ESTIMATE ADEQUATE
--- NOTE | 2016-10-14 07:30 | NUR ---
RN NOTES CALLED ANA LAURA ([facility]) #[phone] FOR BLOOD TRANSFUSION CONSENT. LEFT A MESSAGE. AWAITING CALL BACK.
[2016-10-14] MEDS ORDERED: SECONDARY IV SET 1 EA INFUS.SET MC ONE ×2 (08:23→20:02)
[2016-10-14] MEDS: METOCLOPRAMIDE HCL 10 MG/2 ML VIAL IV SCH ×2 (08:30→16:28)
[2016-10-14] MEDS: PANTOPRAZOLE 40 MG/PACK PACK GT SCH (08:30)
[2016-10-14] MEDS: AMIODARONE HCL 200 MG TABLET PO SCH ×3 (08:30→16:28)
[2016-10-14] MEDS: ASPIRIN 81 MG TAB.CHEW GT SCH (08:30)
[2016-10-14] MEDS: VALPROIC ACID 250 MG/5 ML UDC GT SCH ×2 (08:30→21:02)
[2016-10-14] MEDS: ACIDOPHILUS/BULGARICUS 1 EACH TAB.CHEW GT SCH ×2 (08:30→16:29)
[2016-10-14] MEDS: MEROPENEM 500 MG in IV NS 0.9% 50 ML IV SCH ×2 (08:31→21:02)
--- NOTE | 2016-10-14 08:31 | NUR ---
PT REC'D INTUBATED VIA 7.5 ETT AT 24CM AT THE LIP. BS BILAT. EQUAL AND COARSE. ETT WILL SHIFTED TO PREVENT PRESSURE ULCERS THROUGHOUT THE SHIFT. ABG PENDING. SX'D THICK CLEAR/WHITE SECRETIONS FROM ETT. VENT SETTINGS PER MD REQUEST. ALARMS CHECKED AND AUDIBLE PER POLICY. VENT PLUGGED INTO RED OUTLET. AMBU-BAG AT [facility]. WILL CONTINUE TO MONITOR PT.
[2016-10-14] MEDS: ENOXAPARIN SODIUM 30 MG/0.3 ML DISP.SYRIN SQ SCH (08:45)
[2016-10-14 08:56] LABS: ABG BASE EXCESS -2.1 mmol/L; ABG OXYGEN SATURATION 97.6 % (92.0-98.5); ABG PCO2 26.3 mmHg (35.0-45.0); ABG PH 7.509 (7.350-7.450); ABG PO2 116.5 mmHg (75.0-100.0); ABG TOTAL HEMOGLOBIN 7.6 G/dL (13.5-18.0); AaDO2 66.5 mmHg; COHb 1.6 % (0.5-1.5); MetHb 1.5 % (0.0-1.5); O2Hb 94.6 % (94.0-97.0); PEEP,BG 5 cm H2O; SITE, ABG Right Radial
--- NOTE | 2016-10-14 08:58 | NUR ---
RN NOTES SEEN AND EXAMINED BY DR. CINTRON. AWARE OF LAB AND CXR RESULT. PT ON A.FIB, 120S. ON AMIODARONE TAB. HGB 6.4, HCT 20. FOR BT 1 UNIT PRBC AND WILL REPEAT CBC AFTER. PER DR. CINTRON, CALL DR. ESCOBAR, POSSIBLE EGD. NO SIGNS OF ACTIVE BLEEDING NOTED. WILL CONTINUE TO MONITOR.
--- NOTE | 2016-10-14 09:00 | NUR ---
RN NOTES SEEN AND EXAMINED BY DR. CARROLL GARZA. AWARE OF CURRENT LAB AND CXR RESULT. FOR BT 1 UNIT OF PRBC. NO SIGNS OF BLEEDING NOTED. BUN 90, CREA 2.3. NO NEW ORDER MADE
[2016-10-14] MEDS: VANCOMYCIN 0.75 GM in IV D5W 250 ML IV SCH (09:06)
--- NOTE | 2016-10-14 09:15 | NUR ---
RN NOTES SEEN AND EXAMINED BY DR. MORALES. AWARE OF LABS AND CXR RESULT. NOTIFIED OF ABG RESULTS. MD ORDERED TO CHANGE VENT SETTINGS: AC TO 16 AND TV TO 500. NOTED AND CARRIED OUT.
--- NOTE | 2016-10-14 09:55 | NUR ---
RN NOTES SEEN AND EXAMINED BY / SOPHIA. AWARE OF WBC 15.4. AFEBRILE. ON IV ATB. NO ASE NOTED. HGB 6.4, HCT 20. NO SIGNS OF ACTIVE BLEEDING NOTED. SODIUM 146, BUN 90, CREA 2.3, ALBUMIN 2.3. FOR BT 1 UNIT OF PRBC. AWARE THAT PT STILL HAS RESIDUAL, 100-200ML. CALLED DR. ESCOBAR, PER MD, WILL CHECK PT IN A BIT. NO ORDER MADE AT THIS TIME. WILL CONTINUE TO MONITOR.
[2016-10-14] MEDS: FIBERSOURCE HN 1,000 ML BOTTLE GT PRN (12:16)
[2016-10-14] MEDS ORDERED: BLOOD IV SET 1 EA INFUS.SET MC ONE (14:18)
[2016-10-14] MEDS ORDERED: IV NS 0.9% 250 ML IV ONE (14:19)
--- NOTE | 2016-10-14 14:40 | NUR ---
RN NOTES 1 UNIT OF PRBC STARTED. AFEBRILE. NO RESPIRATORY DISTRESS NOTED. NO SOB NOTED. NO SIGNS OF PAIN NOTED. WILL MONITOR.
--- NOTE | 2016-10-14 16:08 | NUR ---
RN NOTES SEEN AND EXAMINED BY TERRAZZO WORKER APPRENTICE. REVIEWED CURRENT GTF ORDER AND LAB WORKS. RECOMMENDED PROSTAT DAILY. ORDER NOTED AND CARRIED OUT.
--- NOTE | 2016-10-14 16:12 | NUR ---
RN NOTES SEEN AND EXAMINED BY DR. ESCOBAR. AWARE OF HGB 6.4, HCT 20. NO SIGNS OF ACTIVE BLEEDING NOTED. TRANSFUSING 1 UNIT OF PRBC. NO SIGNS OF BT REACTION NOTED. ON GTF AT 45ML/HR. RESIDUALS BET 100-200ML. ON REGLAN. MD AWARE OF DIETARY RECOMMENDATION TO START PROSTAT. MD ORDERED INCREASE GTF RATE TO 55ML/HR. WILL CONTINUE TO MONITOR.
[2016-10-14] MEDS ORDERED: FIBERSOURCE HN 1,000 ML BOTTLE GT PRN (16:32)
[2016-10-14 18:38] LABS: BASOPHILS # (AUTO) 0.1 /CMM (0.0-0.2); BASOPHILS % (AUTO) 0.6 % (0.0-2.0); EOSINOPHILS # (AUTO) 0.1 /CMM (0.0-0.7); EOSINOPHILS % (AUTO) 0.5 % (0.0-6.0); HEMATOCRIT 23 % (39-51); HEMOGLOBIN 7.3 g/dL (13.5-17.5); LYMPHOCYTES # (AUTO) 1.3 /CMM (0.8-4.8); LYMPHOCYTES % (AUTO) 7.9 % (20.0-44.0); MEAN CORPUSCULAR HEMOGLOBIN 28 PG (26.0-33.0); MEAN CORPUSCULAR HGB CONC 32 g/dl (31.0-36.0); MEAN CORPUSCULAR VOLUME 87 fL (80-96); MONOCYTES # (AUTO) 1.3 /CMM (0.1-1.30); MONOCYTES % (AUTO) 7.9 % (2.0-12.0); NEUTROPHILS # (AUTO) 13.7 /CMM (1.8-8.9); NEUTROPHILS % (AUTO) 83.1 % (43.0-81.0); PLATELET COUNT (AUTO) 216 /CMM (150-450); RDW COEFFICIENT OF VARIATION 25.9 (11.5-15.0); RED BLOOD CELL COUNT(AUTO) 2.67 MIL/uL (4.5-6.0); WHITE BLOOD COUNT (AUTO) 16.5 K/uL (4.3-11.0)
--- NOTE | 2016-10-14 18:46 | NUR ---
RN CLOSING NOTES PT REMAINS STABLE. NO RESPIRATORY DISTRESS NOTED. NO SOB NOTED. NO SIGNS OF PAIN NOTED. IV LINES IN PLACE. GT INTACT. ON GTF, RESIDUAL CLOSELY MONITORED. FC IN PLACE. ADEQUATE OUTPUT NOTED. KEPT CLEAN AND DRY. TX PROVIDED ORDERED. REPOSITIONED Q2. KEPT BLE ELEVATED. KEPT COMFORTABLE. WILL ENDORSE FOR CONTINUITY OF CARE.
--- NOTE | 2016-10-14 19:15 | NUR ---
RN NOTES DR. CORTES NOTIFIED REGARDING RPT HGB 7.3, HCT 23 POST BT 1UNIT OF PRBC. ORDERED CBC IN 4 HRS. NOTED AND CARRIED OUT.
--- NOTE | 2016-10-14 20:00 | NUR ---
Received patient lethargic,noninteractive.Bilateral soft wrist restraints on.No circulatory impairment noted.Currently intubated to vent on same setting.SPO2 100%.VS stable.Hemodynamically stable. Afib 112.Patient on GT feeding in progress.Checked residual 250 ml.Feeding put on hold and will recheck GT residual in 2 hrs.Aspiration and skin precaution observed.FC to gravity draining yellow urine.Turned and repositioned to comfort offloading pressure points.Maintained on KCI mattress. No acute distress noted.
[2016-10-14] MEDS: MICAFUNGIN SODIUM 100 MG in IV NS 0.9% 100 ML IV SCH (20:03)
[2016-10-14] MEDS: TEMAZEPAM 7.5 MG CAPSULE GT SCH (22:00)
--- NOTE | 2016-10-14 22:05 | NUR ---
Patient scheduled dose of Restoril at 2200 not administered.Patient very lethargic. GT residual 20 ml.Feeding restarted.HOB elevated.
[2016-10-14 23:15] LABS: BASOPHILS # (AUTO) 0.1 /CMM (0.0-0.2); BASOPHILS % (AUTO) 0.6 % (0.0-2.0); EOSINOPHILS # (AUTO) 0.1 /CMM (0.0-0.7); EOSINOPHILS % (AUTO) 0.5 % (0.0-6.0); HEMATOCRIT 22 % (39-51); HEMOGLOBIN 7.1 g/dL (13.5-17.5); LYMPHOCYTES # (AUTO) 1.4 /CMM (0.8-4.8); LYMPHOCYTES % (AUTO) 8.1 % (20.0-44.0); MEAN CORPUSCULAR HEMOGLOBIN 28 PG (26.0-33.0); MEAN CORPUSCULAR HGB CONC 32 g/dl (31.0-36.0); MEAN CORPUSCULAR VOLUME 87 fL (80-96); MONOCYTES # (AUTO) 1.1 /CMM (0.1-1.30); MONOCYTES % (AUTO) 6.6 % (2.0-12.0); NEUTROPHILS # (AUTO) 14.3 /CMM (1.8-8.9); NEUTROPHILS % (AUTO) 84.2 % (43.0-81.0); PLATELET COUNT (AUTO) 241 /CMM (150-450); RDW COEFFICIENT OF VARIATION 24.7 (11.5-15.0); RED BLOOD CELL COUNT(AUTO) 2.53 MIL/uL (4.5-6.0)
[2016-10-15] VITALS (38 sets, daily range): BP systolic 96–184; BP diastolic 41–73
[2016-10-15] MEDS: IPRATROPIUM NEB FS 0.5 MG/2.5 ML AMPUL.NEB NEB SCH ×4 (01:45→19:47)
[2016-10-15] MEDS: ALBUTEROL FS 2.5 MG/3 ML VIAL.NEB NEB SCH ×4 (01:45→19:48)
--- NOTE | 2016-10-15 04:46 | NUR ---
Message sent to regarding patient H/H 7.08/01.Awaiting for orders.
[2016-10-15 04:58] LABS: CALCIUM, SERUM 8.8 mg/dL (8.5-10.1); CREATININE 2.2 mg/dL (0.6-1.3); POTASSIUM 4.6 mmol/L (3.5-5.1)
--- NOTE | 2016-10-15 06:47 | NUR ---
Patient resting.VS stable.Still afib from 110 -120's and at times 130's with turning non sustaining. here made aware.No acute distress noted.All due meds administered.GT feeding tolerating. No active bleeding noted.Still no response from regarding low H/H will endorse to incoming AM shift.Turned and repositioned.
[2016-10-15 07:58] LABS: BASOPHILS # (AUTO) 0.1 /CMM (0.0-0.2); BASOPHILS % (AUTO) 0.6 % (0.0-2.0); EOSINOPHILS # (AUTO) 0.1 /CMM (0.0-0.7); EOSINOPHILS % (AUTO) 0.5 % (0.0-6.0); HEMATOCRIT 21 % (39-51); LYMPHOCYTES # (AUTO) 1.3 /CMM (0.8-4.8); LYMPHOCYTES % (AUTO) 8.5 % (20.0-44.0); MEAN CORPUSCULAR HEMOGLOBIN 28 PG (26.0-33.0); MEAN CORPUSCULAR HGB CONC 32 g/dl (31.0-36.0); MEAN CORPUSCULAR VOLUME 88 fL (80-96); MONOCYTES % (AUTO) 6.3 % (2.0-12.0); NEUTROPHILS # (AUTO) 13.4 /CMM (1.8-8.9); NEUTROPHILS % (AUTO) 84.1 % (43.0-81.0); PLATELET COUNT (AUTO) 236 /CMM (150-450); RDW COEFFICIENT OF VARIATION 26.1 (11.5-15.0); RED BLOOD CELL COUNT(AUTO) 2.44 MIL/uL (4.5-6.0); WHITE BLOOD COUNT (AUTO) 15.9 K/uL (4.3-11.0)
[2016-10-15 08:00] LABS: HEMOGLOBIN 6.8 g/dL (13.5-17.5)
--- NOTE | 2016-10-15 08:00 | NUR ---
RT PT RECEIVED ORALLY INTUBATED WITH A 7.5 ETT SECURED AT 24CM AT THE LIP LINE. PT RESPONDS TO STIMULI WHEN SUCTIONED. VENT ALARMS ARE SET AND AUDIBLE WITH BVM BY BEDSIDE. PROGRESSIVE CARE NURSE CUFF PRESSURE NOTED. VENT IS PLUGGED INTO RED OUTLET. SX SMALL THICK WHITE/CLEAR SECRETIONS. NO RESPIRATORY DISTRESS NOTED AT THIS TIME, WILL CONTINUE TO MONITOR. Addendum: 10/15/16 at 1513 by CONNER CHANEY RT Amended: Links added.
[2016-10-15] MEDS: AMIODARONE HCL 200 MG TABLET PO SCH ×3 (08:01→17:21)
[2016-10-15] MEDS: VALPROIC ACID 250 MG/5 ML UDC GT SCH ×2 (08:01→21:01)
[2016-10-15] MEDS: ASPIRIN 81 MG TAB.CHEW GT SCH (08:01)
[2016-10-15] MEDS: PANTOPRAZOLE 40 MG/PACK PACK GT SCH (08:01)
[2016-10-15] MEDS: PROSOURCE / PROSTAT (PYXIS) 30 ML UDC GT SCH (08:01)
[2016-10-15] MEDS: ACIDOPHILUS/BULGARICUS 1 EACH TAB.CHEW GT SCH ×2 (08:02→17:21)
[2016-10-15] MEDS: METOCLOPRAMIDE HCL 10 MG/2 ML VIAL IV SCH ×2 (08:02→17:22)
[2016-10-15] MEDS: ENOXAPARIN SODIUM 30 MG/0.3 ML DISP.SYRIN SQ SCH (09:00)
[2016-10-15 09:16] LABS: ANISOCYTOSIS 2+; BAND % (MANUAL) 1 % (0.0-5.0); LYMPHOCYTES % (MANUAL) 8 % (16-48); NEUTROPHILS % (MANUAL) 89 (42-76); PLATELET ESTIMATE ADEQUATE; REACTIVE LYMPHOCYTES 1 % (0-0)
--- NOTE | 2016-10-15 09:31 | NUR ---
ACUTE CARE CERTIFIED NURSING ASSISTANT NOTE 0720: Received patient obtunded, unable to comprehend, only responds to pain, noted with facial grimace through deep pain. With ETT to vent, tolerated settings at this time, no respiratory distress noted. With GT intact, noted with 80mL residuals, continue GT feeding rate of 55mL/hr. Kept HOB elevated. Afib 100-120's on the monitor. S/E by Dr. Zendejas, with new order of Digoxin to start today. Moe cath intact, noted with clear dae colored urine drained to BSD. With CONNIE PICC and BRANDON midline intact. Patient is off Diprivan, will continue to monitor cognition,. SUPERVISOR MATRIX restraints on to prevent pulling out invasive tubings. 0830: H/H 6.8, informed Dr. Huntley, still no BM noted, obtained order for 1 unit PRBC. 0910: Held Lovenox for low H/H, will monitor for bleeding.
[2016-10-15] MEDS: DIGOXIN INJ 0.5 MG/2 ML AMPUL IV SCH ×2 (12:14→17:22)
[2016-10-15] MEDS ORDERED: RENAL NOVASOURCE 1,000 ML BOTTLE GT PRN (13:00)
--- NOTE | 2016-10-15 13:07 | NUR ---
Social service consult requested by ICU paving and surfacing labourer Pamela to contact pt's son Ilya Samayoa in regards to comfort care or trach placement. SW contacted pt's son Ilya and informed him that it is imperative that he comes to a decision regarding comfort care or trach placement for pt. since pt. is unresponsive. Ilya informed SW that his dad (pt) would not want this and would like to speak to Dr. Moon prior to making a decision. Ilya stated he is available today and to have Dr. Moon contact him. SW contacted pt's CHRISTIAN Gonzalez and updated him on the conversation SW had with pt's son Ilya.
[2016-10-15] MEDS ORDERED: BLOOD IV SET 1 EA INFUS.SET MC ONE (13:36)
[2016-10-15] MEDS ORDERED: IV NS 0.9% 500 ML IV ONE (13:37)
--- NOTE | 2016-10-15 13:37 | NUR ---
UZMA was informed by director case Ely that Dr. Moon would like for pt's son Ilya to contact him. UZMA called Ilya and left him a voicemail message requesting him to call Dr. Red sepulveda at as he is awaiting his call.
[2016-10-15] MEDS ORDERED: IV SET PRIMARY PUMP SET 1 EA INFUS.SET MC ONE (14:29)
[2016-10-15] MEDS: IV NS 0.9% 250 ML IV PRN (14:36)
--- NOTE | 2016-10-15 14:50 | NUR ---
BLOCK CABLEMAN NOTE 1300: S/E by Dr. Red MD spoke with son re: the POC, with plan for trache. 1400: Spoke with son via phone and given consent for trache, witnessed by another nurse, 1PRBC on going, tolerated at this time, no any adverse reactions from blood transfusion. 1445: CN spoke with Surgery dept and with plan for Trache placement on Tuesday @ 1800.
[2016-10-15 17:53] LABS: HEMOGLOBIN 8.1 g/dL (13.5-17.5)
--- NOTE | 2016-10-15 19:30 | NUR ---
Patient remains unresponsive.AFIB 110-120's.Maintained on same vent settings and well tolerated. Suction small amount white secretion.GT feeding in progress with residual 100 ml. HOB elevated. No distress noted.Turned and repositioned offloading pressure points.
[2016-10-15] MEDS: TEMAZEPAM 7.5 MG CAPSULE GT SCH (22:00)
[2016-10-16] VITALS (39 sets, daily range): BP systolic 116–168; BP diastolic 36–57
[2016-10-16] MEDS: DIGOXIN INJ 0.5 MG/2 ML AMPUL IV SCH ×2 (00:01→12:25)
[2016-10-16] MEDS: ALBUTEROL FS 2.5 MG/3 ML VIAL.NEB NEB SCH ×4 (01:49→19:38)
[2016-10-16] MEDS: IPRATROPIUM NEB FS 0.5 MG/2.5 ML AMPUL.NEB NEB SCH ×4 (01:49→19:38)
[2016-10-16 04:48] LABS: INR 1.16 (0.87-1.13); PROTHROMBIN TIME 12.5 SECS (9.5-12.7)
[2016-10-16 04:53] LABS: CALCIUM, SERUM 9.1 mg/dL (8.5-10.1); CREATININE 2.1 mg/dL (0.6-1.3); POTASSIUM 4.1 mmol/L (3.5-5.1)
--- NOTE | 2016-10-16 06:30 | NUR ---
Patient resting.VS stable.Still Afib rate from 94 -115.Received last dose if Digoxin @ 12MN. Hemodynamically stable.GT feeding tolerating well.AM care done.Turned and repositioned. No acute distress noted.
[2016-10-16 07:58] LABS: BASOPHILS # (AUTO) 0.1 /CMM (0.0-0.2); BASOPHILS % (AUTO) 0.4 % (0.0-2.0); EOSINOPHILS # (AUTO) 0.1 /CMM (0.0-0.7); EOSINOPHILS % (AUTO) 0.5 % (0.0-6.0); HEMATOCRIT 23 % (39-51); HEMOGLOBIN 7.2 g/dL (13.5-17.5); LYMPHOCYTES # (AUTO) 1.2 /CMM (0.8-4.8); LYMPHOCYTES % (AUTO) 6.8 % (20.0-44.0); MEAN CORPUSCULAR HEMOGLOBIN 28 PG (26.0-33.0); MEAN CORPUSCULAR HGB CONC 32 g/dl (31.0-36.0); MEAN CORPUSCULAR VOLUME 89 fL (80-96); MONOCYTES # (AUTO) 1.1 /CMM (0.1-1.30); MONOCYTES % (AUTO) 6.4 % (2.0-12.0); NEUTROPHILS # (AUTO) 14.7 /CMM (1.8-8.9); NEUTROPHILS % (AUTO) 85.9 % (43.0-81.0); PLATELET COUNT (AUTO) 268 /CMM (150-450); RDW COEFFICIENT OF VARIATION 23.1 (11.5-15.0); RED BLOOD CELL COUNT(AUTO) 2.55 MIL/uL (4.5-6.0); WHITE BLOOD COUNT (AUTO) 17.1 K/uL (4.3-11.0)
--- NOTE | 2016-10-16 08:00 | NUR ---
ICU/RN - Initial Notes Received patient in bed obtunded, unable to comprehend, only responds to pain, facial grimace noted with deep pain. Orally intubated to mechanical vent, with settings as ordered. No respiratory distress. GT intact, with 180 mL residual, tube feeding held as ordered, will recheck in 2 hours. Kept HOB elevated. Afib 100-120's on the monitor. Moe cath intact, draining urine to gravity. CONNIE PICC and BRANDON midline patent and intact. INSOLE DEPARTMENT WORKER restraints on to prevent pulling out invasive tubes/lines. Safety and comfort measures in place. Will continue to monitor pt closely.
[2016-10-16] MEDS: PROSOURCE / PROSTAT (PYXIS) 30 ML UDC GT SCH (09:01)
[2016-10-16] MEDS: PANTOPRAZOLE 40 MG/PACK PACK GT SCH (09:01)
[2016-10-16] MEDS: VALPROIC ACID 250 MG/5 ML UDC GT SCH ×2 (09:02→20:29)
[2016-10-16] MEDS: ACIDOPHILUS/BULGARICUS 1 EACH TAB.CHEW GT SCH ×2 (09:02→16:17)
[2016-10-16] MEDS: METOCLOPRAMIDE HCL 10 MG/2 ML VIAL IV SCH ×2 (09:02→16:17)
[2016-10-16] MEDS: ASPIRIN 81 MG TAB.CHEW GT SCH (09:02)
[2016-10-16] MEDS: AMIODARONE HCL 200 MG TABLET PO SCH ×3 (09:02→16:18)
[2016-10-16] MEDS: ENOXAPARIN SODIUM 30 MG/0.3 ML DISP.SYRIN SQ SCH (09:03)
--- NOTE | 2016-10-16 10:30 | NUR ---
ICU/RN - Notes Tube feeding resumed, residual at this time is 45 mL.
[2016-10-16] MEDS: RENAL NOVASOURCE 1,000 ML BOTTLE GT PRN (12:25)
[2016-10-16] MEDS: IV NS 0.9% 250 ML IV PRN (12:25)
[2016-10-16 13:06] LABS: HEMOGLOBIN 6.8 g/dL (13.5-17.5)
--- NOTE | 2016-10-16 13:14 | NUR ---
ICU/RN - Notes Dr Pérez notified regarding pt's Hgb 6.8, with new orders for transfusions of x2 PRBC. No evidence of bleeding seen. Will carry out.
--- NOTE | 2016-10-16 15:30 | NUR ---
ICU/RN - Notes Bilateral soft wrist restraints removed as pt has not been attempting to pull out tubes/lines.
[2016-10-16 16:19] LABS: BASOPHILS # (AUTO) 0.1 /CMM (0.0-0.2); BASOPHILS % (AUTO) 0.7 % (0.0-2.0); EOSINOPHILS # (AUTO) 0.1 /CMM (0.0-0.7); EOSINOPHILS % (AUTO) 0.6 % (0.0-6.0); HEMATOCRIT 22 % (39-51); LYMPHOCYTES # (AUTO) 0.9 /CMM (0.8-4.8); LYMPHOCYTES % (AUTO) 5.8 % (20.0-44.0); MEAN CORPUSCULAR HEMOGLOBIN 28 PG (26.0-33.0); MEAN CORPUSCULAR HGB CONC 32 g/dl (31.0-36.0); MEAN CORPUSCULAR VOLUME 89 fL (80-96); NEUTROPHILS % (AUTO) 86.9 % (43.0-81.0); PLATELET COUNT (AUTO) 282 /CMM (150-450); RDW COEFFICIENT OF VARIATION 23.5 (11.5-15.0); RED BLOOD CELL COUNT(AUTO) 2.44 MIL/uL (4.5-6.0); WHITE BLOOD COUNT (AUTO) 16.1 K/uL (4.3-11.0)
[2016-10-16 17:43] LABS: HEMOGLOBIN 6.8 g/dL (13.5-17.5)
--- NOTE | 2016-10-16 17:46 | NUR ---
ICU/RN - Notes Followed up with blood bank regarding pt's PRBC units, per dental laboratory manager Bryanna, not ready at this time, "will be ready in an hour."
[2016-10-16] MEDS ORDERED: BLOOD IV SET 1 EA INFUS.SET MC ONE (18:09)
--- NOTE | 2016-10-16 18:52 | NUR ---
ICU/RN - Notes 1st PRBC transfusion in process, vital signs stable, no s/s of adverse reaction.
[2016-10-16 20:18] LABS: ANISOCYTOSIS 1+; BAND % (MANUAL) 3 % (0.0-5.0); LYMPHOCYTES % (MANUAL) 2 % (16-48); MONOCYTES % (MANUAL) 4 % (0-11.0); NEUTROPHILS % (MANUAL) 91 (42-76); PLATELET ESTIMATE ADEQUATE
--- NOTE | 2016-10-16 20:24 | NUR ---
PT RECEIVED INTUBATED WITH 7.5 ETT SECURED AT 24CM AT THE LIP. NO RESP DISTRESS PT TOLERATING VENT SETTINGS. SX'D FOR MOD AMT OF THICK WHITE SECRETIONS. VENT ALARMS SET AND AUDIBLE. AMBU BAG AT [facility]. VENT PLUGGED INTO RED OUTLET. WILL CONTINUE TO MONITOR. Addendum: 10/16/16 at 2025 by SHA ROSE RT Amended: Links added.
--- NOTE | 2016-10-16 21:51 | NUR ---
RETAIL SOLAR ADVISOR DF PT POST 07/12 PRBC TRANSFUSION. TEMP OF 98.0 NO S/S OF ADVERSE RX NOTED. I WILL TRANSFUSE 2ND UNIT PRBC. Addendum: 10/16/16 at 2310 by NATALIYA FIGUEROA RN prbc 2/2 started. pt npo after 1999.pt scheduled for egd on 10/17 am
[2016-10-16] MEDS: TEMAZEPAM 7.5 MG CAPSULE GT SCH (22:00)
[2016-10-17] VITALS (45 sets, daily range): BP systolic 122–173; BP diastolic 30–55
--- NOTE | 2016-10-17 00:57 | NUR ---
MODULAR SET CREW MEMBER DF 2/2 PRBC TRANSFUSION COMPLETED WITH AM LABS AND EGD IN AM. NO S/S OF ACTIVE BLEEDING NOTED. PT HAS NOT HAD A BM.
[2016-10-17] MEDS: ALBUTEROL FS 2.5 MG/3 ML VIAL.NEB NEB SCH ×4 (01:09→20:17)
[2016-10-17] MEDS: IPRATROPIUM NEB FS 0.5 MG/2.5 ML AMPUL.NEB NEB SCH ×4 (01:09→20:17)
--- NOTE | 2016-10-17 03:46 | NUR ---
PROGRAM AIDE DF TOTAL AM CARE DONE WITH FAIR TOLERANCE. DRESSING CHANGES TO DOCUMENTED WOUNDS. NO S/S OF ACTIVE BLEEDING NO BM AT THIS TIME.
[2016-10-17 04:59] LABS: BASOPHILS # (AUTO) 0.1 /CMM (0.0-0.2); BASOPHILS % (AUTO) 0.4 % (0.0-2.0); EOSINOPHILS % (AUTO) 0.2 % (0.0-6.0); HEMATOCRIT 27 % (39-51); HEMOGLOBIN 8.8 g/dL (13.5-17.5); LYMPHOCYTES # (AUTO) 1.1 /CMM (0.8-4.8); LYMPHOCYTES % (AUTO) 6.4 % (20.0-44.0); MEAN CORPUSCULAR HEMOGLOBIN 29 PG (26.0-33.0); MEAN CORPUSCULAR HGB CONC 32 g/dl (31.0-36.0); MEAN CORPUSCULAR VOLUME 91 fL (80-96); MONOCYTES # (AUTO) 0.9 /CMM (0.1-1.30); MONOCYTES % (AUTO) 5.3 % (2.0-12.0); NEUTROPHILS # (AUTO) 14.9 /CMM (1.8-8.9); NEUTROPHILS % (AUTO) 87.7 % (43.0-81.0); PLATELET COUNT (AUTO) 251 /CMM (150-450); RDW COEFFICIENT OF VARIATION 19.5 (11.5-15.0); RED BLOOD CELL COUNT(AUTO) 2.99 MIL/uL (4.5-6.0)
[2016-10-17 05:16] LABS: CALCIUM, SERUM 8.8 mg/dL (8.5-10.1); MAGNESIUM 2.6 mg/dL (1.8-2.4); PHOSPHORUS 3.5 mg/dL (2.5-4.9); POTASSIUM 4.2 mmol/L (3.5-5.1)
--- NOTE | 2016-10-17 06:59 | NUR ---
DIRECTOR NEWS DF PT SCHEDULED FOR EGD TODAY AT 0900.PT NPO SINCE 199910/16/16.CONSENTS SIGNED BY PT,S SON AND ARE IN THE CHART.
--- NOTE | 2016-10-17 07:53 | NUR ---
ICU/RN - Initial Notes Received patient in bed obtunded, unable to comprehend, responds to painful stimuli with facial grimace. Orally intubated to mechanical vent, with settings as ordered. No respiratory distress. GT intact, kept NPO as ordered, pt for EGD this AM. Kept HOB elevated. SR 77 on the monitor. Moe cath intact, draining urine to gravity. CONNIE PICC and BRANDON midline patent and intact. Safety and comfort measures in place. Will continue to monitor pt closely.
--- NOTE | 2016-10-17 08:46 | NUR ---
RT PATIENT REC'D ORALLY INTUBATED ON MECH VENT MARLENE WELL. VENT ALARMS CHECKED + AUDIBLE. JOSEAT NEIL B/S HEARD. SArias'Kt W/ CJ AMT PALE SEMITHICK SECRETIONS. AMBU BAG AT HOB Addendum: 10/17/16 at 0846 by GISELA PADILLA RT Amended: Links added.
--- NOTE | 2016-10-17 09:38 | NUR ---
ICU/RN - Notes EGD done at bedside by Dr Huntley, no active bleeding found per MD. Recovery nurse at bedside, vital signs stable at this time.
[2016-10-17] MEDS: ACIDOPHILUS/BULGARICUS 1 EACH TAB.CHEW GT SCH ×2 (10:28→16:14)
[2016-10-17] MEDS: PANTOPRAZOLE 40 MG/PACK PACK GT SCH (10:28)
[2016-10-17] MEDS: ASPIRIN 81 MG TAB.CHEW GT SCH (10:28)
[2016-10-17] MEDS: RENAL NOVASOURCE 1,000 ML BOTTLE GT PRN (10:29)
[2016-10-17] MEDS: IV NS 0.9% 250 ML IV PRN (10:29)
[2016-10-17] MEDS: VALPROIC ACID 250 MG/5 ML UDC GT SCH ×2 (10:29→21:15)
[2016-10-17] MEDS: AMIODARONE HCL 200 MG TABLET PO SCH ×3 (10:29→16:14)
[2016-10-17] MEDS: METOCLOPRAMIDE HCL 10 MG/2 ML VIAL IV SCH ×2 (10:29→16:14)
--- NOTE | 2016-10-17 12:03 | NUR ---
RT PER DR ESPINOZA DAILY ABG NOT NECESSARY TODAY, PATIENT STABLE WITH NO DISTRESS OR SOB
[2016-10-17] MEDS ORDERED: BUPIVACAINE MPF W/EPI 0.25% 30 ML VIAL ONE (12:20)
[2016-10-17] MEDS: DIGOXIN INJ 0.5 MG/2 ML AMPUL IV SCH (12:36)
[2016-10-17] MEDS: NEOMY SULF/BACITRAC ZN/POLY 15 GM TUBE TP SCH (14:06)
--- NOTE | 2016-10-17 16:15 | NUR ---
ICU/RN - Notes Gastric residual noted at 100 ml, Reglan IVP given. Will continue to monitor.
[2016-10-17 18:17] LABS: BILIRUBIN,DIRECT 0.5 mg/dL (0.0-0.2); BILIRUBIN,TOTAL 1.2 mg/dL (0.2-1.0)
--- NOTE | 2016-10-17 18:55 | NUR ---
ICU/RN - Notes No significant change in pt's condition. Pt's gastric residual at this time is 50 mL. All needs met and attended. Will endorse to night nurse for continuity of care.
[2016-10-17 19:40] LABS: THYROID STIMULATING HORMONE 4.143 uIU/mL (0.358-3.74); URIC ACID 8.9 mg/dL (2.6-7.2)
--- NOTE | 2016-10-17 20:46 | NUR ---
received pt from day shift, lethargic/obtunded, does not follow commands,SR, on the vent, lungs congested, pitting edema all extremities, GT to feeding high residual, f/c OK output, v/s stable, no pain, pt turned and repositioned q2hrs.
[2016-10-17] MEDS: TEMAZEPAM 7.5 MG CAPSULE GT SCH (21:17)
[2016-10-17] MEDS ORDERED: hydrALAZINE HCL IV 20 MG VIAL ONE (22:14)
[2016-10-17] MEDS ORDERED: hydrALAZINE HCL IV 20 MG VIAL IV PRN (22:30)
[2016-10-17 22:37] LABS: RETICULOCYTE COUNT 3.7 % (0.6-2.5)
[2016-10-18] VITALS (58 sets, daily range): BP systolic 112–178; BP diastolic 31–53
--- NOTE | 2016-10-18 00:38 | NUR ---
pt is resting in the bed, v/s stable, no pain, pt turned and repositioned q2hrs.
[2016-10-18] MEDS: IPRATROPIUM NEB FS 0.5 MG/2.5 ML AMPUL.NEB NEB SCH ×4 (01:29→20:11)
[2016-10-18] MEDS: ALBUTEROL FS 2.5 MG/3 ML VIAL.NEB NEB SCH ×4 (01:29→20:11)
--- NOTE | 2016-10-18 04:09 | NUR ---
pt is resting in the bed, no acute distress overnight, tolerates feeding, no BM, good urine output, v/s stable, no pain, pt cleaned, changed and repositioned q2hrs.
[2016-10-18 04:51] LABS: BASOPHILS # (AUTO) 0.1 /CMM (0.0-0.2); BASOPHILS % (AUTO) 0.3 % (0.0-2.0); EOSINOPHILS # (AUTO) 0.2 /CMM (0.0-0.7); EOSINOPHILS % (AUTO) 0.9 % (0.0-6.0); HEMATOCRIT 23 % (39-51); HEMOGLOBIN 7.5 g/dL (13.5-17.5); LYMPHOCYTES # (AUTO) 1.3 /CMM (0.8-4.8); LYMPHOCYTES % (AUTO) 6.4 % (20.0-44.0); MEAN CORPUSCULAR HEMOGLOBIN 29 PG (26.0-33.0); MEAN CORPUSCULAR HGB CONC 32 g/dl (31.0-36.0); MEAN CORPUSCULAR VOLUME 92 fL (80-96); MONOCYTES # (AUTO) 0.9 /CMM (0.1-1.30); MONOCYTES % (AUTO) 4.5 % (2.0-12.0); NEUTROPHILS # (AUTO) 17.8 /CMM (1.8-8.9); NEUTROPHILS % (AUTO) 87.9 % (43.0-81.0); PLATELET COUNT (AUTO) 243 /CMM (150-450); RDW COEFFICIENT OF VARIATION 20.7 (11.5-15.0); RED BLOOD CELL COUNT(AUTO) 2.54 MIL/uL (4.5-6.0); WHITE BLOOD COUNT (AUTO) 20.3 K/uL (4.3-11.0)
[2016-10-18 05:11] LABS: ALBUMIN 1.8 g/dL (3.4-5.0); BILIRUBIN,DIRECT 0.4 mg/dL (0.0-0.2); BILIRUBIN,TOTAL 0.8 mg/dL (0.2-1.0); CREATININE 2.2 mg/dL (0.6-1.3); MAGNESIUM 2.6 mg/dL (1.8-2.4); PHOSPHORUS 3.5 mg/dL (2.5-4.9); POTASSIUM 3.8 mmol/L (3.5-5.1); TOTAL PROTEIN, SERUM 5.1 g/dL (6.4-8.2)
[2016-10-18 05:56] LABS: ANISOCYTOSIS 3+; BAND % (MANUAL) 2 % (0.0-5.0); EOSINOPHILS % (MANUAL) 2 % (0-4); LYMPHOCYTES % (MANUAL) 3 % (16-48); MONOCYTES % (MANUAL) 5 % (0-11.0); NEUTROPHILS % (MANUAL) 88 (42-76); PLATELET ESTIMATE ADEQUATE
[2016-10-18 05:57] LABS: HYPOCHROMASIA 1+
--- NOTE | 2016-10-18 07:58 | NUR ---
INITIAL BALLISTICS EXPERT NOTE RCVD PT LETHARGIC ABLE TO OPEN EYES, BUT UNABLE TO FOLLOW SIMPLE COMMANDS. SR ON TELE, TOLERATING ORDERED VENT SETTINGS, ETT 7.5 24 AT LIP. PEG PLACEMENT VERIFIED. FEEDING STOPPED FOR PROCEDURE LATER TODAY. SILVEIRA IN PLACE DRAINING MEGHA COLORED URINE. IV SITES C/D/I/PATENT. NO S/O INFILTRATION OR PHLEBITIS OBSERVED. PT SUCTIONED WILL CONTINUE TO MONITOR FOR SAFETY AND COMFORT. CALL LIGHT WITHIN REACH. BED IN LOW AND LOCKED POSITION.
[2016-10-18] MEDS: NEOMY SULF/BACITRAC ZN/POLY 15 GM TUBE TP SCH (08:44)
[2016-10-18] MEDS: ASPIRIN 81 MG TAB.CHEW GT SCH ×2 (08:44→09:00)
[2016-10-18] MEDS: PANTOPRAZOLE 40 MG/PACK PACK GT SCH (08:44)
[2016-10-18] MEDS: VALPROIC ACID 250 MG/5 ML UDC GT SCH ×2 (08:44→20:50)
[2016-10-18] MEDS: METOCLOPRAMIDE HCL 10 MG/2 ML VIAL IV SCH ×2 (08:44→17:53)
[2016-10-18] MEDS: ACIDOPHILUS/BULGARICUS 1 EACH TAB.CHEW GT SCH ×2 (08:44→17:00)
[2016-10-18] MEDS: AMIODARONE HCL 200 MG TABLET PO SCH ×3 (08:45→17:00)
[2016-10-18] MEDS ORDERED: BLOOD IV SET 1 EA INFUS.SET MC ONE (11:31)
[2016-10-18] MEDS: DIGOXIN INJ 0.5 MG/2 ML AMPUL IV SCH (12:08)
--- NOTE | 2016-10-18 13:34 | NUR ---
HOOP FLARING MACHINE OPERATOR NOTE FIRST UNIT PRBC INFUSING NO S/O REACTION OBSERVED VITAL SIGNS STABLE. WILL CONTINUE TO MONITOR PT.
--- NOTE | 2016-10-18 16:34 | NUR ---
PIPE MAKER NOTE FIRST UNIT PRBC FINISHED, NO REACTION OBSERVED. SECOND UNIT STARTED VITAL REMAIN STABLE. WILL CONTINUE TO MONITOR PT.
[2016-10-18] MEDS ORDERED: LIDOCAINE HCL/PF 1% 30 ML SDV ONE (17:17)
[2016-10-18] MEDS ORDERED: LIDOCAINE 1%-EPI 1:100,000 20 ML VIAL ONE (17:24)
[2016-10-18] MEDS ORDERED: ROCURONIUM BROMIDE 50 MG/5 ML ONE (17:54)
[2016-10-18] MEDS ORDERED: MIDAZOLAM HCL 2 MG/2ML VIAL ONE (17:54)
--- NOTE | 2016-10-18 18:05 | NUR ---
CLIENT DELIVERY SPECIALIST NOTE PT TAKEN TO OR SHOWING NO S/O DISTRESS OR PAIN. ACCOMPANIED BY RT AND OR, MARITIME OFFICER. Addendum: 10/18/16 at 1811 by BANG LIVINGSTON RN SECOND UNIT PRBC IN PROGRESS TAKEN WITH PT TO OR.
[2016-10-18] MEDS ORDERED: CELLULOSE,OXIDIZED 1 EA PACK MC ONE (18:31)
--- NOTE | 2016-10-18 18:33 | NUR ---
RT END OF THE SHIFT REPORT: PT. 81 Y OLD MALE REMAIN ORALLY INTUBATED ETT#7.5 @ 24CM ON VENT WITH NOTED SETTINGS, ALARMS ARE SET AND FUNCTIONAL, B/S RALES/RHONCHI BILATERALLY SUX' FOR MINIMAL SWEET SECRETIONS, NO DISTRESS NOTED MARLENE. WELL. CONTINUED FOR MONITOR. VENT PLUGGED INTO RED OUTLET. TX'S GIVEN INLINE AND NO ADVERSE REACTION NOTED. EQUAL CHEST RISE NOTED. HME CHANGED, AMBU BAG REMAIN AT THE BEDSIDE. PT. REMAIN STABLE. Addendum: 10/18/16 at 1834 by SOFY THOMPSON RT Amended: Links added.
--- NOTE | 2016-10-18 18:55 | NUR ---
ENDING POPCORN MACHINE OPERATOR NOTE PT BACK FROM OR RECOVERY, RN AT BEDSIDE. PT TRACHEOSTOMY SITE C/D/I TOLERATING ORDERED VENT SETTINGS WELL. VITAL SIGNS STABLE. PRBC STILL INFUSING. SILVEIRA CONTINUES TO DRAIN MEGHA, CLOUDY URINE. IV SITES C/D/I/PATENT. NO S/O INFILTRATION OR PHLEBITIS OBSERVED. BED IN LOW AND LOCKED POSITION. PT'S CARE WILL BE ENDORSED TO HVAC/R INSTRUCTOR RN FOR CONTINUITY OF CARE.
[2016-10-18] MEDS ORDERED: ANESTHESIA TRAY IN PYXIS 1 EA TRAY MC ONE (19:01)
--- NOTE | 2016-10-18 20:05 | NUR ---
ICU/RN - Collected STAT urine and sent to lab.
--- NOTE | 2016-10-18 20:44 | NUR ---
pt received on vent via trach, settings as charted ambu bag at bedside alarms set and audible breath sounds equal bilateral coarse suctioned a small amount of thick white secretions pt receiving albuterol and atrovent q6 Addendum: 10/18/16 at 2046 by MEÑO LOPEZ RT Amended: Links added.
[2016-10-18] MEDS: RENAL NOVASOURCE 1,000 ML BOTTLE GT PRN (20:50)
[2016-10-18] MEDS: METRONIDAZOLE 500 MG TABLET PO SCH (20:50)
[2016-10-18] MEDS: TEMAZEPAM 7.5 MG CAPSULE GT SCH (21:03)
--- NOTE | 2016-10-18 21:58 | NUR ---
ICU/RN- INFORMED HD NURSE ABOUT BLOOD CULTURE X 2 15 MIN APART PER MD ORDER. Addendum: 10/18/16 at 2200 by BRAYDON CHAUDHARI RN PLEASE DISREGARD NOTE. FOR DIFFERENT PATIENT.
--- NOTE | 2016-10-18 21:58 | NUR ---
ICU/RN- HD NURSE AT BEDSIDE FOR DIALYSIS Addendum: 10/18/16 at 2200 by BRAYDON CHAUDHARI RN PLEASE DISREGARD NOTE. FOR DIFFERENT PATIENT.
[2016-10-19] VITALS (36 sets, daily range): BP systolic 113–157; BP diastolic 25–88
[2016-10-19] MEDS: IPRATROPIUM NEB FS 0.5 MG/2.5 ML AMPUL.NEB NEB SCH ×4 (01:48→19:34)
[2016-10-19] MEDS: ALBUTEROL FS 2.5 MG/3 ML VIAL.NEB NEB SCH ×4 (01:48→19:34)
--- NOTE | 2016-10-19 02:00 | NUR ---
ICU/RN- NOTED LARGE FORMED BLOODY STOOL. PT IMPACTED, PERFORMED DIGITAL DISIMPACTION. TOLERATED WELL. WILL ASK LAB TO DRAW AM LAB EARLY. WILL MONITOR CLOSELY.
[2016-10-19 02:57] LABS: BASOPHILS % (AUTO) 0.1 % (0.0-2.0); EOSINOPHILS # (AUTO) 0.1 /CMM (0.0-0.7); EOSINOPHILS % (AUTO) 0.6 % (0.0-6.0); HEMATOCRIT 25 % (39-51); LYMPHOCYTES # (AUTO) 0.9 /CMM (0.8-4.8); LYMPHOCYTES % (AUTO) 4.5 % (20.0-44.0); MEAN CORPUSCULAR HEMOGLOBIN 30 PG (26.0-33.0); MEAN CORPUSCULAR HGB CONC 33 g/dl (31.0-36.0); MEAN CORPUSCULAR VOLUME 91 fL (80-96); MONOCYTES # (AUTO) 0.7 /CMM (0.1-1.30); MONOCYTES % (AUTO) 3.6 % (2.0-12.0); NEUTROPHILS # (AUTO) 18.5 /CMM (1.8-8.9); NEUTROPHILS % (AUTO) 91.2 % (43.0-81.0); PLATELET COUNT (AUTO) 228 /CMM (150-450); RDW COEFFICIENT OF VARIATION 18.1 (11.5-15.0); WHITE BLOOD COUNT (AUTO) 20.3 K/uL (4.3-11.0)
[2016-10-19 03:09] LABS: INR 1.07 (0.87-1.13); PROTHROMBIN TIME 11.5 SECS (9.5-12.7)
[2016-10-19 03:10] LABS: CREATININE 2.1 mg/dL (0.6-1.3); MAGNESIUM 2.9 mg/dL (1.8-2.4); PHOSPHORUS 4.2 mg/dL (2.5-4.9)
[2016-10-19 03:13] LABS: ANISOCYTOSIS 1+; BAND % (MANUAL) 1 % (0.0-5.0); LYMPHOCYTES % (MANUAL) 5 % (16-48); MONOCYTES % (MANUAL) 3 % (0-11.0); NEUTROPHILS % (MANUAL) 91 (42-76); PLATELET ESTIMATE ADEQUATE
--- NOTE | 2016-10-19 04:01 | NUR ---
ICU/RN- INFORMED DR IVERSON ABOUT BLOODY BM AND CRITICAL LAB FOR NA 158 AND BUN 130. MD ORDERED TO INCREASE FREE H2O GT FLUSHES TO 300ML Q 6 HRS. ORDERS CARRIED OUT.
[2016-10-19] MEDS: METRONIDAZOLE 500 MG TABLET PO SCH ×3 (04:48→21:26)
--- NOTE | 2016-10-19 07:42 | NUR ---
INITIAL WAX POURER NOTE RCVD PT LETHARGIC, OPEN EYES, DOES NOT FOLLOW COMMANDS. SR ON TELE. TOLERATING ORDERED VENT SETTINGS. SILVEIRA IN PLACE DRAINING CLOUDY, MEGHA URINE. TUBE FEED PLACEMENT VERIFIED. RESIDUAL 65ML OBTAINED. WILL CONTINUE TO ASSESS. IV SITES C/D/I/PATENT. NO S/O INFILTRATION OR PHLEBITIS OBSERVED UPON FLUSHING. WILL CONTINUE TO MONITOR PT FOR SAFETY AND COMFORT. CALL LIGHT WITHIN REACH. BED IN LOW AND LOCKED POSITION.
[2016-10-19 08:29] LABS: ABG OXYGEN SATURATION 96.6 % (92.0-98.5); ABG PCO2 28.8 mmHg (35.0-45.0); ABG PH 7.512 (7.350-7.450); ABG PO2 101.2 mmHg (75.0-100.0); ABG TOTAL HEMOGLOBIN 8.8 G/dL (13.5-18.0); AaDO2 78.9 mmHg; COHb 1.3 % (0.5-1.5); MetHb 1.3 % (0.0-1.5); O2Hb 94.1 % (94.0-97.0); PEEP,BG 5 cm H2O; SITE, ABG Right Radial; VT, ABG 500 mL
[2016-10-19] MEDS: PANTOPRAZOLE 40 MG/PACK PACK GT SCH (08:42)
[2016-10-19] MEDS: VALPROIC ACID 250 MG/5 ML UDC GT SCH ×2 (08:42→21:26)
[2016-10-19] MEDS: AMIODARONE HCL 200 MG TABLET PO SCH ×3 (08:43→17:15)
[2016-10-19] MEDS: METOCLOPRAMIDE HCL 10 MG/2 ML VIAL IV SCH ×2 (08:43→17:15)
[2016-10-19] MEDS: ASPIRIN 81 MG TAB.CHEW GT SCH (08:43)
[2016-10-19] MEDS: NEOMY SULF/BACITRAC ZN/POLY 15 GM TUBE TP SCH (08:43)
[2016-10-19] MEDS: ACIDOPHILUS/BULGARICUS 1 EACH TAB.CHEW GT SCH ×2 (08:43→17:24)
--- NOTE | 2016-10-19 09:15 | NUR ---
ICU MEDICATION NOTE SPOKE WITH DR. CINTRON REGARDING ASA 81MG. HAND SURGEON REPORTED BLOOD PRESENT IN STOOL OVERNIGHT. HE RECOMMENDED TO HOLD IT. WILL CONTINUE TO MONITOR FOR BLEEDING.
[2016-10-19] MEDS: IV NS 0.9% 250 ML IV PRN (09:42)
[2016-10-19] MEDS ORDERED: IV D5W 1,000 ML IV ONE (11:30)
[2016-10-19 11:32] LABS: CARCINOEMBRYONIC AG (CEA) 21.6 ng/mL (0.0-4.7)
--- NOTE | 2016-10-19 11:33 | NUR ---
KEEL PRESS OPERATOR NOTE DR. ESCOBAR IN UNIT INFORMED HIM THAT PT NOT TOLERATING TUBE FEEDING RESIDUAL OF 100ML. TUBE FEEDING PAUSED. WILL CONTINUE TO MONITOR. HE WAS UPDATED ON PT'S STOOL HAVING BLOOD OVERNIGHT AND RESIDUAL HAVING A BROWN COLOR AT THIS TIME. DR. GARZA IN UNIT ORDERED TO SEND TUBE FEED RESIDUAL FOR OCCULT BLOOD, SHE WAS INFORMED OF THE POOR TOLERANCE OF TUBE FEEDING AND INABILITY TO GIVE ORDERED G-TUBE FLUSHES. SHE RECOMMENDED IVF AND DECREASE RATE OF FLUSHES TO 200ML Q6 HR INSTEAD. DR[address] GAN IN UNIT UPDATED ON PT'S PRESENCE OF BLOOD IN STOOL, SHE ACKNOWLEDGED AND RECOMMENDED TO F/U WITH DR. ESCOBAR.
[2016-10-19] MEDS: DIGOXIN INJ 0.5 MG/2 ML AMPUL IV SCH (12:34)
--- NOTE | 2016-10-19 13:02 | NUR ---
YARD ASSOCIATE NOTE PT CONTINUES TO HAVE HIGH RESIDUAL 100 ML FROM TUBE FEEDING. MARIAELENA FREITAS INFORMED. WILL CONTINUE TO MONITOR.
--- NOTE | 2016-10-19 15:58 | NUR ---
VACUUM COOKER OPERATORWEB MARKETING ASSISTANT NOTE PT TO BE DOWNGRADED TO [facility] WILL TRANSFER TO ROOM 117-2. REPORT CALLED AND GIVEN TO CHRISTIAN SANTIAGO.
--- NOTE | 2016-10-19 16:27 | NUR ---
TRANSFER NOTE PT TRANSFERRED PER PROTOCOL, WITH RT AND 2RNs AT BEDSIDE. VITAL SIGNS STABLE. PT RCVD BY CHRISTIAN SANTIAGO ROOM 117-1.
--- NOTE | 2016-10-19 17:00 | NUR ---
STACE[facility] RN NOTE RECEIVED PATIENT FROM ICU , WITH TRACH TO VENT SETTING ORDERED , AMBU BAG AT HOB AT ALL TIME, ON TELE MONITOR AFIB 91 , PATIENT LETHARGIC UNABLE TO FOLLOW ANY COMMAND , WITH F\C TO GRAVITY WITH YELLOW COLOR URINE WITH SEDIMENTS, WITH GTUBE FEEDING AT ORDERED BUT HOLD AT THIS TIME RESIDUAL 150 ML ,WILL MONITOR CLOSELY, ON IVF ORDERED , LT UPPER ARM PICC LINE AND RT UPPER ARM MID LINE IN PLACE ,NO S\S INFECTION NOTED , ON [employer] MATRES ORDERED, WITH B0TH LEGS WITH DVT PUMPS , BED IN LOWEST AND LOCKED POSITION W,ILL CONT TO MONITOR CLOSELY Addendum: 10/19/16 at 1837 by PAMELA BATES RN RESIDUAL BRAWN COLOR WILL MONITOR CLOSELY
--- NOTE | 2016-10-19 18:37 | NUR ---
STACEY RN NOTE PATIENT CONT ON IVF ORDERED, ON [employer] MATRES, RECHECK RESIDUAL, STILL 120 ML OF BROWN COLOR RESIDUAL , WILL MONITOR CLOSELY, WILL HOLD G TUBE FEEDING AT THIS TIME
--- NOTE | 2016-10-19 19:30 | NUR ---
RN NOTES RECEIVED PT RESTING ON BED NO ACUTE RESP DISTRESS. WITH TRACH CONNECTED TO VENT SETTING AC 16 TV 500 FIO2 30% PEEP OBTUNDED RESPONSIVE TO TACTILE STIMULI. WITH ACCELERATED JUNCTIONAL HR 84 ON TELE MONITOR. SUCTIONED WITH YELLOW COLOR THIN SECRETION JOSE. BREATH SOUND DIMINISHED. GTF NOVASOURCE WA HELD DUE TO HIGH RESIDUAL FROM PREV. SHIFT RECHECKED WITH 50 CC BROWN COLOR RESIDUAL RESTARTED FEEDING. WITH HOB ELEVATED PATENCY CHECKED. IV SITE ON CONNIE PICC LINE WITH NS @ 30 CC/HR AND RFA MIDLINE INTACT AND PATENT. F/C DRAINED WITH YELLOW CLEAR COLOR URINE . REPOSITIONED PT COMFORTABLE. KEPT PT CLEAN AND COMFORTABLE IN BED. BED LOCKED AND SECURED. NO ACTIVE BLEEDING . WILL CONTINUE TO MONITOR.
[2016-10-19] MEDS: TEMAZEPAM 7.5 MG CAPSULE GT SCH (21:26)
[2016-10-19] MEDS ORDERED: IV SET PRIMARY PUMP SET 1 EA INFUS.SET MC ONE (21:34)
[2016-10-19] MEDS: RENAL NOVASOURCE 1,000 ML BOTTLE GT PRN (21:38)
[2016-10-20] VITALS (14 sets, daily range): BP systolic 108–135; BP diastolic 30–38
--- NOTE | 2016-10-20 | NUR ---
RN NOTES RECHECKED RESIDUAL WITH 100 CC BROWN COLOR. HOB KEPT ELEVATED. CONTINUE GTF ORDERED WILL CONTINUE TO MONITOR.
[2016-10-20 01:15] LABS: ERYTHROPOIETIN 22.7 mIU/mL (2.6-18.5)
[2016-10-20] MEDS: IPRATROPIUM NEB FS 0.5 MG/2.5 ML AMPUL.NEB NEB SCH ×4 (01:42→19:26)
[2016-10-20] MEDS: ALBUTEROL FS 2.5 MG/3 ML VIAL.NEB NEB SCH ×4 (01:42→19:26)
[2016-10-20] MEDS: METRONIDAZOLE 500 MG TABLET PO SCH ×3 (06:15→21:02)
[2016-10-20 06:52] LABS: BASOPHILS # (AUTO) 0.1 /CMM (0.0-0.2); BASOPHILS % (AUTO) 0.4 % (0.0-2.0); EOSINOPHILS # (AUTO) 0.2 /CMM (0.0-0.7); EOSINOPHILS % (AUTO) 1.1 % (0.0-6.0); HEMATOCRIT 22 % (39-51); HEMOGLOBIN 7.1 g/dL (13.5-17.5); LYMPHOCYTES % (AUTO) 5.3 % (20.0-44.0); MEAN CORPUSCULAR HEMOGLOBIN 30 PG (26.0-33.0); MEAN CORPUSCULAR HGB CONC 33 g/dl (31.0-36.0); MEAN CORPUSCULAR VOLUME 93 fL (80-96); MONOCYTES # (AUTO) 0.7 /CMM (0.1-1.30); MONOCYTES % (AUTO) 3.5 % (2.0-12.0); NEUTROPHILS # (AUTO) 17.4 /CMM (1.8-8.9); NEUTROPHILS % (AUTO) 89.7 % (43.0-81.0); PLATELET COUNT (AUTO) 180 /CMM (150-450); RDW COEFFICIENT OF VARIATION 20.3 (11.5-15.0); RED BLOOD CELL COUNT(AUTO) 2.35 MIL/uL (4.5-6.0); WHITE BLOOD COUNT (AUTO) 19.4 K/uL (4.3-11.0)
--- NOTE | 2016-10-20 07:00 | NUR ---
RN NOTES PT ASLEEP WELL THROUGHOUT THE SHIFT RESPONSIVE TO TACTILE STIMULI. AFEBRILE. VS CONTINUE TO MONITOR. TRACH AND VENT SETTING TOLERATED WELL. NO SOB OR DISTRESS. SATING 98% TO 100% GTF TOLERATED WITH RESIDUAL MAX 100CC STILL BROWN COLOR. STOOL NOTED STILL WITH BLACK TARRY STOOL X1. KEPT PT CLEAN AND COMFORTABLE IN BED. ALL DUE MEDICINE TOLERATED WELL WELL ATB WITHOUT N/V/D. KEPT PT CLEAN AND COMFORTABLE IN BED. WOUND DRESSING CHANGE. WILL CONTINUE TO MONITOR.
--- NOTE | 2016-10-20 07:00 | NUR ---
RN NOTES RECEIVED PT ON BED , OBTUNDED, RESPONSIVE TO TACTILE STIMULI, TRACH AND VENT DEPENDENT , TRACH CARE DONE , TOLERATING CURRENT VENT SETTING WELL, ON TELE WITH ACCELERATED JUNCTIONAL HR 8O , GTF NOVASOURCE AT 35CC/HR AT THIS TIME 5CC RESIDUAL NOTED , CONNIE PICC LINE WITH NS @ 30 CC/HR AND RFA MIDLINE INTACT AND PATENT. F/C DRAINED WITH YELLOW CLEAR COLOR URINE . HOB ELEVATED , SR UPx3, BED LOCKED AND IN LOWEST POSITION , NO ACTIVE BLEEDING NOTED AT THIS TIME . WILL CONTINUE TO MONITOR PT CLOSELY AND NOTIFY MD FOR ANY SIGNIFICANT CHANGES .
[2016-10-20] MEDS: VALPROIC ACID 250 MG/5 ML UDC GT SCH ×2 (08:04→21:02)
[2016-10-20] MEDS: ASPIRIN 81 MG TAB.CHEW GT SCH (08:04)
[2016-10-20] MEDS: PANTOPRAZOLE 40 MG/PACK PACK GT SCH (08:04)
[2016-10-20] MEDS: METOCLOPRAMIDE HCL 10 MG/2 ML VIAL IV SCH ×2 (08:05→17:05)
[2016-10-20] MEDS: ACIDOPHILUS/BULGARICUS 1 EACH TAB.CHEW GT SCH ×2 (08:05→17:04)
[2016-10-20] MEDS: AMIODARONE HCL 200 MG TABLET PO SCH ×3 (08:05→17:05)
[2016-10-20] MEDS: NEOMY SULF/BACITRAC ZN/POLY 15 GM TUBE TP SCH (08:06)
[2016-10-20] MEDS: DIGOXIN INJ 0.5 MG/2 ML AMPUL IV SCH (12:18)
[2016-10-20] MEDS: IV D5W 1,000 ML IV PRN ×2 (12:53→13:00)
[2016-10-20] MEDS ORDERED: IV NS 0.9% 250 ML IV ONE (15:36)
[2016-10-20] MEDS ORDERED: BLOOD IV SET 1 EA INFUS.SET MC ONE (15:37)
--- NOTE | 2016-10-20 17:37 | NUR ---
RN NOTES ONE UNIT OF PRBC STATED , PT STABLE, CONTINUE TO MONITOR PTB CLOSELY
--- NOTE | 2016-10-20 19:03 | NUR ---
RN NOTES PT STILL RECEIVING ONE UNIT OF PRBC'S TOLERATING WELL , CONTINUE TO MONITOR .
[2016-10-20] MEDS: RENAL NOVASOURCE 1,000 ML BOTTLE GT PRN (19:36)
--- NOTE | 2016-10-20 20:30 | NUR ---
RN NOTES ONE UNIT OF PRBC COMPELLED , NO REACTION NOTED .
[2016-10-20] MEDS: TEMAZEPAM 7.5 MG CAPSULE GT SCH (21:03)
--- NOTE | 2016-10-20 22:14 | NUR ---
RN NOTES PT REMAINS THE SAME ,TRACH CARE DONE, TF NOVASOURCE AT 35CCHR RUNNING VIA PEG TUBE , 80CC RESIDUAL NOTED, D5W AT 50CC/ RUNNING VIA L UPPER ARM PICC LINE , SILVEIRA DRAINING TO GRAVITY. SR UP x3, CALL LIGHT WITHIN EASY REACH , NO SIGNIFICANT CHANGES NOTED ON THIS SHIFT .
--- NOTE | 2016-10-20 23:30 | NUR ---
RN NOTES FAN RN ENDORSED CONTINUITY OF CARE. PRT RECEIVED ASLEEP AT THIS TIME RESPONSIVE TO PAIN. NO ACUTE RESP DISTRESS. WITH TRACH AND VENT SETTING TOLERATED WELL MOUTH WITH A SCANT AMT OF DRY BLOOD. NGTF WITH BLACK COLOR WITH 100 CC RESIDUAL. GTF CONTIUE. HOB KEPT ELEVATED. IV SITE ON BRANDON MIDLINE RUNNING WITH D5W @ 50 CC/HR AND CONNIE PICC LINE INTACT AND PATENT. F/C DRAINED WITH YELLOW COLOR URINE VIA GRAVITY. KEPT PT CLEAN AND COMFORTABLE IN BED. WILL CONTINUE TO MONITOR.
[2016-10-21] VITALS (7 sets, daily range): BP systolic 109–130; BP diastolic 31–65
[2016-10-21] MEDS: ALBUTEROL FS 2.5 MG/3 ML VIAL.NEB NEB SCH ×4 (01:32→19:27)
[2016-10-21] MEDS: IPRATROPIUM NEB FS 0.5 MG/2.5 ML AMPUL.NEB NEB SCH ×4 (01:32→19:27)
[2016-10-21] MEDS: METRONIDAZOLE 500 MG TABLET PO SCH ×3 (04:38→21:46)
[2016-10-21 06:44] LABS: BASOPHILS % (AUTO) 0.2 % (0.0-2.0); EOSINOPHILS # (AUTO) 0.5 /CMM (0.0-0.7); EOSINOPHILS % (AUTO) 2.6 % (0.0-6.0); HEMATOCRIT 23 % (39-51); HEMOGLOBIN 7.6 g/dL (13.5-17.5); LYMPHOCYTES # (AUTO) 0.9 /CMM (0.8-4.8); MEAN CORPUSCULAR HEMOGLOBIN 31 PG (26.0-33.0); MEAN CORPUSCULAR HGB CONC 33 g/dl (31.0-36.0); MEAN CORPUSCULAR VOLUME 94 fL (80-96); MONOCYTES # (AUTO) 0.8 /CMM (0.1-1.30); MONOCYTES % (AUTO) 4.2 % (2.0-12.0); PLATELET COUNT (AUTO) 169 /CMM (150-450); RDW COEFFICIENT OF VARIATION 18.1 (11.5-15.0); RED BLOOD CELL COUNT(AUTO) 2.48 MIL/uL (4.5-6.0); WHITE BLOOD COUNT (AUTO) 18.1 K/uL (4.3-11.0)
[2016-10-21 07:08] LABS: ALBUMIN 1.5 g/dL (3.4-5.0); BILIRUBIN,TOTAL 0.5 mg/dL (0.2-1.0); CALCIUM, SERUM 8.7 mg/dL (8.5-10.1); CREATININE 2.2 mg/dL (0.6-1.3); PHOSPHORUS 4.2 mg/dL (2.5-4.9); POTASSIUM 3.3 mmol/L (3.5-5.1); TOTAL PROTEIN, SERUM 4.8 g/dL (6.4-8.2)
--- NOTE | 2016-10-21 07:10 | NUR ---
RN NOTES PT ASLEEP WELL NO SIGNIFICANT CHANGE OF CONDITION PT STILL WITH RESIDUAL OF BLACK COLOR < 150 CC GTF CONTINUE ORDERED. LEXUS CUTE RESP DISTRESS. ENDORSED CONTINUITY OF CARE TO AM NURSE.
--- NOTE | 2016-10-21 07:10 | NUR ---
RN INITIAL NOTES RECEIVED PT IN BED, OBTUNDED, OPENS EYES, DOES NOT FOLLOW COMMANDS, PT IS ON [facility] VENT SHILEY # 8 AC 16 TV 500 FIO2 30% PEEP 5, NO S/S OF RESP. DISTRESS OR SOB NOTED AT THIS TIME, PT IS ON TELE MONITOR SHOWING ACCELERATED JUNCTIONAL @ 79 BPM, NO C/O DISCOMFORT OR PAIN AT THIS TIME, PT HAS F/C INTACT/PATENT, DRAINING WELL, PT HAS GTUBE, RUNNING NOVASOURCE @ 35ML/HR, TOLERATING WELL, NO RESIDUALS NOTED AT THIS TIME, PT IS NOTED WITH MULTIPLE SKIN ISSUES, PT HAS CONNIE PICC,SL, BRANDON MIDLINE, RUNNING D5W @ 50ML/HR, C/D/I/PATENT, FLUSHING WELL, NO S/S OF INFECTION/ INFILTRATION NOTED AT THIS TIME, ALL SAFETY MEASURES IN PLACE AT ALL TIMES, CALL LIGHT WITHIN EASY REACH, WILL MONITOR PT CLOSELY FOR CHANGES
--- NOTE | 2016-10-21 08:00 | NUR ---
RN NOTES PT WAS PLACED ON SIMV MODE, NO DISTRESS OR SOB NOTED AT THIS TIME, PT IS SATING 100%, WILL MONITOR CLOSELY FOR CHANGES
--- NOTE | 2016-10-21 08:28 | NUR ---
PT PLACED ON SIMV MODE PER MD ORDER. ZERO DISTRESS NOTED MARLENE. WELL AT THIS TIME. RN AWARE OF CHANGE. Addendum: 10/21/16 at 0829 by MARGO BUNN RT Amended: Links added.
[2016-10-21] MEDS: IV D5W 1,000 ML IV PRN (09:02)
[2016-10-21] MEDS: ACIDOPHILUS/BULGARICUS 1 EACH TAB.CHEW GT SCH ×2 (09:03→16:26)
[2016-10-21] MEDS: ASPIRIN 81 MG TAB.CHEW GT SCH (09:03)
[2016-10-21] MEDS: AMIODARONE HCL 200 MG TABLET PO SCH ×3 (09:03→16:29)
[2016-10-21] MEDS: PANTOPRAZOLE 40 MG/PACK PACK GT SCH (09:03)
[2016-10-21] MEDS: VALPROIC ACID 250 MG/5 ML UDC GT SCH ×2 (09:03→21:47)
[2016-10-21] MEDS: METOCLOPRAMIDE HCL 10 MG/2 ML VIAL IV SCH ×2 (09:03→16:27)
[2016-10-21] MEDS: NEOMY SULF/BACITRAC ZN/POLY 15 GM TUBE TP SCH (09:04)
[2016-10-21] MEDS: Z GUARD REMEDY 2 OZ OINT TP PRN (09:04)
[2016-10-21 10:20] LABS: ABG BASE EXCESS -0.7 mmol/L; ABG OXYGEN SATURATION 97.5 % (92.0-98.5); ABG PCO2 30.7 mmHg (35.0-45.0); ABG PH 7.483 (7.350-7.450); ABG PO2 118.7 mmHg (75.0-100.0); ABG TOTAL HEMOGLOBIN 7.7 G/dL (13.5-18.0); AaDO2 59.1 mmHg; COHb 1.2 % (0.5-1.5); MetHb 1.1 % (0.0-1.5); O2Hb 95.3 % (94.0-97.0); PEEP,BG 5 cm H2O; SITE, ABG Right Radial; VENT MODE, BG SIMV4 PSV12; VT, ABG 500 mL
[2016-10-21] MEDS ORDERED: POTASSIUM CHLORIDE 20 MEQ POWDER PACKET GT ONE (12:00)
[2016-10-21] MEDS: DIGOXIN INJ 0.5 MG/2 ML AMPUL IV SCH (12:06)
--- NOTE | 2016-10-21 18:25 | NUR ---
RN CLOSING NOTES PT REMAINED STABLE DURING SHIFT, ALL MD ORDERS CARRIED OUT, ALL MEDICATIONS GIVEN, GTUBE, RUNNING FEEDING ORDERED, IV REMAINED C/D/I/PATENT, RUNNING FLUIDS ORDERED, ALL TREATMENTS CARRIED OUT, PT KEPT CLEAN AND DRY, ALL SAFETY MEASURES IN PLACE AT ALL TIMES, REPORT WILL BE GIVEN TO PM RN FOR ALICIA
[2016-10-21] MEDS: RENAL NOVASOURCE 1,000 ML BOTTLE GT PRN (18:36)
[2016-10-21] MEDS: TEMAZEPAM 7.5 MG CAPSULE GT SCH (21:47)
[2016-10-22] VITALS (10 sets, daily range): BP systolic 118–151; BP diastolic 29–68
--- NOTE | 2016-10-22 01:05 | NUR ---
TD RN: CALLED AND NOTIFIED DR. WALLACE THAT GTF RESIDUAL REMAINED AT HIGH AT 400CC SINCE 1999 IN BROWN COLOR. DNP WT ORDER TO CHANGE REGLAN FREQUENCY FROM BID TO TID. NOTED AND CARRIED.
[2016-10-22] MEDS: ALBUTEROL FS 2.5 MG/3 ML VIAL.NEB NEB SCH ×4 (01:17→19:45)
[2016-10-22] MEDS: IPRATROPIUM NEB FS 0.5 MG/2.5 ML AMPUL.NEB NEB SCH ×4 (01:18→19:45)
[2016-10-22] MEDS ORDERED: METOCLOPRAMIDE HCL 10 MG/2 ML VIAL IV SCH (01:30)
[2016-10-22] MEDS ORDERED: METOCLOPRAMIDE HCL 10 MG/2 ML VIAL ONE (01:32)
[2016-10-22] MEDS: METOCLOPRAMIDE HCL 10 MG/2 ML VIAL IV SCH ×4 (01:45→17:46)
--- NOTE | 2016-10-22 04:00 | NUR ---
TD RN: GT RESIDUAL NOW AT 30CC AFTER GIVEN REGLAN AT 0130. WILL RESUME GTF AT 20ML/HR.
[2016-10-22] MEDS: METRONIDAZOLE 500 MG TABLET PO SCH ×3 (04:18→20:54)
[2016-10-22] MEDS: IV D5W 1,000 ML IV PRN (04:20)
--- NOTE | 2016-10-22 06:00 | NUR ---
TD RN: GT RESIDUAL STILL AT 30CC. WILL INCREASE RATE TO 25ML/HR. NOTED WITH MODERATE AMT. OF BLACK LIQUID STOOL. VS REMAINED WITH PT's BASELINE THROUGHOUT THE SHIFT. NO ACUTE DISTRESS, NO EVIDENCE OF DISCOMFORT. CONTINUE ON D5W AT 50ML/HR WT GOOD URINE OUTPUT. GOOD SKIN CARE RENDERED. ALL NEEDS MET.
[2016-10-22 07:27] LABS: BASOPHILS % (AUTO) 0.3 % (0.0-2.0); EOSINOPHILS # (AUTO) 0.3 /CMM (0.0-0.7); EOSINOPHILS % (AUTO) 2.1 % (0.0-6.0); HEMATOCRIT 21 % (39-51); LYMPHOCYTES # (AUTO) 0.7 /CMM (0.8-4.8); LYMPHOCYTES % (AUTO) 4.8 % (20.0-44.0); MEAN CORPUSCULAR HEMOGLOBIN 30 PG (26.0-33.0); MEAN CORPUSCULAR HGB CONC 33 g/dl (31.0-36.0); MEAN CORPUSCULAR VOLUME 93 fL (80-96); MONOCYTES # (AUTO) 0.5 /CMM (0.1-1.30); MONOCYTES % (AUTO) 3.3 % (2.0-12.0); NEUTROPHILS # (AUTO) 13.6 /CMM (1.8-8.9); NEUTROPHILS % (AUTO) 89.5 % (43.0-81.0); PLATELET COUNT (AUTO) 158 /CMM (150-450); RDW COEFFICIENT OF VARIATION 19.8 (11.5-15.0); RED BLOOD CELL COUNT(AUTO) 2.29 MIL/uL (4.5-6.0); WHITE BLOOD COUNT (AUTO) 15.2 K/uL (4.3-11.0)
[2016-10-22 07:41] LABS: CALCIUM, SERUM 8.7 mg/dL (8.5-10.1); POTASSIUM 3.1 mmol/L (3.5-5.1)
[2016-10-22 07:43] LABS: HEMOGLOBIN 6.9 g/dL (13.5-17.5)
--- NOTE | 2016-10-22 07:47 | NUR ---
Received male martinez pt on mechanical vent. Pt martinez is secure. Vent is plugged into a red outlet, alarms are audible, and BVM is at bedside. Addendum: 10/22/16 at 0748 by AYO FRENCH RT Amended: Links added.
--- NOTE | 2016-10-22 08:00 | NUR ---
TD/RN AM SHIFT INITIAL NOTES RECEIVED PT ASLEEP IN BED, NO ACUTE CHANGE OF CONDITION OF GRIMACE NOTED. PT OBTUNDED. ON VENTILATOR SET @ SIMV MODE, SATURATING @ 100%, LUNG SOUNDS DIMINISHED, SUCTIONED FOR AIRWAY CLEARANCE. ON TELE WITH JUNCTIONAL RHYTHM, HR TO. PT NOTED WITH +3 TO +4 EDEMA ON HANDS AND FEET. DVT SLEEVE ON. ON GOING GTF @ 25CC/HR, NOTED WITH 150CC GASTRIC RESIDUAL. PICC LINE WITH ON GOING INFUSION OF D5NS @ 50CC/HR, PATENT WITH POSITIVE BLOOD RETURN, NO S/S OF INFECTION. SILVEIAR CATHETER INTACT NOTED WITH TEA COLORED URINE OUTPUT. PT IS COMFORTABLE AT THIS TIME. CL WITHIN REACHED AND SAFETY MAINTAINED. ON GOING MONITORING.
[2016-10-22] MEDS: ACIDOPHILUS/BULGARICUS 1 EACH TAB.CHEW GT SCH ×2 (09:00→17:46)
[2016-10-22] MEDS: PANTOPRAZOLE 40 MG/PACK PACK GT SCH (09:00)
[2016-10-22] MEDS: VALPROIC ACID 250 MG/5 ML UDC GT SCH ×2 (09:00→20:54)
[2016-10-22] MEDS: ASPIRIN 81 MG TAB.CHEW GT SCH (09:00)
[2016-10-22] MEDS: AMIODARONE HCL 200 MG TABLET PO SCH ×2 (09:02→17:46)
[2016-10-22] MEDS: NEOMY SULF/BACITRAC ZN/POLY 15 GM TUBE TP SCH (09:02)
[2016-10-22 10:27] LABS: NEUTROPHILS % (MANUAL) 90 (42-76)
[2016-10-22 10:28] LABS: ANISOCYTOSIS 1+; EOSINOPHILS % (MANUAL) 1 % (0-4); LYMPHOCYTES % (MANUAL) 6 % (16-48); MONOCYTES % (MANUAL) 3 % (0-11.0); PLATELET ESTIMATE ADEQUATE
[2016-10-22] MEDS ORDERED: BLOOD IV SET 1 EA INFUS.SET MC ONE (10:41)
[2016-10-22] MEDS ORDERED: IV NS 0.9% 250 ML IV ONE (10:41)
--- NOTE | 2016-10-22 11:15 | NUR ---
WOUND CARE CONSULT: PT PRESENTS WITH MULTIPLE CO-MORBIDITIES. EDEMA TO LOWER AND UPPER EXTREMITIES NOTED TO BE 4+ AND PITTING. SACRAL DEEP TISSUE INJURY IN EVOLUTION NOW NOTED TO HAVE WOUND BED CHANGES WITH NECROTIC TISSUE. WOUND IS NOW UNSTAGEABLE. RECOMMEND SURGICAL FOLLOW UP FOR POSSIBLE DEBRIDEMENT. RECOMMEND HYDROGEL AND MEPILEX, OFFLOADING. DISCUSSED WITH NURSING STAFF AND MD. SURGICAL TEAM IS FOLLOWING PT. LEFT EAR DEEP TISSUE INJURY IN EVOLUTION, NO CARTILAGE SEEN. CONTINUE PRESENT TREATMENT AND OFFLOAD. ALL SKIN PROTECTION MEASURES IN PLACE. MD IN AGREEMENT WITH PLAN OF CARE. Addendum: 10/22/16 at 1130 by JULIANNE RODRIGUES WNDNU Amended: Links added.
--- NOTE | 2016-10-22 11:25 | NUR ---
TD/RN BLOOD TRANSFUSION ONE UNIT OF PRBC TRANSFUSION INITIATED. ON GOING MONITORING.
[2016-10-22] MEDS ORDERED: HYDROGEL DRESSING 90 GM TUBE TP PRN (11:30)
[2016-10-22] MEDS ORDERED: POTASSIUM CHLORIDE 10 MEQ TABLET.SA PO ONE (12:00)
--- NOTE | 2016-10-22 12:00 | NUR ---
TD/RN NOON ROUNDS BLOOD TRANSFUSION ON GOING, PT NOTED WITH 100ML OF GASTRIC RESIDUAL. NO CHANGE OF CONDITION. ON GOING MONITORING.
[2016-10-22] MEDS: HYDROGEL DRESSING 90 GM TUBE TP SCH (12:04)
--- NOTE | 2016-10-22 13:25 | NUR ---
Pt placed on CA per MD order Addendum: 10/22/16 at 1326 by AYO FRENCH RT Amended: Links added.
--- NOTE | 2016-10-22 13:30 | NUR ---
TD/RN VENT CHANGE - COOL AEROSOL VENT CHANGE TO COOL AEROSOL WITH 28% FIO2, PT SATURATING @ 100%, ON GOING MONITORING.
[2016-10-22 14:34] LABS: ABG BASE EXCESS -2.2 mmol/L; ABG OXYGEN SATURATION 98.1 % (92.0-98.5); ABG PCO2 27.2 mmHg (35.0-45.0); ABG PO2 136.3 mmHg (75.0-100.0); ABG TOTAL HEMOGLOBIN 10.1 G/dL (13.5-18.0); AaDO2 31.2 mmHg; COHb 0.7 % (0.5-1.5); O2Hb 96.4 % (94.0-97.0); SITE, ABG Right Radial; VENT MODE, BG CA 28%
[2016-10-22] MEDS ORDERED: LIDOCAINE 1%-EPI 1:100,000 20 ML VIAL TP ONE (16:30)
[2016-10-22] MEDS ORDERED: SILVER NITRATE APPLICATOR 1 EA BOX TP ONE (16:30)
--- NOTE | 2016-10-22 19:18 | NUR ---
TD/RN AM SHIFT END NOTES NO ACUTE CHANGE OF CONDITION NOTED DURING THE SHIFT. PT TOLERATING COOL AEROSOL. NEEDS MET. PT ENDORSED TO PM NURSE TO CONTINUE CARE. CL WITHIN REACHED AND SAFETY MAINTAINED.
--- NOTE | 2016-10-22 20:00 | NUR ---
CULINARY INTERN: RECEIVED PT ASLEEP IN BED, NO ACUTE DISTRESS, PT OBTUNDED. ON COOL AEROSOL 28 %, SATURATING @ 100%, LUNG SOUNDS DIMINISHED, SUCTIONED FOR AIRWAY CLEARANCE. ON TELE SINUS RHYTHM, HR TO. PT NOTED WITH +3 TO +4 EDEMA ON HANDS AND FEET. DVT SLEEVE ON. ON GOING GTF @ 25CC/HR, NOTED WITH 130CC GASTRIC RESIDUAL. PICC LINE WITH ON GOING INFUSION OF D5W @ 80CC/HR, PATENT WITH POSITIVE BLOOD RETURN, NO S/S OF INFECTION. SILVEIRA CATHETER INTACT NOTED WITH TEA COLORED URINE OUTPUT. PT IS COMFORTABLE AT THIS TIME. CL WITHIN REACHED AND SAFETY MAINTAINED. ON GOING MONITORING.
[2016-10-22] MEDS: TEMAZEPAM 7.5 MG CAPSULE GT SCH (20:54)
[2016-10-23] VITALS (29 sets, daily range): BP systolic 75–149; BP diastolic 23–77
[2016-10-23] MEDS: IPRATROPIUM NEB FS 0.5 MG/2.5 ML AMPUL.NEB NEB SCH ×3 (01:57→13:15)
[2016-10-23] MEDS: ALBUTEROL FS 2.5 MG/3 ML VIAL.NEB NEB SCH ×3 (01:57→13:15)
[2016-10-23] MEDS: IV D5W 1,000 ML IV PRN (04:14)
[2016-10-23] MEDS: RENAL NOVASOURCE 1,000 ML BOTTLE GT PRN (04:14)
[2016-10-23] MEDS: METRONIDAZOLE 500 MG TABLET PO SCH ×2 (04:14→13:12)
--- NOTE | 2016-10-23 08:00 | NUR ---
TD/RN AM SHIFT INITIAL NOTES RECEIVED PT ASLEEP IN BED, NO RESPIRATORY DISTRESS OR CHANGE OF CONDITION NOTED. PT OPEN EYES, OBTUNDED. ON COOL AEROSOL WITH 28% FIO2, SATURATING @ 98%, LUNG SOUNDS RHONCHI. PT NOTED WITH BLOOD TINGED SECRETIONS. ON TELE WITH JUNCTIONAL RHYTHM, HR 68. PT WITH ON GOING IV INFUSION OF D5W @ 80CC/HR, PICC LINE POSITIVE OF BLOOD RETURN, NO S/S OF INFECTION. SILVEIRA CATHETER INTACT WITH NOTED YELLOW URINE OUTPUT. ON GOING GTF @ 25CC/HR, WITH 30CC GASTRIC RESIDUAL, BROWN IN COLOR, GT SITE LEAKING, PRESSURE DRESSING APPLIED. PT HAS +3-4 PITTING EDEMA ON HANDS AND FEET. PT COMFORTABLE, SCHEDULED AM MEDS TO BE GIVEN. CL WITHIN REACHED AND SAFETY MAINTAINED. ON GOING MONITORING.
[2016-10-23 08:48] LABS: BASOPHILS % (AUTO) 0.2 % (0.0-2.0); EOSINOPHILS # (AUTO) 0.2 /CMM (0.0-0.7); EOSINOPHILS % (AUTO) 1.4 % (0.0-6.0); HEMATOCRIT 24 % (39-51); HEMOGLOBIN 7.7 g/dL (13.5-17.5); LYMPHOCYTES # (AUTO) 0.8 /CMM (0.8-4.8); LYMPHOCYTES % (AUTO) 5.9 % (20.0-44.0); MEAN CORPUSCULAR HEMOGLOBIN 30 PG (26.0-33.0); MEAN CORPUSCULAR HGB CONC 32 g/dl (31.0-36.0); MEAN CORPUSCULAR VOLUME 92 fL (80-96); MONOCYTES # (AUTO) 0.7 /CMM (0.1-1.30); MONOCYTES % (AUTO) 4.9 % (2.0-12.0); NEUTROPHILS # (AUTO) 12.5 /CMM (1.8-8.9); NEUTROPHILS % (AUTO) 87.6 % (43.0-81.0); PLATELET COUNT (AUTO) 192 /CMM (150-450); RDW COEFFICIENT OF VARIATION 18.5 (11.5-15.0); RED BLOOD CELL COUNT(AUTO) 2.59 MIL/uL (4.5-6.0); WHITE BLOOD COUNT (AUTO) 14.2 K/uL (4.3-11.0)
[2016-10-23] MEDS: PANTOPRAZOLE 40 MG/PACK PACK GT SCH (09:05)
[2016-10-23] MEDS: ASPIRIN 81 MG TAB.CHEW GT SCH (09:05)
[2016-10-23] MEDS: VALPROIC ACID 250 MG/5 ML UDC GT SCH (09:06)
[2016-10-23] MEDS: ACIDOPHILUS/BULGARICUS 1 EACH TAB.CHEW GT SCH (09:06)
[2016-10-23] MEDS: METOCLOPRAMIDE HCL 10 MG/2 ML VIAL IV SCH ×2 (09:06→13:12)
[2016-10-23] MEDS: AMIODARONE HCL 200 MG TABLET PO SCH (09:06)
[2016-10-23] MEDS: HYDROGEL DRESSING 90 GM TUBE TP SCH (09:07)
[2016-10-23] MEDS: NEOMY SULF/BACITRAC ZN/POLY 15 GM TUBE TP SCH (09:07)
[2016-10-23 09:35] LABS: CALCIUM, SERUM 8.9 mg/dL (8.5-10.1); CREATININE 1.8 mg/dL (0.6-1.3); POTASSIUM 3.3 mmol/L (3.5-5.1)
--- NOTE | 2016-10-23 11:55 | NUR ---
TD/RN KERRY JACOBO PT WAS HAVING WOUND DEBRIDEMENT WITH CAMPUS AIDE WITH (2) NURSING STUDENTS ASSISTING. WHILE I WAS WITH ANOTHER PT, I WAS NOTIFIED BY NURSES STATION THAT PT WAS HAVING RESPIRATORY DISTRESS. WHEN I ENTERED THE ROOM, CODE ODALIS WAS ALREADY IN PROGRESS. I JOINED THE TEAM A RECORDER. ER MD HEADING THE CODE, COMPRESSION ON GOING, RHYTHM PEA, PT WAS GIVEN 1MG OF EPINEPHRINE IVP. COMPRESSION CONTINUED, ASYSTOLE. CODE WAS CALLED OFF @ 1206. WHEN I WAS PREPARING THE BODY, PT NOTED TO BE AWAKEN, GASPING FOR AIR, EYE OPENED, STARTED TO BAG PT, VERIFIED BY INSPECTOR GOLF BALL, RHYTHM, JUNCTIONAL TACHY, HR 99. DR. CORTES UPDATED PT'S CONDITION, HE ENTERED THE ROOM AND ORDERED PT TO BE TRANSFERRED TO ICU.
--- NOTE | 2016-10-23 11:55 | NUR ---
LATE ENTRY: CODE BLUE CALLED OVERHEAD AT 1155. PT FOUND PULSELESS CPR INITIATED. PT VENTILATED VIA AMBUBAG TO TRACH. ER MD AT BEDSIDE WITH CHARGE NURSE.
[2016-10-23] MEDS ORDERED: SODIUM BICARBONATE SYR 50 MEQ/50 ML DISP.SYRIN IV ONE (12:08)
[2016-10-23] MEDS ORDERED: POTASSIUM CHLORIDE 20 MEQ POWDER PACKET GT ONE (12:30)
--- NOTE | 2016-10-23 12:45 | NUR ---
RN INITIAL NOTES RECEIVED PT FROM [facility] VIA BED. SP CODE BLUE. PT ON MECH VENT WITH FF SETTINGS: AC16, TV550, FI02 80%, PEEP 0. TRACH, SHILEY #8, IN PLACE. HOB ELEVATED. PT CONNECTED TO MONITOR, SINUS RHYTHM AT 73 WITH LONG PAUSES.PICC ON CONNIE IN PLACE. GT IN PLACE. FC IN PLACE. PT PLACED COMFORTABLY IN BED. WILL CALL [employer] TO NOTIFY OF TRANSFER. WILL CLSOELY MONITOR.
--- NOTE | 2016-10-23 12:48 | NUR ---
RT PT PLACED ON VENT POST CARDIAC ARREST, SETTINGS BY DR. MORALES. VENT ALARMS ARE SET AND AUDIBLE WITH BVM BY BEDSIDE. PUNCHING MACHINE OPERATOR CUFF PRESSURE NOTED. VENT IS PLUGGED INTO RED OUTLET. WILL CONTINUE TO MONITOR. Addendum: 10/23/16 at 1251 by CONNER CHANEY RT Amended: Links added.
--- NOTE | 2016-10-23 13:00 | NUR ---
RN NOTES SEEN AND EXAMINED BY DR. MORALES. YAZMIN CHARGE NURSE AND DR. MORALES CALLED ANA LAURA (SON) #[phone]. MD DISCUSSED PT'S CURRENT STATUS. SON AWARE PT SP CODE BLUE. LATEST SBP 90S, HR FLUCTUATING. ANA LAURA DECIDED TO CHANGE CODE STATUS TO DNR. ORDER NOTED AND CARRIED OUT
--- NOTE | 2016-10-23 14:10 | NUR ---
Met with glenroy Caraballo and Dr Moon at bedside rm 258. Son weeping. Son instructs me and Dr Moon to begin comfort care now as son wants all machines and "needles" to stop. Comfort care orders per Dr Moon
[2016-10-23 14:13] LABS: ABG BASE EXCESS -3.6 mmol/L; ABG OXYGEN SATURATION 97.9 % (92.0-98.5); ABG PCO2 26.1 mmHg (35.0-45.0); ABG PH 7.484 (7.350-7.450); ABG PO2 134.9 mmHg (75.0-100.0); ABG TOTAL HEMOGLOBIN 7.9 G/dL (13.5-18.0); AaDO2 192.2 mmHg; COHb 1.1 % (0.5-1.5); MetHb 1.4 % (0.0-1.5); O2Hb 95.5 % (94.0-97.0); PEEP,BG 0 cm H2O; SITE, ABG Right Brachial; VT, ABG 550 mL
--- NOTE | 2016-10-23 14:15 | NUR ---
RN NOTES DR. MORALES IN THE UNIT. DISCUSSED CURRENT PT'S STATUS WITH ANA LAURA (SON). SON DECIDED TO CHANGE CODE STATUS TO COMFORT CARE, DR. MORALES AWARE. CODE STATUS CHANGED. PER MD, WILL DC ALL MEDS, WILL ORDER ATIVAN AND MORPHINE AND WILL DC VENT 1 HR AFTER MORPHINE AND ATIVAN GIVEN. SON AT BEDSIDE VERBALIZED UNDERSTANDING. WILL MONITOR.
[2016-10-23] MEDS ORDERED: MORPHINE SULFATE INJ 4 MG/ML DISP.SYRIN IV ONE (14:30)
[2016-10-23] MEDS: LORAZEPAM INJ 2 MG/ML VIAL IV PRN ×2 (14:38→17:58)
--- NOTE | 2016-10-23 14:53 | NUR ---
RN NOTES PT GIVEN ATIVAN AND MORPHINE ORDERED. PT PLACED ON T-PIECE AT 28% ORDERED. HOB ELEVATED. WILL CLOSELY MONITOR. SON AT BEDSIDE AWARE.
--- NOTE | 2016-10-23 14:57 | NUR ---
placed into cool aerosol @ 28% fio2 as ordered, son @ bedside. Addendum: 10/23/16 at 1457 by VALENCIA GUTIÉRREZ RT Amended: Links added.
--- NOTE | 2016-10-23 18:43 | NUR ---
RN CLOSING NOTES PT ON COMFORT CARE. TRACH IN PLACE. T-PIECE AT 28%. HOB ELEVATED. NO RESPIRATORY DISTRESS NOTED. NO SIGS OF PAIN NOTED. PICC LINE IN PLACE. GT CLAMPED. FC IN PLACE. KEPT CLEAN AND DRY. REPOSITIONED Q2. KEPT COMFORTABLE. WILL ENDORSE FOR CONTINUITY OF CARE.
--- NOTE | 2016-10-23 19:53 | NUR ---
CASEY SAW OPERATOR. INITIAL ASSESSMENT. RECEIVED THE PT REST ON THE BED. TRACH ON PLACED. SHILEY #8, OXYGEN CONNECTED TO TRACH T PIECE 20%. SAT 90%. PT ON COMFORT MEASURE. IV LT UPPER ARM PICC LINE. MPO. GT CLAMPED. FC PATENT. HOB ELEVATED. WILL CONTINUE TO MONITOR VITALS.
[2016-10-23] MEDS: MORPHINE SULFATE INJ 4 MG/ML DISP.SYRIN IV PRN ×2 (20:58→22:53)
[2016-10-24] VITALS: BP 77/40
[2016-10-24 01:00] VITALS: BP 84/30
[2016-10-24 01:15] VITALS: BP 71/27
[2016-10-24] MEDS: MORPHINE SULFATE INJ 4 MG/ML DISP.SYRIN IV PRN (01:36)
--- NOTE | 2016-10-24 02:36 | NUR ---
ELECTRONIC TRANSACTION IMPLEMENTER. PT AT 209. CARDIO PULMONARY ARREST. DECLARED BY CHARGE NURSE ED RN. NO HEART BEAT,PUPAL DILATED AND FIXED..PT WAS ON COMFORT MEASURE. NOTIFIED [facility] AT 219. CASE #[id number] ( SORAYA ) CARE GIVEN. CALLED PT VIOLET DU. AT 219. BODY AND BELONGINGS SEND TO [facility].
== END 2016-10-24 02:10 | disposition expired | DRG 3 ==
LOC: ER 14:48 → TELE 17:17 → MED 10-01 08:36 → ICU 10-04 04:47 → TELE-TD 10-19 16:15 → ICU 10-23 12:31
PROVIDERS: ADMIT Student in an Organized Health Care Education/Training Program; ATTEND Student in an Organized Health Care Education/Training Program
PROC: 5A1955Z Respiratory Ventilation, Greater than 96 Consecutive Hours (ICD-10-PCS; principal; 2016-10-04)
PROC: 0BH17EZ Insertion of Endotracheal Airway into Trachea, Via Natural or Artificial Opening (ICD-10-PCS; 2016-10-04)
PROC: 02HV33Z Insertion of Infusion Device into Superior Vena Cava, Percutaneous Approach (ICD-10-PCS; 2016-10-05)
PROC: B548ZZA Ultrasonography of Superior Vena Cava, Guidance (ICD-10-PCS; 2016-10-05)
PROC: 0DH63UZ Insertion of Feeding Device into Stomach, Percutaneous Approach (ICD-10-PCS; 2016-10-06)
PROC: 30233N1 Transfusion of Nonautologous Red Blood Cells into Peripheral Vein, Percutaneous Approach (ICD-10-PCS; 2016-10-16)
PROC: 0DJ08ZZ Inspection of Upper Intestinal Tract, Via Natural or Artificial Opening Endoscopic (ICD-10-PCS; 2016-10-17)
PROC: 0KBP0ZZ Excision of Left Hip Muscle, Open Approach (ICD-10-PCS; 2016-10-23)
PROC: 0KBN0ZZ Excision of Right Hip Muscle, Open Approach (ICD-10-PCS; 2016-10-23)
PROC: 0B110F4 Bypass Trachea to Cutaneous with Tracheostomy Device, Open Approach (ICD-10-PCS; 2016-10-24)
DX: A41.9 Sepsis, unspecified organism (principal); I21.4 Non-ST elevation (NSTEMI) myocardial infarction; N17.0 Acute kidney failure with tubular necrosis; R65.21 Severe sepsis with septic shock; J69.0 Pneumonitis due to inhalation of food and vomit; E43 Unspecified severe protein-calorie malnutrition; G92 Toxic encephalopathy; J96.01 Acute respiratory failure with hypoxia; J96.02 Acute respiratory failure with hypercapnia; L89.894 Pressure ulcer of other site, stage 4; N39.0 Urinary tract infection, site not specified; E87.0 Hyperosmolality and hypernatremia; D62 Acute posthemorrhagic anemia; J90 Pleural effusion, not elsewhere classified; J44.0 Chronic obstructive pulmonary disease with (acute) lower respiratory infection; J44.1 Chronic obstructive pulmonary disease with (acute) exacerbation; J98.11 Atelectasis; K92.2 Gastrointestinal hemorrhage, unspecified; E86.0 Dehydration; I48.91 Unspecified atrial fibrillation; D50.0 Iron deficiency anemia secondary to blood loss (chronic); D69.2 Other nonthrombocytopenic purpura; L85.3 Xerosis cutis; R13.10 Dysphagia, unspecified; E88.09 Other disorders of plasma-protein metabolism, not elsewhere classified; S40.022A Contusion of left upper arm, initial encounter; X58.XXXA Exposure to other specified factors, initial encounter; Y93.9 Activity, unspecified; Y92.129 Unspecified place in nursing home as the place of occurrence of the external cause; L89.621 Pressure ulcer of left heel, stage 1; L89.611 Pressure ulcer of right heel, stage 1; L89.150 Pressure ulcer of sacral region, unstageable; E87.5 Hyperkalemia; F03.90 Unspecified dementia, unspecified severity, without behavioral disturbance, psychotic disturbance, mood disturbance, and anxiety; I11.0 Hypertensive heart disease with heart failure; I50.9 Heart failure, unspecified; I25.2 Old myocardial infarction; Z86.61 Personal history of infections of the central nervous system
CPT/HCPCS: 31720; 36415; 36569; 36600; 43246; 70450-TC; 71010-TC; 80048-TC; 80053-TC; 80061-TC; 80076-TC; 80162-TC; 80202-TC; 81000-TC; 82247-TC; 82248-TC; 82272-TC; 82306; 82378; 82668; 82728-TC; 82746; 82803-TC; 82962-TC; 83010; 83540-TC; 83615-TC; 83690-TC; 83735-TC; 84100-TC; 84443-TC; 84484-TC; 84550-TC; 85025-TC; 85027-TC; 85045-TC; 85610-TC; 85652-TC; 85730-TC; 86850-TC; 86880-TC; 86921-TC; 87040-TC; 87070-TC; 87081-TC; 87086-TC; 88305-TC; 92521; 92950-TC; 94002-TC; 94003-TC; 94640-TC; 94664-TC; 94760-TC; 94799-TC; 97001-TC; 99082-TC; A4216; A4606; A4623; A6248; A6253; A6402; A6403; C1751; J0282; J0330; J0360; J0690; J0692; J1160; J1650; J1940; J2060; J2185; J2248; J2250; J2270; J2370; J2543; J2704; J2765; J3370; J3480; J3490; J7030; J7040; J7042; J7050; J7060; J7070; P9016-BL; P9047; Z7610